=== PATIENT | male | born 1960 | race Two or more races ===

== ENCOUNTER → 2016-11-23 | Outpatient (CLI) | payer OTHER | LOC: RAD 11:54 | PROVIDERS: ATTEND Family Medicine | DX: M25.561 Pain in right knee (principal); M25.562 Pain in left knee; M25.511 Pain in right shoulder; M25.512 Pain in left shoulder; M17.12 Unilateral primary osteoarthritis, left knee; M11.261 Other chondrocalcinosis, right knee ==

== ENCOUNTER → 2016-11-28 | Outpatient (CLI) | payer OTHER | LOC: RAD 13:39 | DX: B18.2 Chronic viral hepatitis C (principal); R10.84 Generalized abdominal pain | CPT/HCPCS: 74150 ==

== ENCOUNTER → 2017-06-17 | Outpatient (CLI) | payer MEDICAID ==
--- NOTE | 2017-06-17 10:36 | RADIOLOGY REPORT (SQ) ---
EXAM DESCRIPTION: C SP 4 OR 5 VIEWS COMPLETED DATE/TIME: 06/17/2017 9:11 am REASON FOR STUDY: CERVICALGIA M54.2 CERVICALGIA COMPARISON: None. NUMBER OF VIEWS: Five views. TECHNIQUE: AP, lateral, obliques and odontoid radiographic images acquired of the cervical spine. LIMITATIONS: None. FINDINGS: MINERALIZATION: Normal. ALIGNMENT: There is straightening cervical spine on the lateral view. VERTEBRAE: Vertebral bodies of normal height. DISCS: There is mild disc space narrowing at C5-6 with anterior and posterior osteophytes. FORAMINA: No osteophytes or foraminal narrowing. LATERAL AND POSTERIOR ELEMENTS: Facets, lateral masses and spinous processes without significant find ings. HARDWARE: None in the spine. SOFT TISSUES: No masses or calcifications. Lung apices clear. OTHER: No other significant finding. IMPRESSION: 1. Mild degenerative disc disease and spondylosis. 2. There is straightening of the cervical spine. TECHNICAL DOCUMENTATION: JOB ID: [id number] [email or web address]- All Rights Reserved
== END ==
LOC: OD 08:35
PROVIDERS: ATTEND Family Medicine
DX: M54.2 Cervicalgia (principal); M50.30 Other cervical disc degeneration, unspecified cervical region; M47.892 Other spondylosis, cervical region
CPT/HCPCS: 72050

== ENCOUNTER 2017-07-03 08:32 | Day surgery (SDC) | payer MEDICAID ==
[~2017-07-03 08:32] MED LIST: DIPHENHYDRAMINE HCL 50 MG/ML VIAL ONE; EPINEPHRINE INJ 1 MG/10 ML DISP.SYRIN ONE; FLUMAZENIL INJ 0.5 MG/5 ML VIAL IV ONE; GLUCAGON,HUMAN RECOMB 1 MG INJ ONE; MIDAZOLAM 2 MG/2 ML INJ ONE; NALOXONE HCL INJ/PF 0.4 MG/1 ML SDV ONE; ONDANSETRON HCL INJ/PF 4 MG/2 ML SDV ONE
[2017-07-03] MEDS: MIDAZOLAM 2 MG/2 ML INJ ONE ×2 (09:39→09:48)
[2017-07-03] MEDS: FENTANYL CITRATE INJ/PF 100 MCG/2 ML AMPUL ONE ×4 (09:41→09:51)
--- NOTE | 2017-07-03 10:13 | Operative Report ---
Operative Report DATE OF SURGERY: 07/03/17 Operative Report: The risks, benefits and alternatives of the procedure including risks of bleeding, perforation requiring surgery are explained to the patient in detail and informed consent was obtained. Patient was taken back to the endoscopy suite and placed in the left, lateral decubital position. A rectal examination was done which did not reveal any masses tenderness or fissures. Timeout was called. Conscious sedation medications are provided. An Olympus videoscope was inserted into the patient's rectum. It is carefully guided all the way to the cecum. Cecum was identified by the usual anatomical landmarks including the ileocecal valve as well as appendiceal office. Prep is good. Scope was then sequentially pulled back via the various segments of the colon including the ascending colon, hepatic flexure, transverse colon, splenic flexure, descending colon and finding to the rectosigmoid portions of the colon. Retroflexion maneuver is performed. The risks benefits and alternatives of the procedure explained to the patient in detail and informed consent is obtained.A GIF Olympus video scope was inserted into the patient's mouth and hypopharynx, the esophagus is identified intubated and insufflated, the scope was then advanced through the esophagus stomach and duodenum, retroflexion maneuver is done, the esophagus stomach and first and second portions of the duodenum examined PREOPERATIVE DIAGNOSIS: Blood in the stool ,epigastric pain rule out peptic ulcer disease POSTOPERATIVE DIAGNOSIS: Colon polyp was removed via snare polypectomy. Internal hemorrhoids. Gastritis status post biopsy. Duodenitis OPERATION: Colonoscopy with biopsy. EGD with biopsy SURGEON: NEYDA CHRISTIANSON ANESTHESIA: Moderate Sedation - 6 mg of Versed, 125 mcg of fentanyl. Conscious sedation monitoring time 30 minutes. TISSUE REMOVED OR ALTERED: Colon polyp removed and retrieved. Gastric mucosal specimens obtained to rule out Helicobacter pylori. Distal esophageal specimens obtained to rule out Poole's esophagus COMPLICATIONS: None. ESTIMATED BLOOD LOSS: None. INTRAOPERATIVE FINDINGS: As noted above. PROCEDURE: Patient tolerated procedure well. No immediate postprocedure complications are noted. Patient discharged in good condition. Discharge date 07/03/2017. Discharge diet: Regular. Discharge activity: Regular. 2-3 week follow-up to discuss findings. Patient is instructed to call the office or proceed to the emergency room should there be any further problems or questions. We will wait on biopsies. Surveillance in 5 years
[2017-07-03 11:10] VITALS: BP 142/82
== END 2017-07-03 11:15 | disposition home or self-care (01) ==
LOC: END 08:32
PROVIDERS: ATTEND Internal Medicine Gastroenterology
PROC: 0DBN8ZX Excision of Sigmoid Colon, Via Natural or Artificial Opening Endoscopic, Diagnostic (ICD-10-PCS; 2017-07-03)
PROC: 0DB68ZX Excision of Stomach, Via Natural or Artificial Opening Endoscopic, Diagnostic (ICD-10-PCS; principal; 2017-07-03 09:00)
PROC: 0DB58ZX Excision of Esophagus, Via Natural or Artificial Opening Endoscopic, Diagnostic (ICD-10-PCS; 2017-07-03 09:00)
DX: K63.5 Polyp of colon (principal); K64.8 Other hemorrhoids; K92.1 Melena; K29.80 Duodenitis without bleeding; K29.50 Unspecified chronic gastritis without bleeding; M19.90 Unspecified osteoarthritis, unspecified site; B18.2 Chronic viral hepatitis C; F41.9 Anxiety disorder, unspecified; F32.9 Major depressive disorder, single episode, unspecified; B19.20 Unspecified viral hepatitis C without hepatic coma; Z87.891 Personal history of nicotine dependence; Z79.899 Other long term (current) drug therapy
CPT/HCPCS: 43239; 45380; 88305 ×2; J2250; J3010; J0171; J1200; J1610; J2310; J2405; J3490

== ENCOUNTER → 2018-02-07 | Outpatient (CLI) | payer MEDICAID ==
[2018-02-10 09:37] LABS: HEPATITIS C QUANTITATION HCV Not Detected IU/mL (.)
== END ==
LOC: OD 11:10
PROVIDERS: ATTEND Internal Medicine Gastroenterology
DX: B18.2 Chronic viral hepatitis C (principal); R79.89 Other specified abnormal findings of blood chemistry
CPT/HCPCS: 36415; 87522

== ENCOUNTER → 2018-04-18 | Outpatient (CLI) | payer MEDICAID ==
--- NOTE | 2018-04-18 16:05 | RADIOLOGY REPORT (SQ) ---
EXAM DESCRIPTION: FOOT LEFT COMPLETE COMPLETED DATE/TIME: 04/18/2018 3:56 pm REASON FOR STUDY: PAIN IN LEFT FOOT M25.561 PAIN IN RIGHT KNEE M25.562 PAIN IN LEFT KNEE M79.672 PAIN IN LEFT FOOT COMPARISON: None. NUMBER OF VIEWS: Three views. TECHNIQUE: AP, lateral and oblique radiographic images acquired of the left foot. LIMITATIONS: None. FINDINGS: MINERALIZATION: Normal. BONES: No acute fracture or dislocation. No worrisome bone lesions. JOINTS: No effusions. SOFT TISSUES: There is some soft tissue swelling adjacent to the head of the 1st metatarsal. There a re some small calcifications. There is no significant erosion of the head of the 1st metatarsal. OTHER: No other significant finding. IMPRESSION: Mild soft tissue swelling with calcifications adjacent to the head of the 1st metatarsal . This could indicate early development of a gouty tophus. Correlate clinically. TECHNICAL DOCUMENTATION: JOB ID: [id number] [employer]- All Rights Reserved Reading location - IP/workstation name: [email or web address]
--- NOTE | 2018-04-18 16:07 | RADIOLOGY REPORT (SQ) ---
EXAM DESCRIPTION: KNEE LEFT 4 VIEWS COMPLETED DATE/TIME: 04/18/2018 3:56 pm REASON FOR STUDY: PAIN IN LEFT KNEE M25.561 PAIN IN RIGHT KNEE M25.562 PAIN IN LEFT KNEE M79.672 PAIN IN LEFT FOOT COMPARISON: 11/23/2016 NUMBER OF VIEWS: Four views. TECHNIQUE: AP, lateral, and both oblique radiographic images acquired of the left knee. LIMITATIONS: None. FINDINGS: MINERALIZATION: Normal. BONES: No acute fracture or dislocation. No worrisome bone lesions. JOINT: There is a small joint effusion. Meniscal calcifications are seen in the lateral joint. Ther e is slight narrowing of the medial joint compartment. SOFT TISSUES: No soft tissue swelling. No radio-opaque foreign body. OTHER: No other significant finding. IMPRESSION: Mild degenerative joint changes. Small joint effusion. No fracture. TECHNICAL DOCUMENTATION: JOB ID: [id number] [employer]- All Rights Reserved Reading location - IP/workstation name: [email or web address]
--- NOTE | 2018-04-18 16:09 | RADIOLOGY REPORT (SQ) ---
EXAM DESCRIPTION: KNEE RIGHT 4 VIEWS COMPLETED DATE/TIME: 04/18/2018 3:56 pm REASON FOR STUDY: PAIN IN RIGHT KNEE M25.561 PAIN IN RIGHT KNEE M25.562 PAIN IN LEFT KNEE M79.672 PAIN IN LEFT FOOT COMPARISON: 11/23/2016 NUMBER OF VIEWS: Four views. TECHNIQUE: AP, lateral, and both oblique radiographic images acquired of the right knee. LIMITATIONS: None. FINDINGS: MINERALIZATION: Normal. BONES: No acute fracture or dislocation. No worrisome bone lesions. JOINT: Meniscal calcifications. No joint effusion. SOFT TISSUES: No soft tissue swelling. No radio-opaque foreign body. OTHER: None IMPRESSION: Meniscal calcifications. No joint effusion or other acute abnormality. TECHNICAL DOCUMENTATION: JOB ID: [id number] [employer]- All Rights Reserved Reading location - IP/workstation name: [email or web address]
== END ==
LOC: RAD 15:23
PROVIDERS: ATTEND Family Medicine
DX: M25.561 Pain in right knee (principal); M25.562 Pain in left knee; M25.462 Effusion, left knee; M79.672 Pain in left foot; M25.861 Other specified joint disorders, right knee

== ENCOUNTER 2018-06-13 07:52 | Day surgery (SDC) | payer MEDICAID ==
[2018-06-13] MEDS ORDERED: ONDANSETRON HCL INJ/PF 4 MG/2 ML SDV ONE (07:55)
[2018-06-13] MEDS ORDERED: DIPHENHYDRAMINE HCL 50 MG/ML VIAL ONE (07:55)
[2018-06-13] MEDS ORDERED: NALOXONE HCL INJ/PF 0.4 MG/1 ML SDV ONE (07:56)
[2018-06-13] MEDS ORDERED: FLUMAZENIL INJ 0.5 MG/5 ML VIAL ONE (07:56)
[2018-06-13] MEDS ORDERED: EPINEPHRINE INJ 1 MG/10 ML DISP.SYRIN ONE (07:57)
[2018-06-13] MEDS ORDERED: GLUCAGON,HUMAN RECOMB 1 MG INJ ONE (07:57)
[2018-06-13] MEDS: MIDAZOLAM 2 MG/2 ML INJ ONE ×2 (08:18→08:24)
[2018-06-13] MEDS: FENTANYL CITRATE INJ/PF 100 MCG/2 ML AMPUL ONE ×3 (08:20→08:26)
--- NOTE | 2018-06-13 08:32 | Operative Report ---
Operative Report DATE OF SURGERY: 06/13/18 Operative Report: The risks benefits and alternatives of the procedure explained to the patient in detail and informed consent is obtained.A GIF Olympus video scope was inserted into the patient's mouth and hypopharynx, the esophagus is identified intubated and insufflated, the scope was then advanced through the esophagus stomach and duodenum , retroflexion maneuver is done, the esophagus stomach and first and second portions of the duodenum examined PREOPERATIVE DIAGNOSIS: Epigastric pain history of nonsteroidal use POSTOPERATIVE DIAGNOSIS: Gastric erosion. Gastritis status post biopsy rule out Helicobacter pylori OPERATION: EGD with biopsy SURGEON: NEYDA CHRISTIANSON ANESTHESIA: Moderate Sedation - 4 mg of Versed, 100 mcg of fentanyl. Conscious sedation monitoring time 30 minutes. TISSUE REMOVED OR ALTERED: As noted above. COMPLICATIONS: None. ESTIMATED BLOOD LOSS: None. INTRAOPERATIVE FINDINGS: As noted above. PROCEDURE: Patient tolerated the procedure well. No immediate postprocedure comp occasions are noted. Patient discharged in good condition. Discharge date 06/13/2018. Discharge diet: Regular. Discharge activity: Regular. 2-3 week follow-up to discuss findings. Patient is instructed call the office or proceed to the emergency room should there be any further problems or questions. We will wait on the pathology.
[2018-06-13 09:54] VITALS: BP 134/70
== END 2018-06-13 09:30 | disposition home or self-care (01) ==
LOC: END 07:52
PROVIDERS: ATTEND Internal Medicine Gastroenterology
DX: K29.50 Unspecified chronic gastritis without bleeding (principal); K92.1 Melena; B18.2 Chronic viral hepatitis C; K21.9 Gastro-esophageal reflux disease without esophagitis; Z87.891 Personal history of nicotine dependence; Z79.899 Other long term (current) drug therapy
CPT/HCPCS: 43239; 88305 ×2; J2250; J3010; J0171; J1200; J1610; J2310; J2405; J3490

== ENCOUNTER → 2018-09-24 | Outpatient (CLI) | payer MEDICAID ==
[2018-09-24 09:19] LABS: ABSOLUTE BASOPHILS # (AUTO) 0.1 10^3/uL (0.0-0.2); ABSOLUTE EOSINOPHILS # (AUTO) 0.3 10^3/uL (0.0-0.6); ABSOLUTE LYMPHOCYTES (AUTO) 3.7 10^3/uL (0.5-4.7); ABSOLUTE MONOCYTES (AUTO) 0.5 10^3/uL (0.1-1.4); ABSOLUTE NEUT (AUTO) 4.1 10^3/uL (1.7-8.2); BASOPHILS % (AUTO) 0.8 % (0-2); EOSINOPHILS % (AUTO) 3.9 % (0-6); HEMATOCRIT 39.4 % (37.9-51.0); LYMPHOCYTES % (AUTO) 42.5 % (13-45); MEAN CORPUSCULAR HEMOGLOBIN 31.6 pg (27.0-33.4); MEAN CORPUSCULAR HGB CONC 35.5 g/dL (32.0-36.0); MEAN CORPUSCULAR VOLUME 89 fl (80-97); PLATELET COUNT 280 10^3/uL (150-450); RED BLOOD COUNT 4.42 10^6/uL (4.35-5.55); RED CELL DISTRIBUTION WIDTH 13.3 % (11.5-14.0); SEGMENTED NEUTROPHILS % (AUTO) 46.8 % (42-78); TOTAL CELLS COUNTED % (AUTO) 100 %; WHITE BLOOD COUNT 8.7 10^3/uL (4.0-10.5)
[2018-09-24 09:37] LABS: ALANINE AMINOTRANSFERASE 11 U/L (21-72); ALBUMIN 4.3 g/dL (3.5-5.0); ALKALINE PHOSPHATASE 83 U/L (38-126); ANION GAP 11 (5-19); ASPARTATE AMINO TRANSFERASE 16 U/L (17-59); BILIRUBIN,DIRECT 0.1 mg/dL (0.0-0.4); BILIRUBIN,TOTAL 0.4 mg/dL (0.2-1.3); BLOOD UREA NITROGEN 9 mg/dL (7-20); CALCIUM 9.9 mg/dL (8.4-10.2); CARBON DIOXIDE 32 mmol/L (22-30); CHLORIDE 102 mmol/L (98-107); CHOLESTEROL 178.07 mg/dL (0-200); GLUCOSE 85 mg/dL (75-110); POTASSIUM 4.6 mmol/L (3.6-5.0); SODIUM 145.2 mmol/L (137-145); TOTAL PROTEIN 7.5 g/dL (6.3-8.2); TRIGLYCERIDES 115 mg/dL (<150)
[2018-09-24 09:48] LABS: DIRECT LDL 105 mg/dL (<100)
== END ==
LOC: OD 08:16
PROVIDERS: ATTEND Family Medicine
DX: E01.0 Iodine-deficiency related diffuse (endemic) goiter (principal); I10 Essential (primary) hypertension; Z68.28 Body mass index [BMI] 28.0-28.9, adult
CPT/HCPCS: 36415; 80053; 80061; 83036; 84443; 85025

== ENCOUNTER 2019-03-23 05:47 | Day surgery (SDC) | payer MEDICAID ==
[2019-03-23] MEDS ORDERED: FENTANYL CITRATE INJ/PF 100 MCG/2 ML AMPUL ONE (06:52)
[2019-03-23] MEDS ORDERED: ONDANSETRON HCL INJ/PF 4 MG/2 ML SDV ONE (06:52)
[2019-03-23] MEDS ORDERED: ACETAMINOPHEN 1,000 MG/100 ML RTUPB IV ONE (06:52)
[2019-03-23] MEDS ORDERED: MIDAZOLAM 2 MG/2 ML INJ ONE (06:52)
[2019-03-23] MEDS ORDERED: PROPOFOL INJ 200 MG/20 ML VIAL IV ONE (06:52)
[2019-03-23] MEDS ORDERED: LIDOCAINE 1% INJ-PF (10 MG/ML) 30 ML SDV ONE (06:54)
--- NOTE | 2019-03-23 06:59 | EKG REPORT ---
SEVERITY:- NORMAL ECG - SINUS RHYTHM : Confirmed by: Chinmay Tavares 23-Mar-2019 06:58:43
[2019-03-23 07:02] LABS: HEMATOCRIT 38.4 % (37.9-51.0); HEMOGLOBIN 12.8 g/dL (13.5-17.0); MEAN CORPUSCULAR HEMOGLOBIN 28.9 pg (27.0-33.4); MEAN CORPUSCULAR HGB CONC 33.4 g/dL (32.0-36.0); MEAN CORPUSCULAR VOLUME 86 fl (80-97); PLATELET COUNT 269 10^3/uL (150-450); RED BLOOD COUNT 4.44 10^6/uL (4.35-5.55); RED CELL DISTRIBUTION WIDTH 13.3 % (11.5-14.0); WHITE BLOOD COUNT 10.8 10^3/uL (4.0-10.5)
[2019-03-23 07:28] LABS: ANION GAP 11 (5-19); BLOOD UREA NITROGEN 7 mg/dL (7-20); CALCIUM 9.7 mg/dL (8.4-10.2); CARBON DIOXIDE 31 mmol/L (22-30); CHLORIDE 102 mmol/L (98-107); GLUCOSE 97 mg/dL (75-110); POTASSIUM 3.9 mmol/L (3.6-5.0); SODIUM 144.1 mmol/L (137-145)
--- NOTE | 2019-03-23 07:32 | Operative Report ---
Operative Report DATE OF SURGERY: 03/23/19 PREOPERATIVE DIAGNOSIS: Arthrofibrosis status post right knee arthroplasty OPERATION: Closed manipulation right knee SURGEON: DAVID MENDIETA ANESTHESIA: Moderate Sedation ESTIMATED BLOOD LOSS: 0 PROCEDURE: With the patient supine Afrin table the range of motion of the knee is assessed preoperatively. Its photographed with a range of motion of 3 to 90 degrees. Its manipulated with an increase in extension to 0 degrees and further flexion to 135 degrees. Both of these positions are documented photographically. The patient Center and return to the PACU in satisfactory condition.
--- NOTE | 2019-03-23 07:35 | Discharge Summary ---
Discharge Summary (SDC) - Discharge Final Diagnosis: Arthrofibrosis right knee Date of Surgery: 03/23/19 Discharge Date: 03/23/19 Condition: Good Treatment or Instructions: Activity as tolerated. Continue with aggressive physical therapy. Prescriptions: Oxycodone HCl/Acetaminophen [Percocet 5-325 mg Tablet] 1 tab PO Q6 PRN #40 tab PRN Reason: Referrals: INGRID HANSEN DO [Primary Care Provider] - Discharge Diet: As Tolerated, Regular Respiratory Treatments at Home: Deep Breathing/Coughing Discharge Activity: Activity As Tolerated, Other - Resume physical therapy tomorrow Activities Provided by Home Health Agency: Physical Therapy Report the Following to Your Physician Immediately: Shortness of Breath, Fever over 101 Degrees
[2019-03-23] MEDS ORDERED: OXYCODONE-ACETAMINOPHEN 5-325 MG TABLET PO PRN (07:50)
[2019-03-23] MEDS ORDERED: MEPERIDINE HCL/PF INJ 25 MG/1 ML DISP.SYRIN IV PRN (08:04)
[2019-03-23] MEDS ORDERED: DIPHENHYDRAMINE HCL 50 MG/ML VIAL IV PRN (08:04)
[2019-03-23] MEDS ORDERED: FENTANYL CITRATE INJ/PF 100 MCG/2 ML AMPUL IV PRN ×3 (08:04)
[2019-03-23] MEDS ORDERED: ONDANSETRON HCL INJ/PF 4 MG/2 ML SDV IV PRN (08:04)
[2019-03-23] MEDS ORDERED: OXYCODONE-ACETAMINOPHEN 5-325 MG TABLET ONE (08:12)
[2019-03-23 09:38] VITALS: BP 179/89
== END 2019-03-23 09:35 | disposition home or self-care (01) ==
LOC: OROUT 05:47
PROVIDERS: ATTEND Orthopaedic Surgery
DX: M24.661 Ankylosis, right knee (principal); Z96.659 Presence of unspecified artificial knee joint; E05.90 Thyrotoxicosis, unspecified without thyrotoxic crisis or storm; K21.9 Gastro-esophageal reflux disease without esophagitis; Z87.891 Personal history of nicotine dependence
CPT/HCPCS: 36415; 85027; 80048; 93005; 93010; 27599; J2250; J3010; J3490; J2405; J2704; J0131; 1380

== ENCOUNTER 2019-03-27 22:34 | Emergency (ER) | payer MEDICAID ==
[2019-03-28] MEDS ORDERED: LISINOPRIL 10 MG TABLET PO ONE (02:40)
--- NOTE | 2019-03-28 02:43 | ER Document Report ---
ED General - General Chief Complaint: Blood Pressure Problem Stated Complaint: BLOOD PRESSURE ISSUES Time Seen by Provider: 03/28/19 01:37 Primary Care Provider: INGRID HANSEN DO [Primary Care Provider] - Follow up in 3-5 days Notes: Patient is a 58-year-old male with a past medical history of essential hypertension who presents due to concerns of his blood pressure being elevated. Patient states that he took his metoprolol 25 mg today but checked his blood pressure at home and that it was still very high. States that the blood pressure was 168 at home. He denies any associated symptoms with this blood pressure. Has been taking metoprolol for the past 1 month and does not feel like it is working. No obvious worsening factor his blood pressure. Specifically denies any chest pain, shortness of breath, headache, weakness or numbness. Has not yet followed up with his primary doctor regarding today's concerns. The history and physical exam was obtained by the provider using Fijian. A formal hospital professor of economics was offered to the patient and any family at the bedside at the beginning of the encounter and was declined. TRAVEL OUTSIDE OF THE [place] IN LAST 30 DAYS: No - Related Data Allergies/Adverse Reactions: No Known Allergies Allergy (Verified 07/03/17 08:58) Past Medical History - General Information source: Patient - Social History Smoking Status: Never Smoker Frequency of alcohol use: None Drug Abuse: None Lives with: Family Family History: Reviewed & Not Pertinent Patient has suicidal ideation: No Patient has homicidal ideation: No - Past Medical History Cardiac Medical History: Reports: Hx Hypertension Denies: Hx Coronary Artery Disease, Hx Heart Attack Pulmonary Medical History: Denies: Hx Asthma, Hx Bronchitis, Hx COPD, Hx Pneumonia Neurological Medical History: Denies: Hx Cerebrovascular Accident, Hx Seizures Renal/ Medical History: Denies: Hx Peritoneal Dialysis Musculoskeletal Medical History: Reports Hx Arthritis - Immunizations Hx Diphtheria, Pertussis, Tetanus Vaccination: No Review of Systems - Review of Systems Notes: Constitutional: Negative for fever. HENT: Negative for sore throat. Eyes: Negative for visual changes. Cardiovascular: Negative for chest pain. Respiratory: Negative for shortness of breath. Gastrointestinal: Negative for abdominal pain, vomiting or diarrhea. Genitourinary: Negative for dysuria. Musculoskeletal: Negative for back pain. Skin: Negative for rash. Neurological: Negative for headaches, weakness or numbness. 10 point ROS negative except as marked above and in HPI. Physical Exam - Vital signs Vitals: Temp Pulse Resp BP Pulse Ox 98.3 F 66 20 172/80 H 96 03/27/19 22:55 03/27/19 22:55 03/27/19 22:55 03/27/19 22:55 03/27/19 22:55 Interpretation: Hypertensive Notes: PHYSICAL EXAMINATION: GENERAL: Well-appearing, well-nourished and in no acute distress. HEAD: Atraumatic, normocephalic. EYES: Pupils equal round and reactive to light, extraocular movements intact, sclera anicteric, conjunctiva are normal. ENT: nares patent, oropharynx clear without exudates. Moist mucous membranes. NECK: Normal range of motion, supple without lymphadenopathy LUNGS: Breath sounds clear to auscultation bilaterally and equal. No wheezes rales or rhonchi. HEART: Regular rate and rhythm without murmurs ABDOMEN: Soft, nontender, normoactive bowel sounds. No guarding, no rebound. No masses appreciated. EXTREMITIES: Normal range of motion, no pitting or edema. No cyanosis. NEUROLOGICAL: No focal neurological deficits. Moves all extremities spontaneously and on command. PSYCH: Normal mood, normal affect. SKIN: Warm, Dry, normal turgor, no rashes or lesions noted. Course - Re-evaluation Re-evalutation: 03/28/19 02:40 Presentation of asymptomatic hypertension. Patient denies any symptoms concerning for SAH, dissection, DC, or encephalopaty. Alert, oriented, and denies any symptoms at time of assessment. Normal neuro exam. Per ACE[facility] policy guidelines, will therefore not obtain any labs or EKG. and start the patient on lisinopril. I have discussed critical importance of follow up with PCP within 1 week and increased risk of devastating stroke, heart attack, respiratory distress, and other life threatening complications if blood pressure is not reduced appropriately. Diet and exercise habits also discussed. Patient will be discharged with return precautions and follow-up recommendations. - Vital Signs Vital signs: Temp Pulse Resp BP Pulse Ox 97.6 F 52 L 15 163/72 H 96 03/28/19 01:48 03/28/19 01:48 03/28/19 01:48 03/28/19 01:48 03/28/19 01:48 Discharge - Discharge Clinical Impression: Essential hypertension Condition: Good Disposition: HOME, SELF-CARE Additional Instructions: You were seen today for blood pressure that was high. This is a long-term risk factor for multiple medical problems including heart attack and stroke. However, the blood pressure in of itself will not cause you to have an acute stroke or heart attack over the course of just several days or weeks. You need to have a gradual reduction of your blood pressure back to normal levels over the next several months in conjunction with your primary care physician. Return if you develop headache, weakness, numbness, chest pain, pass out, or have any other symptoms that are concerning to you. Prescriptions: Lisinopril [Zestril] 20 mg PO DAILY #30 tablet Referrals: INGRID HANSEN DO [Primary Care Provider] - Follow up in 3-5 days
[2019-03-28 02:50] VITALS: BP 163/72
== END 2019-03-28 02:53 | disposition home or self-care (01) ==
LOC: ER 22:34
DX: I10 Essential (primary) hypertension (principal)
CPT/HCPCS: 99283; J3490

== ENCOUNTER → 2019-05-13 | Outpatient (CLI) | payer MEDICAID ==
[2019-05-13 09:36] LABS: ABSOLUTE BASOPHILS # (AUTO) 0.2 10^3/uL (0.0-0.2); ABSOLUTE EOSINOPHILS # (AUTO) 0.4 10^3/uL (0.0-0.6); ABSOLUTE LYMPHOCYTES (AUTO) 4.4 10^3/uL (0.5-4.7); ABSOLUTE MONOCYTES (AUTO) 0.6 10^3/uL (0.1-1.4); ABSOLUTE NEUT (AUTO) 4.8 10^3/uL (1.7-8.2); BASOPHILS % (AUTO) 2.3 % (0-2); EOSINOPHILS % (AUTO) 3.7 % (0-6); HEMATOCRIT 42.5 % (37.9-51.0); LYMPHOCYTES % (AUTO) 42.2 % (13-45); MEAN CORPUSCULAR HEMOGLOBIN 28.4 pg (27.0-33.4); MEAN CORPUSCULAR HGB CONC 32.9 g/dL (32.0-36.0); MEAN CORPUSCULAR VOLUME 86 fl (80-97); MONOCYTES % (AUTO) 5.9 % (3-13); PLATELET COUNT 322 10^3/uL (150-450); RED BLOOD COUNT 4.93 10^6/uL (4.35-5.55); RED CELL DISTRIBUTION WIDTH 15.1 % (11.5-14.0); SEGMENTED NEUTROPHILS % (AUTO) 45.9 % (42-78); TOTAL CELLS COUNTED % (AUTO) 100 %; WHITE BLOOD COUNT 10.5 10^3/uL (4.0-10.5)
[2019-05-13 10:07] LABS: ALANINE AMINOTRANSFERASE 14 U/L (21-72); ALBUMIN 4.5 g/dL (3.5-5.0); ALKALINE PHOSPHATASE 95 U/L (38-126); ANION GAP 8 (5-19); ASPARTATE AMINO TRANSFERASE 17 U/L (17-59); BILIRUBIN,DIRECT 0.2 mg/dL (0.0-0.4); BILIRUBIN,TOTAL 0.3 mg/dL (0.2-1.3); BLOOD UREA NITROGEN 19 mg/dL (7-20); CARBON DIOXIDE 34 mmol/L (22-30); CHLORIDE 97 mmol/L (98-107); CHOLESTEROL 210.46 mg/dL (0-200); GLUCOSE 95 mg/dL (75-110); POTASSIUM 4.5 mmol/L (3.6-5.0); SODIUM 139.3 mmol/L (137-145); TOTAL PROTEIN 7.9 g/dL (6.3-8.2); TRIGLYCERIDES 160 mg/dL (<150)
[2019-05-13 10:18] LABS: DIRECT LDL 128 mg/dL (<100)
[2019-05-13 10:20] LABS: FREE T3 3.13 pg/mL (2.77-5.27); FREE T4 (FREE THYROXINE) 1.26 ng/dL (0.78-2.19)
[2019-05-13 10:34] LABS: THYROID STIMULATING HORMONE 1.25 uIU/mL (0.47-4.68)
== END ==
LOC: OD 09:10
PROVIDERS: ATTEND Family Medicine
DX: E04.9 Nontoxic goiter, unspecified (principal); G47.33 Obstructive sleep apnea (adult) (pediatric); I10 Essential (primary) hypertension; M17.0 Bilateral primary osteoarthritis of knee
CPT/HCPCS: 36415; 80053; 80061; 84439; 84443; 84481; 85025

== ENCOUNTER 2019-09-21 06:57 | Day surgery (SDC) | payer MEDICAID ==
[2019-09-21] MEDS ORDERED: PROPOFOL INJ 200 MG/20 ML VIAL IV ONE (07:37)
[2019-09-21] MEDS ORDERED: SIMETHICONE 80 MG TAB.CHEW ONE (09:17)
[2019-09-21 09:20] VITALS: BP 148/83
--- NOTE | 2019-09-21 12:45 | Operative Report ---
Operative Report DATE OF SURGERY: 09/21/19 Operative Report: The risks, benefits and alternatives of the procedure including the risk of bleeding, perforation requiring surgery have been explained to the patient in detail and informed consent has been obtained. Patient is taken back to the endoscopy suite and placed in the left, lateral decubital position. Timeout was called. Propofol medication is administered. Rectal examination is done which did not reveal any masses, tears or fissures. An Olympus videoscope was inserted into the patient's rectum. Scope was then carefully advanced all the way to the cecum. Cecum was identified by the usual anatomical landmarks including the ileocecal valve as well as the appendiceal office. Photodocumentation is obtained. Scope was then sequentially pulled back via the rest segments of the colon including the ascending colon, hepatic flexure, transverse colon, splenic flexure, descending colon finding to the rectosigmoid portions of the colon. Retroflexion maneuver is performed. PREOPERATIVE DIAGNOSIS: Change in bowel habits, abdominal distention POSTOPERATIVE DIAGNOSIS: Colon polyp descending colon removed via snare polypectomy and retrieved. Random biopsies taken of the hands of the colon rule out collagenous colitis. Diverticulosis without any evidence of diverticulitis. Internal hemorrhoids OPERATION: Colonoscopy with snare polypectomy. Colonoscopy with biopsy SURGEON: NEYDA CHRISTIANSON ANESTHESIA: LMAC TISSUE REMOVED OR ALTERED: As noted above. COMPLICATIONS: None. ESTIMATED BLOOD LOSS: None. INTRAOPERATIVE FINDINGS: As noted above. PROCEDURE: Patient tolerated the procedure well. No immediate postprocedure complications are noted. Patient is discharged in good condition. Discharge date 09/21/2019. Discharge diet: Regular. Discharge activity: Regular. 2 to 3-week follow-up to discuss findings. Patient is instructed to call the office or proceed to the emergency room should there be any further questions. Wait on the pathology. 5-year surveillance colonoscopy.
== END 2019-09-21 09:20 | disposition home or self-care (01) ==
LOC: END 06:57
PROVIDERS: ATTEND Internal Medicine Gastroenterology
DX: K57.30 Diverticulosis of large intestine without perforation or abscess without bleeding (principal); D12.4 Benign neoplasm of descending colon; K64.8 Other hemorrhoids; I10 Essential (primary) hypertension; Z87.891 Personal history of nicotine dependence; G47.33 Obstructive sleep apnea (adult) (pediatric)
CPT/HCPCS: 45380; 45385; 88305 ×2; 00811; J2704; 811

== ENCOUNTER → 2020-02-16 | Outpatient (CLI) | payer MEDICAID ==
[2020-02-16 09:35] LABS: ABSOLUTE BASOPHILS # (AUTO) 0.1 10^3/uL (0.0-0.2); ABSOLUTE EOSINOPHILS # (AUTO) 0.4 10^3/uL (0.0-0.6); ABSOLUTE LYMPHOCYTES (AUTO) 2.6 10^3/uL (0.5-4.7); ABSOLUTE MONOCYTES (AUTO) 0.6 10^3/uL (0.1-1.4); ABSOLUTE NEUT (AUTO) 5.2 10^3/uL (1.7-8.2); BASOPHILS % (AUTO) 1.1 % (0-2); EOSINOPHILS % (AUTO) 4.9 % (0-6); HEMATOCRIT 41.6 % (37.9-51.0); HEMOGLOBIN 14.4 g/dL (13.5-17.0); LYMPHOCYTES % (AUTO) 28.9 % (13-45); MEAN CORPUSCULAR HEMOGLOBIN 30.2 pg (27.0-33.4); MEAN CORPUSCULAR HGB CONC 34.7 g/dL (32.0-36.0); MEAN CORPUSCULAR VOLUME 87 fl (80-97); MONOCYTES % (AUTO) 6.7 % (3-13); PLATELET COUNT 288 10^3/uL (150-450); RED BLOOD COUNT 4.78 10^6/uL (4.35-5.55); RED CELL DISTRIBUTION WIDTH 13.1 % (11.5-14.0); SEGMENTED NEUTROPHILS % (AUTO) 58.4 % (42-78); TOTAL CELLS COUNTED % (AUTO) 100 %
[2020-02-16 10:00] LABS: ALBUMIN 4.6 g/dL (3.5-5.0); ALKALINE PHOSPHATASE 90 U/L (38-126); ANION GAP 9 (5-19); ASPARTATE AMINO TRANSFERASE 23 U/L (17-59); BILIRUBIN,DIRECT 0.3 mg/dL (0.0-0.4); BILIRUBIN,TOTAL 0.4 mg/dL (0.2-1.3); BLOOD UREA NITROGEN 13 mg/dL (7-20); CALCIUM 9.8 mg/dL (8.4-10.2); CARBON DIOXIDE 32 mmol/L (22-30); CHLORIDE 98 mmol/L (98-107); CHOLESTEROL 179.38 mg/dL (0-200); GLUCOSE 95 mg/dL (75-110); POTASSIUM 4.7 mmol/L (3.6-5.0); TOTAL PROTEIN 8.3 g/dL (6.3-8.2); TRIGLYCERIDES 149 mg/dL (<150)
[2020-02-16 10:10] LABS: DIRECT LDL 111 mg/dL (<100)
[2020-02-16 10:16] LABS: FREE T3 3.61 pg/mL (2.77-5.27); FREE T4 (FREE THYROXINE) 1.39 ng/dL (0.78-2.19)
[2020-02-16 10:30] LABS: THYROID STIMULATING HORMONE 1.12 uIU/mL (0.47-4.68)
== END ==
LOC: OD 08:53
PROVIDERS: ATTEND Family Medicine
DX: E03.9 Hypothyroidism, unspecified (principal); E78.2 Mixed hyperlipidemia; I10 Essential (primary) hypertension; Z13.1 Encounter for screening for diabetes mellitus
CPT/HCPCS: 36415; 80053; 80061; 83036; 84439; 84443; 84481; 85025

== ENCOUNTER 2020-06-15 05:32 | Day surgery (SDC) | payer MEDICAID ==
[2020-06-10 10:50] LABS: HEMATOCRIT 39.5 % (37.9-51.0); HEMOGLOBIN 13.6 g/dL (13.5-17.0); MEAN CORPUSCULAR HEMOGLOBIN 30.2 pg (27.0-33.4); MEAN CORPUSCULAR HGB CONC 34.3 g/dL (32.0-36.0); MEAN CORPUSCULAR VOLUME 88 fl (80-97); PLATELET COUNT 301 10^3/uL (150-450); RED BLOOD COUNT 4.48 10^6/uL (4.35-5.55); RED CELL DISTRIBUTION WIDTH 13.3 % (11.5-14.0); WHITE BLOOD COUNT 9.1 10^3/uL (4.0-10.5)
[2020-06-10 11:14] LABS: ANION GAP 8 (5-19); BLOOD UREA NITROGEN 12 mg/dL (7-20); CALCIUM 10.2 mg/dL (8.4-10.2); CARBON DIOXIDE 31 mmol/L (22-30); CHLORIDE 100 mmol/L (98-107); GLUCOSE 64 mg/dL (75-110)
--- NOTE | 2020-06-11 10:25 | EKG REPORT ---
SEVERITY:- NORMAL ECG - SINUS RHYTHM : Confirmed by: Chinmay Tavares 11-Jun-2020 10:24:15
[~2020-06-15 05:32] MED LIST changes: +ACETAMINOPHEN 325 MG TABLET PO PRN; +CEFAZOLIN 1 GM/D5W RTU 1 GM/50 ML RTUPB IV ONE; +CEFAZOLIN 1 GM/D5W RTU 1 GM/50 ML RTUPB IV PRN; -DIPHENHYDRAMINE HCL 50 MG/ML VIAL ONE; -EPINEPHRINE INJ 1 MG/10 ML DISP.SYRIN ONE; -FLUMAZENIL INJ 0.5 MG/5 ML VIAL IV ONE; -GLUCAGON,HUMAN RECOMB 1 MG INJ ONE; +LACTATED RINGERS 1000 ML IV PRN; +LIDOCAINE 0.5% INJ-PF (5 MG/ML) 50 ML SDV SUBCUT PRN; -MIDAZOLAM 2 MG/2 ML INJ ONE; -NALOXONE HCL INJ/PF 0.4 MG/1 ML SDV ONE; -ONDANSETRON HCL INJ/PF 4 MG/2 ML SDV ONE
[2020-06-15] MEDS ORDERED: LIDOCAINE 2% INJ (20 MG/ML) 20 ML MDV ONE (07:01)
[2020-06-15] MEDS ORDERED: FENTANYL CITRATE INJ/PF 100 MCG/2 ML AMPUL ONE ×2 (07:02→08:51)
[2020-06-15] MEDS ORDERED: PROPOFOL INJ 200 MG/20 ML VIAL IV ONE (07:02)
[2020-06-15] MEDS ORDERED: MIDAZOLAM 2 MG/2 ML INJ ONE (07:02)
[2020-06-15] MEDS ORDERED: BUPIVACAINE HCL 0.25 % INJ/PF (2.5 MG/1 ML) 30 ML VIAL ONE (07:08)
[2020-06-15] MEDS ORDERED: BUPIVACAINE INJ/PF LIPOSOME/PF 266 MG/20 ML SDV ONE (07:08)
[2020-06-15] MEDS ORDERED: MEPERIDINE HCL/PF INJ 25 MG/1 ML DISP.SYRIN IV PRN (07:38)
[2020-06-15] MEDS ORDERED: PROMETHAZINE HCL INJ 25 MG/1 ML VIAL IV PRN (07:38)
[2020-06-15] MEDS ORDERED: OXYCODONE-ACETAMINOPHEN 5-325 MG TABLET PO PRN ×2 (07:38)
[2020-06-15] MEDS ORDERED: ONDANSETRON HCL INJ/PF 4 MG/2 ML SDV IV PRN (07:38)
[2020-06-15] MEDS ORDERED: DIPHENHYDRAMINE HCL 50 MG/ML VIAL IV PRN (07:38)
[2020-06-15] MEDS ORDERED: MORPHINE SULFATE 10 MG/ML INJ IV PRN (07:38)
[2020-06-15] MEDS ORDERED: FENTANYL CITRATE INJ/PF 100 MCG/2 ML AMPUL IV PRN ×3 (07:38)
--- NOTE | 2020-06-15 08:32 | Operative Report ---
Operative Report DATE OF SURGERY: 06/15/20 PREOPERATIVE DIAGNOSIS: Umbilical hernia with overlying threatened skin POSTOPERATIVE DIAGNOSIS: Same OPERATION: Open umbilical herniorrhaphy with 6.[address] mesh SURGEON: MELINDA BANUELOS 1ST PROCESS ENGINEERING MANAGER: MICHELLE TITUS ANESTHESIA: GA TISSUE REMOVED OR ALTERED: None COMPLICATIONS: None ESTIMATED BLOOD LOSS: Minimal INTRAOPERATIVE FINDINGS: See below PROCEDURE: Patient was taken the preop holding her to the main operating room where general anesthesia was induced. The arms were abducted, abdominal wall prepped and draped with Betadine. Surgical plan surgical timeout were conducted. Markings were made on the skin for an open umbilical hernia. The skin was anesthetized with quarter percent Marcaine. Approximately 7 to 8 cm incision was made above around and below the umbilicus. Subcutaneous tissue was divided electrocautery, and the skin flaps were elevated off of the underlying hernia sac. The fascial defect was approximately 2-1/2 cm in diameter. The sac was entered and the peritoneal cavity inspected and there was no evidence of incarcerated bowel. The viscera were completely free of the anterior abdominal wall. We now the peritoneum from the is for cellulose fashion a circumferential fashion by placing a Allis clamp on the fascia, and a hemostat on the peritoneum, gently opening up the potential space using a combination of blunt, sharp and gentle electrocautery dissection. Small arterial quarry plug and feather driller was cauterized in the right lower portion of the dissection field. Once we had been adequate pocket developed in a circumferential fashion to accommodate the extraperitoneal mesh, I closed the peritoneum with a running Vicryl suture. We now brought onto the field a non- Bard 6.[address] mesh. We trimmed the fixation tails off, and now placed 4 looped sutures using 0 PDS at the 12, 3, 6, 9:00 positions going through the abdominal wall fascia, then through the mesh then back up to the anterior abdominal wall fascia. The mesh was then folded, placed through the fascial defect then splayed out in the retroperitoneal space nicely. Now we brought the sutures up and secured knots at the respective positions, thereby fixating the mesh securely into position. I now closed the central fascial defect with a running 0 PDS suture. Subcutaneous tissue and skin reapproximated with 2-0 Vicryl and 3-0 Vicryl. Skin closed with skin glue. Bulky dressing, and abdominal wall binder applied. Patient tolerated procedure well, extubated, and taken recovery room in stable condition. The physician assistant corporation counsel, Ms. Dwyer, provided assistance during this case by: retracting tissue, instillation of local anesthesia and closure of skin incisions including the umbilicus, and application of skin glue.
--- NOTE | 2020-06-15 08:36 | Discharge Summary ---
Discharge Summary (SDC) - Discharge Final Diagnosis: Umbilical hernia with overlying threatened skin Date of Surgery: 06/15/20 Discharge Date: 06/15/20 Condition: Good Forms: ASU Anesthesia D/C Instruction, Discharge POC-Surgical Service Treatment or Instructions: No heavy lifting; wear abdominal binder when out of bed; regular diet; take stool softener. [facility]. May shower in 48 hours. May take Tylenol, Motrin, or prescription Toradol as needed for pain Prescriptions: Ketorolac Tromethamine [Toradol 10 mg Tablet] 10 mg PO Q6HP PRN #14 tablet PRN Reason: Referrals: MELINDA ZAPIEN MD [ACTIVE STAFF] - Discharge Diet: As Tolerated Discharge Activity: Activity As Tolerated Home Care Assistance: None Needed Report the Following to Your Physician Immediately: Shortness of Breath, Increase in Pain, Fever over 101 Degrees
[2020-06-15] MEDS ORDERED: ONDANSETRON HCL INJ/PF 4 MG/2 ML SDV ONE (08:46)
[2020-06-15] MEDS ORDERED: KETOROLAC TROMETHAMINE 60 MG/2 ML SDV ONE (08:46)
[2020-06-15] MEDS ORDERED: OXYCODONE-ACETAMINOPHEN 5-325 MG TABLET ONE (09:11)
[2020-06-15 10:34] VITALS: BP 148/74
[2020-06-15] MEDS ORDERED: SUCCINYLCHOLINE CHLORIDE INJ 200 MG/10 ML VIAL ONE (14:36)
[2020-06-15] MEDS ORDERED: ROCURONIUM BROMIDE INJ 50 MG/5 ML VIAL IV ONE (14:36)
== END 2020-06-15 10:30 | disposition home or self-care (01) ==
LOC: OROUT 05:32
PROVIDERS: ATTEND Surgery
DX: K42.9 Umbilical hernia without obstruction or gangrene (principal); Z03.818 Encounter for observation for suspected exposure to other biological agents ruled out; I10 Essential (primary) hypertension; E03.9 Hypothyroidism, unspecified
CPT/HCPCS: 49587; 93005; 36415; 85027; 87635; 80048; 93010; J2250; J3490 ×3; J0690; J1885; J3010; J0330; J2405; J2704; C9803; C1781; C9290

== ENCOUNTER → 2020-07-20 | Outpatient (CLI) | payer MEDICAID ==
[2020-07-20 10:12] LABS: ABSOLUTE BASOPHILS # (AUTO) 0.1 10^3/uL (0.0-0.2); ABSOLUTE EOSINOPHILS # (AUTO) 0.5 10^3/uL (0.0-0.6); ABSOLUTE LYMPHOCYTES (AUTO) 2.3 10^3/uL (0.5-4.7); ABSOLUTE MONOCYTES (AUTO) 0.5 10^3/uL (0.1-1.4); ABSOLUTE NEUT (AUTO) 3.7 10^3/uL (1.7-8.2); BASOPHILS % (AUTO) 1.9 % (0-2); HEMATOCRIT 38.7 % (37.9-51.0); HEMOGLOBIN 13.2 g/dL (13.5-17.0); LYMPHOCYTES % (AUTO) 32.6 % (13-45); MEAN CORPUSCULAR HEMOGLOBIN 30.1 pg (27.0-33.4); MEAN CORPUSCULAR HGB CONC 34.1 g/dL (32.0-36.0); MEAN CORPUSCULAR VOLUME 88 fl (80-97); MONOCYTES % (AUTO) 6.9 % (3-13); PLATELET COUNT 274 10^3/uL (150-450); RED BLOOD COUNT 4.38 10^6/uL (4.35-5.55); RED CELL DISTRIBUTION WIDTH 13.2 % (11.5-14.0); SEGMENTED NEUTROPHILS % (AUTO) 51.6 % (42-78); TOTAL CELLS COUNTED % (AUTO) 100 %; WHITE BLOOD COUNT 7.1 10^3/uL (4.0-10.5)
[2020-07-20 10:40] LABS: ALBUMIN 4.5 g/dL (3.5-5.0); ALKALINE PHOSPHATASE 87 U/L (38-126); ANION GAP 8 (5-19); ASPARTATE AMINO TRANSFERASE 21 U/L (17-59); BILIRUBIN,DIRECT 0.2 mg/dL (0.0-0.4); BILIRUBIN,TOTAL 0.4 mg/dL (0.2-1.3); BLOOD UREA NITROGEN 13 mg/dL (7-20); CARBON DIOXIDE 30 mmol/L (22-30); CHLORIDE 103 mmol/L (98-107); CHOLESTEROL 189.67 mg/dL (0-200); GLUCOSE 97 mg/dL (75-110); POTASSIUM 4.8 mmol/L (3.6-5.0); TOTAL PROTEIN 7.6 g/dL (6.3-8.2); TRIGLYCERIDES 85 mg/dL (<150)
[2020-07-20 10:52] LABS: DIRECT LDL 110 mg/dL (<100)
[2020-07-20 10:54] LABS: FREE T3 3.36 pg/mL (2.77-5.27); FREE T4 (FREE THYROXINE) 1.33 ng/dL (0.78-2.19)
[2020-07-20 11:08] LABS: THYROID STIMULATING HORMONE 1.18 uIU/mL (0.47-4.68)
== END ==
LOC: OD 09:24
PROVIDERS: ATTEND Family Medicine
DX: J30.9 Allergic rhinitis, unspecified (principal); E03.9 Hypothyroidism, unspecified; I10 Essential (primary) hypertension; Z68.28 Body mass index [BMI] 28.0-28.9, adult; Z79.899 Other long term (current) drug therapy
CPT/HCPCS: 36415; 80053; 80061; 82785; 84439; 84443; 84481; 85025; 86003

== ENCOUNTER 2020-07-27 16:21 | Emergency (ER) | payer OTHER, MEDICAID ==
[2020-07-27 16:46] VITALS: BP 143/68
[2020-07-27] MEDS ORDERED: METHOCARBAMOL 750 MG TABLET PO ONE (16:55)
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
== END 2020-07-27 18:50 | disposition home or self-care (01) ==
LOC: ER 16:21
DX: M54.2 Cervicalgia (principal); R51 Headache; V49.40XA Driver injured in collision with unspecified motor vehicles in traffic accident, initial encounter; R53.1 Weakness; H53.8 Other visual disturbances; R42 Dizziness and giddiness; I10 Essential (primary) hypertension
CPT/HCPCS: 99284; 70450; 72125; J3490

== ENCOUNTER 2020-08-22 15:46 | Emergency (ER) | payer MEDICAID, OTHER ==
[2020-08-22] MEDS ORDERED: KETOROLAC TROMETHAMINE INJ/PF 30 MG/1 ML SDV IM ONE (16:21)
--- NOTE | 2020-08-22 16:25 | ER Document Report ---
ED Medical Screen (RME) - General Chief Complaint: Lower Abdominal Pain Stated Complaint: LOWER ABDOMINAL PAIN Time Seen by Provider: 08/22/20 16:10 Primary Care Provider: INGRID HANSEN DO [Primary Care Provider] - Follow up as needed Mode of Arrival: Ambulatory Information source: Patient Notes: 59-year-old male presented to ED for complaint of abdominal and back pain. He states he also has right flank pain. He states a week ago Saturday he had trouble going to the bathroom he took about a laxative that the doctor given him and he did have a bowel movement following on Saturday he had a small bowel movement and then he had a small bowel movement every day since then. He states he called the doctor on Saturday and they did not have an appointment but they saw him today when he went in there they told him he had to come to the emergency room right away because he had right flank pain. He states he did vomit on Saturday but has not vomited since then. He does have a history of stomach problems. He states he has had a hernia repair before he does have an abdominal incision open down the center of his abdomen. He does have a history of high blood pressure and hypothyroid. He does not smoke drinks on weekends does not use any drugs does not work and lives alone. Patient is alert oriented respirations regular nonlabored speaking in full sentences. We have ordered blood urine and a CT abdomen pelvis with no contrast at this time. I have greeted and performed a rapid initial assessment of this patient. A comprehensive ED assessment and evaluation of the patient, analysis of test results and completion of medical decision making process will be conducted by an additional ED providers. TRAVEL OUTSIDE OF THE [place] IN LAST 30 DAYS: No - Related Data Allergies/Adverse Reactions: No Known Allergies Allergy (Verified 07/27/20 16:29) Past Medical History - Past Medical History Cardiac Medical History: Reports: Hx Hypertension Denies: Hx Coronary Artery Disease, Hx Heart Attack Pulmonary Medical History: Denies: Hx Asthma, Hx Bronchitis, Hx COPD, Hx Pneumonia Neurological Medical History: Denies: Hx Cerebrovascular Accident, Hx Seizures Renal/ Medical History: Denies: Hx Peritoneal Dialysis Musculoskeltal Medical History: Reports Hx Arthritis - Immunizations Hx Diphtheria, Pertussis, Tetanus Vaccination: No Physical Exam - Vital signs Vitals: Temp Pulse Resp BP Pulse Ox 99.6 F 90 18 151/59 H 97 10/05/20 15:51 08/22/20 15:51 08/22/20 15:51 08/22/20 15:51 08/22/20 15:51 Course - Vital Signs Vital signs: Temp Pulse Resp BP Pulse Ox 99.6 F 90 18 151/59 H 97 08/22/20 15:51 08/22/20 15:51 08/22/20 15:51 08/22/20 15:51 08/22/20 15:51 Doctor's Discharge - Discharge Referrals: INGRID HANSEN DO [Primary Care Provider] - Follow up as needed
[2020-08-22 16:52] LABS: ABSOLUTE BASOPHILS # (AUTO) 0.2 10^3/uL (0.0-0.2); ABSOLUTE EOSINOPHILS # (AUTO) 0.2 10^3/uL (0.0-0.6); ABSOLUTE LYMPHOCYTES (AUTO) 2.1 10^3/uL (0.5-4.7); ABSOLUTE NEUT (AUTO) 11.8 10^3/uL (1.7-8.2); BASOPHILS % (AUTO) 1.1 % (0-2); EOSINOPHILS % (AUTO) 1.2 % (0-6); HEMATOCRIT 39.7 % (37.9-51.0); LYMPHOCYTES % (AUTO) 13.8 % (13-45); MEAN CORPUSCULAR HEMOGLOBIN 30.8 pg (27.0-33.4); MEAN CORPUSCULAR HGB CONC 35.2 g/dL (32.0-36.0); MEAN CORPUSCULAR VOLUME 88 fl (80-97); MONOCYTES % (AUTO) 6.8 % (3-13); PLATELET COUNT 374 10^3/uL (150-450); RED BLOOD COUNT 4.53 10^6/uL (4.35-5.55); RED CELL DISTRIBUTION WIDTH 12.9 % (11.5-14.0); SEGMENTED NEUTROPHILS % (AUTO) 77.1 % (42-78); TOTAL CELLS COUNTED % (AUTO) 100 %; WHITE BLOOD COUNT 15.3 10^3/uL (4.0-10.5)
[2020-08-22 16:59] LABS: APPEARANCE,URINE CLEAR; BILIRUBIN,URINE NEGATIVE (NEGATIVE); COLOR,URINE YELLOW; GLUCOSE, URINE NEGATIVE (NEGATIVE); KETONES,URINE NEGATIVE (NEGATIVE); LEUKOCYTE ESTERASE,URINE NEGATIVE (NEGATIVE); NITRITE,URINE NEGATIVE (NEGATIVE); PROTEIN,URINE NEGATIVE (NEGATIVE); URINE SPECIFIC GRAVITY 1.015; UROBILINOGEN,URINE NEGATIVE mg/dL (<2.0)
[2020-08-22 17:09] LABS: ALBUMIN 4.4 g/dL (3.5-5.0); ALKALINE PHOSPHATASE 94 U/L (38-126); ANION GAP 13 (5-19); ASPARTATE AMINO TRANSFERASE 21 U/L (17-59); BILIRUBIN,DIRECT 0.3 mg/dL (0.0-0.4); BILIRUBIN,TOTAL 0.5 mg/dL (0.2-1.3); BLOOD UREA NITROGEN 13 mg/dL (7-20); CALCIUM 10.1 mg/dL (8.4-10.2); CARBON DIOXIDE 30 mmol/L (22-30); CHLORIDE 93 mmol/L (98-107); GLUCOSE 111 mg/dL (75-110); POTASSIUM 4.6 mmol/L (3.6-5.0); TOTAL PROTEIN 7.9 g/dL (6.3-8.2)
--- NOTE | 2020-08-22 17:56 | RADIOLOGY REPORT (SQ) ---
EXAM DESCRIPTION: CT ABD/PELVIS NO ORAL OR IV IMAGES COMPLETED DATE/TIME: 08/22/2020 5:38 pm REASON FOR STUDY: Abdominal pain, back pain, right flank pain COMPARISON: 11/28/2016 TECHNIQUE: CT scan of the abdomen and pelvis performed without intravenous or oral contrast. Images reviewed with lung, soft tissue, and bone windows. Reconstructed coronal and sagittal MPR images revi ewed. All images stored on PACS. All CT scanners at this facility use dose modulation, iterative reconstruction, and/or weight based d osing when appropriate to reduce radiation dose to as low as reasonably achievable (ALARA). [facility]: Dose Right [facility]: CareDose [facility]: Dose Right [facility]: Teradose 4D [facility]: [employer] RADIATION DOSE: CT Rad equipment meets quality standard of care and radiation dose reduction techniq ues were employed. CTDIvol: 7.8 mGy. DLP: 429 mGy-cm.mGy. LIMITATIONS: None. FINDINGS: LOWER CHEST: No significant findings. No nodules or infiltrates. NON-CONTRASTED LIVER, SPLEEN, ADRENALS: Evaluation limited by lack of IV contrast. No identified sign ificant masses. PANCREAS: No masses. No peripancreatic inflammatory changes. GALLBLADDER: No calcified stones. No inflammatory changes to suggest cholecystitis. RIGHT KIDNEY AND URETER: No cysts identified. No solid masses. No calcified stones. No hydronephrosis or hydroureter. LEFT KIDNEY AND URETER: No cysts identified. No solid masses. No calcified stones. No hydronephrosis or hydroureter. AORTA AND RETROPERITONEUM: No aneurysm. No retroperitoneal masses or adenopathy. BOWEL AND PERITONEAL CAVITY: Focal inflammatory changes in the upper sigmoid colon consistent with di verticulitis. There may be chronic fistulas existing near this region given the gas pattern branchin g through the adjacent mesentery to adjacent bowel loops. No fluid collection. APPENDIX: Normal. PELVIS, BLADDER, AND ABDOMINAL WALL:No abnormal masses. No free fluid. Unremarkable bladder. BONES: No acute findings. OTHER: No other significant finding. IMPRESSION: Focal inflammatory changes in the upper sigmoid colon consistent with diverticulitis. T here may be chronic fistulas existing near this region given the gas pattern branching through the ad jacent mesentery to adjacent bowel loops. TECHNICAL DOCUMENTATION: JOB ID: [id number] [place]-72 Quality ID # 436: Final reports with documentation of one or more dose reduction techniques (e.g., Au tomated exposure control, adjustment of the mA and/or kV according to patient size, use of iterative reconstruction technique) 2010 [employer]- All Rights Reserved Reading location - IP/workstation name: [email or web address]
--- NOTE | 2020-08-22 20:36 | ER Document Report ---
ED General - General Chief Complaint: Abdominal Pain Stated Complaint: LOWER ABDOMINAL PAIN Time Seen by Provider: 08/22/20 16:10 Primary Care Provider: INGRID HANSEN DO [Primary Care Provider] - Follow up as needed Mode of Arrival: Ambulatory TRAVEL OUTSIDE OF THE [place] IN LAST 30 DAYS: No - HPI Notes: 59-year-old male presents with abdominal pain. Patient states that for 1 week he has been having lower abdominal pain that radiates around both sides to his lower back. He saw his doctor last week due to not having any bowel movement, he took a pill which made him have a bowel movement, however after that he has had small bowel movements. However the pain has continued to persist. He states that he saw his professor of literature today and was told that given that he has pain for a week need to come to the emergency department. He states that he had a hernia surgery 2 months ago. States that he had some vomiting last Saturday, it has not occurred since. Patient also states that he has been having right-sided back pain, this pain also wraps around to the front. He denies dysuria. Denies fever. - Related Data Allergies/Adverse Reactions: No Known Allergies Allergy (Verified 07/27/20 16:29) Past Medical History - General Information source: Patient - Social History Smoking Status: Never Smoker Family History: Reviewed & Not Pertinent - Past Medical History Cardiac Medical History: Reports: Hx Hypertension Denies: Hx Coronary Artery Disease, Hx Heart Attack Pulmonary Medical History: Denies: Hx Asthma, Hx Bronchitis, Hx COPD, Hx Pneumonia Neurological Medical History: Denies: Hx Cerebrovascular Accident, Hx Seizures Renal/ Medical History: Denies: Hx Peritoneal Dialysis Musculoskeletal Medical History: Reports Hx Arthritis Past Surgical History: Reports: Hx Abdominal Surgery - hernia - Immunizations Hx Diphtheria, Pertussis, Tetanus Vaccination: No Review of Systems - Review of Systems Constitutional: denies: Fever EENT: No symptoms reported Cardiovascular: No symptoms reported Respiratory: No symptoms reported Gastrointestinal: Abdominal pain, Constipation Genitourinary: denies: Dysuria Musculoskeletal: No symptoms reported Skin: No symptoms reported Hematologic/Lymphatic: No symptoms reported Neurological/Psychological: No symptoms reported Physical Exam - Vital signs Vitals: Temp Pulse Resp BP Pulse Ox 99.6 F 90 18 151/59 H 97 08/22/20 15:51 08/22/20 15:51 08/22/20 15:51 08/22/20 15:51 08/22/20 15:51 - General General appearance: Appears well, Alert In distress: None - HEENT Head: Normocephalic, Atraumatic Conjunctiva: Normal Pupils: PERRL - Respiratory Breath sounds: Normal - Cardiovascular Rhythm: Regular Heart sounds: Normal auscultation - Abdominal Inspection: Other - Periumbilical incision, well-healed, no palpable hernia Distension: No distension Bowel sounds: Normal Tenderness: Nontender. No: Guarding, Rebound - Back Back: Tender - Right lower back near insertion of muscles to iliac crest. No: CVA tenderness, Vertebra tenderness - Extremities General upper extremity: Normal ROM General lower extremity: Normal ROM - Neurological Neuro grossly intact: Yes Cognition: Normal Orientation: AAOx4 - Psychological Associated symptoms: Normal affect - Skin Skin Temperature: Warm Course - Re-evaluation Re-evalutation: 59-year-old male here with lower abdominal pain x1 week, constipation as well. No blood in stools. On exam he is well-appearing, nontoxic, vital signs stable. He tolerates abdominal exam very well, he has no focal areas of tenderness, no signs of peritonitis. Additionally has some right lower back tenderness. He is neurologically intact. In terms of the back pain, suspecting musculoskeletal e tiology. Abdominal pain would be concerning for diverticulitis versus constipation versus much less likely obstruction given that he has been eating and drinking. As part of the triage process he had a CT abdomen performed which showed evidence of diverticulitis, no focal fluid collection seen. Leukocytosis present, likely reflecting acute diverticulitis status. No acute anemia. Electrolytes okay. Creatinine within normal limits. No elevation of T bili, LFTs or lipase. Urine does not suggest UTI. Patient was updated on these results via use of [employer] interpreting system. He was given a dose of Augmentin and prescribed a 7-day course. Also discussed continuing ibuprofen for back minor n. He is instructed to follow-up with gastroenterology, Dr. Lomax. Return precautions were given, patient stable at time of discharge. - Vital Signs Vital signs: Temp Pulse Resp BP Pulse Ox 98.1 F 73 15 146/66 H 98 08/22/20 20:41 08/22/20 20:41 08/22/20 20:41 08/22/20 20:41 08/22/20 20:41 - Laboratory Result Diagrams: 08/22/20 16:41 08/22/20 16:41 Laboratory results interpreted by me: 08/22/20 08/22/20 16:41 16:41 WBC 15.3 H Absolute Neuts (auto) 11.8 H Sodium 136.1 L Chloride 93 L Glucose 111 H - Diagnostic Test Radiology reviewed: Image reviewed, Reports reviewed Discharge - Discharge Clinical Impression: Sigmoid diverticulitis Condition: Stable Disposition: HOME, SELF-CARE Instructions: Diverticulitis ([facility]) Additional Instructions: Please begin a course of Augmentin for diverticulitis. Please have close f ollow-up with your professor of literature, Dr. Lomax. You may continue ibuprofen for abdominal and back pain. Please return to the emergency department for increasing pain, fever, inability to eat or drink, or any other concerning symptoms. Prescriptions: Amoxicillin/Potassium Clav [Augmentin 875-125 Tablet] 1 tab PO BID 7 Days #14 tab Ibuprofen [Motrin 800 mg Tablet] 800 mg PO Q8H PRN #60 tab PRN Reason: Referrals: INGRID HANSEN DO [Primary Care Provider] - Follow up as needed Print Language: Bermudian
[2020-08-22 20:41] VITALS: BP 146/66
[2020-08-22] MEDS ORDERED: AMOXICILLIN TR/POT CLAVULANATE 875-125 MG TAB PO ONE (20:50)
== END 2020-08-22 21:39 | disposition home or self-care (01) ==
LOC: ER 15:46
DX: K57.32 Diverticulitis of large intestine without perforation or abscess without bleeding (principal); R10.30 Lower abdominal pain, unspecified; M54.5 Low back pain; I10 Essential (primary) hypertension
CPT/HCPCS: 99285; 96372; 36415; 87086; 83690; 85025; 80053; 81001; 74176; J1885; J3490

== ENCOUNTER 2020-08-30 09:55 | Inpatient (IN) | payer MEDICAID ==
[2020-08-30] MEDS ORDERED: ONDANSETRON HCL INJ/PF 4 MG/2 ML SDV IV ONE (11:16)
[2020-08-30] MEDS ORDERED: NORMAL SALINE 1000 ML 1,000 ML IV ONE (11:16)
[2020-08-30] MEDS ORDERED: MORPHINE SULFATE 10 MG/ML INJ IV ONE ×2 (11:16→18:38)
[2020-08-30 12:14] LABS: APPEARANCE,URINE CLEAR; BILIRUBIN,URINE NEGATIVE (NEGATIVE); COLOR,URINE YELLOW; GLUCOSE, URINE NEGATIVE (NEGATIVE); KETONES,URINE NEGATIVE (NEGATIVE); LEUKOCYTE ESTERASE,URINE NEGATIVE (NEGATIVE); NITRITE,URINE NEGATIVE (NEGATIVE); PROTEIN,URINE NEGATIVE (NEGATIVE); URINE SPECIFIC GRAVITY 1.013; UROBILINOGEN,URINE NEGATIVE mg/dL (<2.0)
[2020-08-30 12:21] LABS: ABSOLUTE BASOPHILS # (AUTO) 0.1 10^3/uL (0.0-0.2); ABSOLUTE EOSINOPHILS # (AUTO) 0.1 10^3/uL (0.0-0.6); ABSOLUTE LYMPHOCYTES (AUTO) 1.8 10^3/uL (0.5-4.7); ABSOLUTE NEUT (AUTO) 10.5 10^3/uL (1.7-8.2); BASOPHILS % (AUTO) 0.9 % (0-2); EOSINOPHILS % (AUTO) 0.8 % (0-6); HEMATOCRIT 37.1 % (37.9-51.0); HEMOGLOBIN 12.4 g/dL (13.5-17.0); LYMPHOCYTES % (AUTO) 13.2 % (13-45); MEAN CORPUSCULAR HEMOGLOBIN 29.4 pg (27.0-33.4); MEAN CORPUSCULAR HGB CONC 33.6 g/dL (32.0-36.0); MEAN CORPUSCULAR VOLUME 88 fl (80-97); MONOCYTES % (AUTO) 7.2 % (3-13); PLATELET COUNT 417 10^3/uL (150-450); RED BLOOD COUNT 4.24 10^6/uL (4.35-5.55); RED CELL DISTRIBUTION WIDTH 12.8 % (11.5-14.0); SEGMENTED NEUTROPHILS % (AUTO) 77.9 % (42-78); TOTAL CELLS COUNTED % (AUTO) 100 %; WHITE BLOOD COUNT 13.5 10^3/uL (4.0-10.5)
[2020-08-30 12:40] LABS: ALBUMIN 3.9 g/dL (3.5-5.0); ALKALINE PHOSPHATASE 81 U/L (38-126); ANION GAP 11 (5-19); ASPARTATE AMINO TRANSFERASE 22 U/L (17-59); BILIRUBIN,DIRECT 0.3 mg/dL (0.0-0.4); BILIRUBIN,TOTAL 0.4 mg/dL (0.2-1.3); BLOOD UREA NITROGEN 7 mg/dL (7-20); CALCIUM 9.8 mg/dL (8.4-10.2); CARBON DIOXIDE 28 mmol/L (22-30); CHLORIDE 101 mmol/L (98-107); GLUCOSE 93 mg/dL (75-110); POTASSIUM 4.4 mmol/L (3.6-5.0); TOTAL PROTEIN 7.4 g/dL (6.3-8.2)
--- NOTE | 2020-08-30 14:29 | RADIOLOGY REPORT (SQ) ---
EXAM DESCRIPTION: CT ABD/PELVIS WITH IV ONLY IMAGES COMPLETED DATE/TIME: 08/30/2020 2:00 pm REASON FOR STUDY: LLQ/RLQ abd pain,dx with diverticulitis 08/22,worse COMPARISON: 08/22/2020 TECHNIQUE: CT scan of the abdomen and pelvis performed using helical scanning technique with dynamic intravenous contrast injection. No oral contrast. Images reviewed with lung, soft tissue, and bone windows. Reconstructed coronal and sagittal MPR images reviewed. Delayed images for evaluation of the urinary system also acquired. All images stored on PACS. All CT scanners at this facility use dose modulation, iterative reconstruction, and/or weight based d osing when appropriate to reduce radiation dose to as low as reasonably achievable (ALARA). [facility]: Dose Right [facility]: CareDose [facility]: Dose Right [facility]: Teradose 4D [facility]: [email or web address] CONTRAST TYPE AND DOSE: contrast/concentration: Isovue 350.00 mmol/ml; Total Contrast Delivered: 93. 0 ml; Total Saline Delivered: 71.0 ml RENAL FUNCTION: BUN 13 creatinine 0.78 RADIATION DOSE: CT Rad equipment meets quality standard of care and radiation dose reduction techniq ues were employed. CTDIvol: 6.6 - 9.4 mGy. DLP: 894 mGy-cm.. LIMITATIONS: None. FINDINGS: LOWER CHEST: No significant findings. No nodules or infiltrates. LIVER: Normal size. No masses. No dilated ducts. SPLEEN: Normal size. No focal lesions. PANCREAS: No masses. No significant calcifications. No adjacent inflammation or peripancreatic fluid collections. Pancreatic duct not dilated. GALLBLADDER: No identified stones by CT criteria. No inflammatory changes to suggest cholecystitis. ADRENAL GLANDS: No significant masses or asymmetry. RIGHT KIDNEY AND URETER: No solid masses. No significant calcifications. No hydronephrosis or hyd roureter. LEFT KIDNEY AND URETER: No solid masses. No significant calcifications. No hydronephrosis or hydr oureter. AORTA AND VESSELS: No aneurysm. No dissection. Renal arteries, SMA, celiac without stenosis. RETROPERITONEUM: No retroperitoneal adenopathy, hemorrhage or masses. BOWEL AND PERITONEAL CAVITY: Sigmoid diverticulitis. There is now an associated fluid collection gerardo suring 3 x 5 cm. There is no free fluid in the abdomen or pelvis. There is no free air. APPENDIX: Normal. PELVIS: No mass. No free fluid. Normal bladder. ABDOMINAL WALL: No masses. No hernias. BONES: No significant or acute findings. OTHER: No other significant finding. IMPRESSION: Sigmoid diverticulitis. There is now a 3 x 5 cm abscess. No free air or fluid in the p eritoneal cavity. TECHNICAL DOCUMENTATION: JOB ID: [id number] Quality ID # [id number]: Final reports with documentation of one or more dose reduction techniques (e.g., Au tomated exposure control, adjustment of the mA and/or kV according to patient size, use of iterative reconstruction technique) 2010 [employer]- All Rights Reserved Reading location - IP/workstation name: [email or web address]
--- NOTE | 2020-08-30 17:06 | ER Document Report ---
ED Medical Screen (RME) - General Chief Complaint: Abdominal Pain Stated Complaint: REVISIT/ABDOMINAL PAIN Time Seen by Provider: 08/30/20 11:07 Primary Care Provider: INGRID HANSEN DO [Primary Care Provider] - Follow up as needed TRAVEL OUTSIDE OF THE [place] IN LAST 30 DAYS: No - HPI Notes: 08/30/20 11:18 59 year old male who only speaks Turkmen presents today with complaints of LLQ and RLQ abdominal pain that has become progressively worse and seen on August 22, he was diagnosed with diverticulitis and placed on Augmentin. Patient states that he finished his Augmentin dose yesterday. He did follow-up with Dr. Truong, powder mill operator who advised him to continue taking medication. Denies any nausea or vomiting just reports severe pain, 5 out of 5. Reports pain is become progressively worse in the last 3 to 4 hours. Patient denies any melena. I have greeted and performed a rapid initial assessment of this patient. A comprehensive ED assessment and evaluation of the patient, analysis of test results and completion of the medical decision making process will be conducted by additional ED providers. PHYSICAL EXAMINATION: GENERAL: Well-appearing, well-nourished and in mild distress CV: s1, s2 regular LUNGS: No respiratory distress abd: LLQ, RLQ abd pain on palpation, no cva tenderness appreciated Musculoskeletal: Normal range of motion NEUROLOGICAL: Normal speech, normal gait. SKIN: Warm, Dry, normal turgor, no rashes or lesions noted. 08/30/20 11:19 - Related Data Allergies/Adverse Reactions: No Known Allergies Allergy (Verified 07/27/20 16:29) Past Medical History - Past Medical History Cardiac Medical History: Reports: Hx Hypertension Denies: Hx Coronary Artery Disease, Hx Heart Attack Pulmonary Medical History: Denies: Hx Asthma, Hx Bronchitis, Hx COPD, Hx Pneumonia Neurological Medical History: Denies: Hx Cerebrovascular Accident, Hx Seizures Renal/ Medical History: Denies: Hx Peritoneal Dialysis Musculoskeltal Medical History: Reports Hx Arthritis Past Surgical History: Reports: Hx Abdominal Surgery - hernia - Immunizations Hx Diphtheria, Pertussis, Tetanus Vaccination: No Physical Exam - Vital signs Vitals: Temp Pulse Resp BP Pulse Ox 98.8 F 79 16 133/61 H 98 08/30/20 10:19 08/30/20 10:19 08/30/20 10:19 08/30/20 10:19 08/30/20 10:19 Course - Vital Signs Vital signs: Temp Pulse Resp BP Pulse Ox 98.8 F 79 16 133/61 H 98 08/30/20 10:19 08/30/20 10:19 08/30/20 10:19 08/30/20 10:19 08/30/20 10:19 Doctor's Discharge - Discharge Referrals: INGRID HANSEN DO [Primary Care Provider] - Follow up as needed
[2020-08-30] MEDS ORDERED: METRONIDAZOLE 500 MG/NS RTU 500 MG/100 ML RTUPB IV ONE (17:26)
[2020-08-30] MEDS ORDERED: CIPROFLOXACIN 400 MG/D5W RTU 400 MG/200 ML RTUPB IV ONE (17:26)
--- NOTE | 2020-08-30 17:30 | ER Document Report ---
ED GI/ - General Chief Complaint: Abdominal Pain Stated Complaint: REVISIT/ABDOMINAL PAIN Time Seen by Provider: 08/30/20 11:07 Primary Care Provider: INGRID HANSEN DO [Primary Care Provider] - Follow up as needed Mode of Arrival: Ambulatory Information source: Patient Notes: 59-year-old male patient presents emergency department generalized right lower and left lower quadrant abdominal pain. Patient reports recently diagnosed with diverticulitis, completed a course of outpatient oral Augmentin. He followed up with GI. He states his pain is worsening. He denies any nausea, vomiting, fever or chills. He reports that the pain is severe. There are no alleviating or exacerbating factors. TRAVEL OUTSIDE OF THE [place] IN LAST 30 DAYS: No - Related Data Allergies/Adverse Reactions: No Known Allergies Allergy (Verified 08/30/20 17:47) Past Medical History - General Information source: Patient - Social History Smoking Status: Never Smoker Frequency of alcohol use: None Drug Abuse: None Family History: Reviewed & Not Pertinent - Past Medical History Cardiac Medical History: Reports: Hx Hypertension Musculoskeletal Medical History: Reports Hx Arthritis Past Surgical History: Reports: Hx Abdominal Surgery - hernia - Immunizations Hx Diphtheria, Pertussis, Tetanus Vaccination: No Physical Exam - Vital signs Vitals: Temp Pulse Resp BP Pulse Ox 98.8 F 79 16 133/61 H 98 08/30/20 10:19 08/30/20 10:19 08/30/20 10:19 08/30/20 10:19 08/30/20 10:19 Course - Re-evaluation Re-evalutation: Patient's CAT scan shows diverticulitis with abscess. Patient resting comfortably at this time. IV acetaminophen ordered for low-grade fever. Patient denies any needs. Patient reminded of n.p.o. status. 08/30/20 17:58 Spoke with lead hospitalist Dr. Meza. He discussed case briefly with Dr. Gallo. I was directed to call Dr Brown for admission. 08/30/20 18:[address] Brown who advises that this patient should be admitted to the general surgeon. 08/30/20 18:[address] Cortez. He states the best option for the patient would be drainage of the abscess by IR. I will attempt to call the workforce development assistant furnace combustion analyst. 08/30/20 18:28 Called and spoke to workforce development assistant furnace combustion analyst (Prosper), he is going to review the images and call me back. 08/30/20 18:45 Spoke with workforce development assistant Prosper Stokes he advises that after reviewing the images he feels they will be able to attempt to drain the abscess tomorrow. 08/30/20 18:50 Called and spoke with Dr. Cortez to update him on plan of care and my conversation with workforce development assistant. He advises that since the patient will likely not be a surgical patient that the best option for the patient would be hospitalist admit, surgical consult. 08/30/20 18:53 Called and spoke with lead hospitalist Dr. Meza, patient to be admitted to Dr. Gallo. 08/30/20 18:[address] Gallo - Vital Signs Vital signs: Temp Pulse Resp BP Pulse Ox 100.5 F H 75 12 149/59 H 97 08/30/20 17:42 08/30/20 17:42 08/30/20 17:42 08/30/20 17:42 08/30/20 17:42 - Laboratory Result Diagrams: 08/30/20 11:56 08/30/20 11:56 Laboratory results interpreted by me: 08/30/20 11:56 WBC 13.5 H RBC 4.24 L Hgb 12.4 L Hct 37.1 L Absolute Neuts (auto) 10.5 H Discharge - Discharge Clinical Impression: Diverticulitis of intestine with abscess Qualifiers: Diverticulitis site: unspecified part of intestinal tract Diverticulitis bleeding: unspecified bleeding status Qualified Code(s): K57.80 - Diverticulitis of intestine, part unspecified, with perforation and abscess without bleeding Condition: Stable Disposition: ADMITTED INPATIENT Admitting Provider: Sabino (Hospitalist) Unit Admitted: Medical Floor Referrals: INGRID HANSEN DO [Primary Care Provider] - Follow up as needed
[2020-08-30] MEDS ORDERED: ACETAMINOPHEN 1,000 MG/100 ML RTUPB IV ONE (17:42)
[2020-08-30] MEDS ORDERED: PROMETHAZINE HCL INJ 25 MG/1 ML VIAL IV PRN (19:46)
--- NOTE | 2020-08-30 20:03 | PDOC H&P ---
History of Present Illness Admission Date/PCP: INGRID HANSEN DO Patient complains of: Abdominal pain History of Present Illness: CONNIE ARAMBULA is a 59 year old male who failed outpatient treatment for diverticular disease. He received an outpatient course of Augmentin. Abdominal pain did not resolve. CT scan showed a 3 x 5 cm diverticular abscess. There is no perforation. The plan is for interventional radiology to drain the lesion tomorrow. The patient has a past medical history of hypertension, hypothyroidism and arthritis. He also has sleep apnea and his will be bringing his CPAP machine. He recently had a ventral hernia repair appro ximately 2 to 3 months ago and tolerated anesthesia without difficulty. The abdominal pain is unrelated to his previous surgery. Past Medical History Cardiac Medical History: Reports: Hypertension Denies: Coronary Artery Disease, Myocardial Infarction Pulmonary Medical History: Reports: Sleep Apnea Denies: Asthma, Bronchitis, Chronic Obstructive Pulmonary Disease (COPD), Pneumonia EENT Medical History: Denies: Ears, Nose, Throat Neurological Medical History: Denies: Ischemic CVA, Seizures Endocrine Medical History: Reports: Hypothyroidism Denies: Diabetes Mellitus Type 2 Renal/ Medical History: Denies: Chronic Kidney Disease Malignancy Medical History: Reports: None GI Medical History: Denies: Gastroesophageal Reflux Disease, Ulcerative Colitis Musculoskeltal Medical History: Reports: Arthritis Psychiatric Medical History: Denies: Alcohol Dependency, Substance Abuse, Tobacco Dependency Hematology: Denies: Anemia Infectious Medical History: Reports: None Past Surgical History Past Surgical History: Reports: Herniorrhaphy, Orthopedic Surgery - Right knee arthroplasty Social History Information Source: Patient - Via [facility], [facility] Records Lives with: Spouse/Significant other Smoking Status: Former Smoker Electronic Cigarette use?: No Frequency of Alcohol Use: Occasional Hx Recreational Drug Use: No Hx Prescription Drug Abuse: No - Advance Directive Resuscitation Status: Full Code Family History Family History: Malignancy, Other - Alzheimer's Parental Family History Reviewed: Yes Children Family History Reviewed: Yes Sibling(s) Family History Reviewed.: Yes Medication/Allergy Home Medications: Levothyroxine Sodium 50 mcg PO DAILY 07/02/17 Trazodone HCl 100 mg PO QHS 07/02/17 Gabapentin 300 mg PO TID 06/12/18 Ibuprofen 800 mg PO TID PRN 06/12/18 Lisinopril [Zestril] 20 mg PO DAILY #30 tablet 03/28/19 Ketorolac Tromethamine [Toradol 10 mg Tablet] 10 mg PO Q6HP PRN #14 tablet 06/15/20 Methocarbamol [Robaxin 750 mg Tablet] 750 mg PO Q6HP PRN #20 tablet 07/27/20 Amoxicillin/Potassium Clav [Augmentin 875-125 Tablet] 1 tab PO BID 7 Days #14 tab 08/22/20 Ibuprofen [Motrin 800 mg Tablet] 800 mg PO Q8H PRN #60 tab 08/22/20 Allergies/Adverse Reactions: No Known Allergies Allergy (Verified 08/30/20 17:47) Review of Systems All systems: reviewed and no additional remarkable complaints except as stated Constitutional: PRESENT: fever(s) Gastrointestinal: PRESENT: abdominal pain, constipation Physical Exam Vital Signs: Temp Pulse Resp BP Pulse Ox 100.5 F H 75 12 149/59 H 97 08/30/20 17:42 08/30/20 17:42 08/30/20 17:42 08/30/20 17:42 08/30/20 17:42 Intake & Output 08/29/20 08/30/20 08/31/20 06:59 06:59 06:59 Intake Total 1400 Balance 1400 Weight 80.739 kg General appearance: PRESENT: cooperative, mild distress, well-developed, well-nourished Head exam: PRESENT: atraumatic, normocephalic Eye exam: PRESENT: conjunctiva pink, EOMI. ABSENT: PERRLA, scleral icterus Ear exam: PRESENT: normal external ear exam. ABSENT: bleeding, drainage Mouth exam: PRESENT: dry mucosa, tongue midline Throat exam: ABSENT: post pharyngeal erythema, tonsillar erythema Neck exam: PRESENT: full ROM. ABSENT: carotid bruit, JVD, lymphadenopathy Respiratory exam: PRESENT: clear to auscultation krys, symmetrical, unlabored. ABSENT: prolonged expiratory phas, rales, rhonchi, tachypnea, wheezes Cardiovascular exam: PRESENT: RRR, +S1, +S2. ABSENT: bradycardia, diastolic murmur, irregular rhythm, systolic murmur, tachycardia GI/Abdominal exam: PRESENT: normal bowel sounds, soft, tenderness - Suprapubic area. ABSENT: distended, guarding Rectal exam: PRESENT: deferred Gentrourinary exam: ABSENT: indwelling catheter Extremities exam: ABSENT: calf tenderness, pedal edema Musculoskeletal exam: PRESENT: ambulatory, normal inspection. ABSENT: deformity, dislocation Neurological exam: PRESENT: alert, awake, oriented to person, oriented to place, oriented to time, oriented to situation, CN II-XII grossly intact. ABSENT: altered Psychiatric exam: PRESENT: appropriate affect. ABSENT: agitated, anxious Focused psych exam: ABSENT: delusional, paranoid, restlessness Skin exam: PRESENT: dry, normal color, warm. ABSENT: rash Results Laboratory Results: 08/30/20 11:56 08/30/20 11:56 08/30/20 08/30/20 08/30/20 11:39 11:56 11:56 WBC 13.5 H RBC 4.24 L Hgb 12.4 L Hct 37.1 L MCV 88 MCH 29.4 MCHC 33.6 RDW 12.8 Plt Count 417 Seg Neutrophils % 77.9 Sodium 139.9 Potassium 4.4 Chloride 101 Carbon Dioxide 28 Anion Gap 11 BUN 7 Creatinine 0.65 Est GFR ( Amer) > 60 Glucose 93 Calcium 9.8 Total Bilirubin 0.4 AST 22 Alkaline Phosphatase 81 Total Protein 7.4 Albumin 3.9 Lipase 48.0 Urine Color YELLOW Urine Appearance CLEAR Urine pH 5.0 Ur Specific [place] 1.013 Urine Protein NEGATIVE Urine Glucose (UA) NEGATIVE Urine Ketones NEGATIVE Urine Blood NEGATIVE Urine Nitrite NEGATIVE Ur Leukocyte Esterase NEGATIVE Urine WBC (Auto) 1 Impressions: Abdomen/Pelvis CT 08/30/20 11:13 IMPRESSION: Sigmoid diverticulitis. There is now a 3 x 5 cm abscess. No free air or fluid in the peritoneal cavity. Assessment and Plan - Diagnosis (1) Abdominal pain Qualifiers: Abdominal location: lower abdomen, unspecified Qualified Code(s): R10.30 - Lower abdominal pain, unspecified Is this a current diagnosis for this admission?: Yes Plan: Secondary to diverticular abscess. As needed analgesia. (2) Diverticulitis of intestine with abscess Qualifiers: Diverticulitis site: unspecified part of intestinal tract Diverticulitis bleeding: unspecified bleeding status Qualified Code(s): K57.80 - Diverticulitis of intestine, part unspecified, with perforation and abscess without bleeding Is this a current diagnosis for this admission?: Yes Plan: There is no perforation. Interventional radiology will be draining the abscess tomorrow. Culture has been ordered. Ciprofloxacin and metronidazole IV antibiotics have been ordered. (3) Hypothyroidism Qualifiers: Hypothyroidism type: unspecified Qualified Code(s): E03.9 - Hypothyroidism, unspecified Is this a current diagnosis for this admission?: Yes Plan: Continue 50 mcg levothyroxine daily (4) Hypertension Qualifiers: Hypertension type: essential hypertension Qualified Code(s): I10 - Essential (primary) hypertension Is this a current diagnosis for this admission?: Yes Plan: Monitor vital signs. Continue lisinopril. He is also on a water pill. His is bringing the exact medications to the hospital for medication reconciliation. (5) Obstructive sleep apnea Is this a current diagnosis for this admission?: Yes Plan: The patient's will be bringing his CPAP machine to the hospital. CPAP nightly. - Time Time Spent with patient: 35 or more minutes Medications reviewed and adjusted accordingly: Yes Anticipated Discharge Disposition: Home, Self Care Anticipated Discharge Timeframe: within 72 hours - Inpatient Certification Based on my medical assessment, after consideration of the patient's comorbidities, presenting symptoms, or acuity I expect that the services needed warrant INPATIENT care.: Yes I certify that my determination is in accordance with my understanding of Medicare's requirements for reasonable and necessary INPATIENT services [42 CFR 412.3e].: Yes Medical Necessity: Need For IV Fluids, Need for Pain Control, Need for IV Antibiotics Post Hospital Care: D/C or Transfer Summary
[2020-08-30] MEDS: RINGERS SOLUTION,LACTATED 1,000 ML IV PRN (20:29)
[2020-08-30 21:17] LABS: INTERNATIONAL RATION (INR) 1.02; PROTHROMBIN TIME 13.6 SEC (11.4-15.4)
--- NOTE | 2020-08-30 22:01 | PDOC CONSULTATION ---
Consultation Consult Date: 08/30/20 Attending physician:: FRANSISCO FERNÁNDEZ Provider Consulted: ADONIS MOYER Consult reason:: diverticulitis History of Present Illness Admission Date/PCP: 08/30/20 20:10 INGRID HANSEN DO History of Present Illness: CONNIE ARAMBULA is a 59 year old male6 patient presents emergency department generalized right lower and left lower quadrant abdominal pain. Patient reports recently diagnosed with diverticulitis, completed a course of outpatient oral Augmentin. He followed up with GI. He states his pain is worsening. He denies any nausea, vomiting, fever or chills. He reports that the pain is severe. There are no alleviating or exacerbating factors Past Medical History Cardiac Medical History: Reports: Hypertension Denies: Coronary Artery Disease, Myocardial Infarction Pulmonary Medical History: Reports: Sleep Apnea Denies: Asthma, Bronchitis, Chronic Obstructive Pulmonary Disease (COPD), Pneumonia EENT Medical History: Denies: Ears, Nose, Throat Neurological Medical History: Denies: Ischemic CVA, Seizures Endocrine Medical History: Reports: Hypothyroidism Denies: Diabetes Mellitus Type 2 Renal/ Medical History: Denies: Chronic Kidney Disease Malignancy Medical History: Reports: None GI Medical History: Denies: Gastroesophageal Reflux Disease, Ulcerative Colitis Musculoskeltal Medical History: Reports: Arthritis Psychiatric Medical History: Denies: Alcohol Dependency, Substance Abuse, Tobacco Dependency Hematology: Denies: Anemia Infectious Medical History: Reports: None Past Surgical History Past Surgical History: Reports: Herniorrhaphy, Orthopedic Surgery - Right knee arthroplasty Social History Lives with: Spouse/Significant other Smoking Status: Never Smoker Electronic Cigarette use?: No Frequency of Alcohol Use: Occasional Hx Recreational Drug Use: No Hx Prescription Drug Abuse: No - Advance Directive Resuscitation Status: Full Code Family History Family History: Reviewed & Not Pertinent Parental Family History Reviewed: No Children Family History Reviewed: NA Sibling(s) Family History Reviewed.: NA Medication/Allergy Home Medications: Levothyroxine Sodium 50 mcg PO Q6AM 07/02/17 Trazodone HCl 150 mg PO HSP PRN 07/02/17 Dexlansoprazole [Dexilant 60 mg Capsule] 60 mg PO DAILY 08/30/20 Fluticasone Propionate [Flonase Nasal [place] 50 Mcg/[place] 16 gm] 2 spray NASL QHS 08/30/20 Gabapentin [Neurontin] 800 mg PO Q8 08/30/20 Hydrochlorothiazide [Hydrodiuril 12.5 mg Tablet] 12.5 mg PO DAILY 08/30/20 Ibuprofen [Motrin 800 mg Tablet] 800 mg PO Q8HP PRN 08/30/20 Lisinopril [Zestril] 10 mg PO DAILY 08/30/20 Lubiprostone [Amitiza 24 Mcg Capsule] 24 mcg PO BID 08/30/20 Tizanidine HCl [Zanaflex 4 mg Tablet] 4 mg PO Q8HP PRN 08/30/20 Allergies/Adverse Reactions: No Known Allergies Allergy (Verified 08/30/20 17:47) Physical Exam Vital Signs: Temp Pulse Resp BP Pulse Ox 100.5 F H 75 12 149/59 H 97 08/30/20 17:42 08/30/20 17:42 08/30/20 17:42 08/30/20 17:42 08/30/20 17:42 Intake & Output 08/29/20 08/30/20 08/31/20 06:59 06:59 06:59 Intake Total 1400 Balance 1400 Weight 80.739 kg General appearance: PRESENT: no acute distress Head exam: PRESENT: normocephalic Eye exam: PRESENT: EOMI Ear exam: PRESENT: normal external ear exam Mouth exam: PRESENT: moist Teeth exam: PRESENT: poor dentation Neck exam: PRESENT: full ROM Respiratory exam: PRESENT: clear to auscultation krys Cardiovascular exam: PRESENT: RRR Pulses: PRESENT: normal radial pulses, normal femoral pulses Vascular exam: PRESENT: normal capillary refill Breast: PRESENT: Normal GI/Abdominal exam: PRESENT: tenderness - lower abd to deep palpation, no rebound Rectal exam: PRESENT: deferred Extremities exam: PRESENT: full ROM Musculoskeletal exam: PRESENT: full ROM Neurological exam: PRESENT: alert, awake, oriented to person, oriented to place Psychiatric exam: PRESENT: appropriate affect Skin exam: PRESENT: dry Results Laboratory Results: 08/30/20 11:56 08/30/20 11:56 08/30/20 08/30/20 08/30/20 11:39 11:56 11:56 WBC 13.5 H RBC 4.24 L Hgb 12.4 L Hct 37.1 L MCV 88 MCH 29.4 MCHC 33.6 RDW 12.8 Plt Count 417 Seg Neutrophils % 77.9 Sodium 139.9 Potassium 4.4 Chloride 101 Carbon Dioxide 28 Anion Gap 11 BUN 7 Creatinine 0.65 Est GFR ( Amer) > 60 Glucose 93 Calcium 9.8 Total Bilirubin 0.4 AST 22 Alkaline Phosphatase 81 Total Protein 7.4 Albumin 3.9 Lipase 48.0 Urine Color YELLOW Urine Appearance CLEAR Urine pH 5.0 Ur Specific [place] 1.013 Urine Protein NEGATIVE Urine Glucose (UA) NEGATIVE Urine Ketones NEGATIVE Urine Blood NEGATIVE Urine Nitrite NEGATIVE Ur Leukocyte Esterase NEGATIVE Urine WBC (Auto) 1 Impressions: Abdomen/Pelvis CT 08/30/20 11:13 IMPRESSION: Sigmoid diverticulitis. There is now a 3 x 5 cm abscess. No free air or fluid in the peritoneal cavity. Assessment & Plan - Plan Summary Plan Summary: impression perforated diverticulitis with abcess approx 4-6 cm diameter spoke with radilogy who will attempt perc drain in am no obvious obstructin or sepsis at this pt Necessitating emergency surgery. surgery will follow agree with antibiotic coverage.
[2020-08-30] MEDS: TRAZODONE HCL 50 MG TABLET PO SCH (22:33)
[2020-08-30] MEDS: HEPARIN SOD (PORCINE) 5,000 UNIT/ML 1 ML VIAL SUBCUT SCH (22:34)
[2020-08-31] MEDS: METRONIDAZOLE 500 MG/NS RTU 500 MG/100 ML RTUPB IV SCH ×4 (01:05→18:02)
[2020-08-31] MEDS: HEPARIN SOD (PORCINE) 5,000 UNIT/ML 1 ML VIAL SUBCUT SCH ×3 (06:03→21:53)
[2020-08-31] MEDS: LEVOTHYROXINE SODIUM 0.05 MG TABLET PO SCH (06:04)
[2020-08-31] MEDS: MORPHINE SULFATE 10 MG/ML INJ IV PRN ×3 (06:20→18:51)
[2020-08-31] MEDS: ACETAMINOPHEN 325 MG TABLET PO PRN ×2 (06:21→10:53)
--- NOTE | 2020-08-31 08:55 | PDOC PROGRESS REPORT ---
Subjective Progress Note for:: 08/31/20 Subjective:: The patient is resting comfortably. Awaiting percutaneous drainage of diverticular abscess. He is still having some pain but it appears reasonably controlled with the ordered medications. He currently is n.p.o. for the procedure. Reason For Visit: DIVERTICULITIS OF INTESTINE WITH ABSCESS Physical Exam Vital Signs: Temp Pulse Resp BP Pulse Ox 100.8 F H 79 16 139/112 H 100 08/31/20 06:25 08/31/20 06:25 08/31/20 06:25 08/31/20 06:25 08/31/20 06:25 Intake & Output 08/30/20 08/31/20 09/01/20 06:59 06:59 06:59 Intake Total 2500 100 Balance 2500 100 Weight 80.739 kg General appearance: PRESENT: no acute distress, cooperative, well-developed, well-nourished Head exam: PRESENT: atraumatic, normocephalic Eye exam: PRESENT: conjunctiva pink. ABSENT: scleral icterus Ear exam: PRESENT: normal external ear exam. ABSENT: bleeding, drainage Mouth exam: PRESENT: moist, tongue midline Neck exam: ABSENT: carotid bruit, JVD, lymphadenopathy, tracheostomy Respiratory exam: PRESENT: clear to auscultation krys, symmetrical, unlabored. ABSENT: prolonged expiratory phas, rales, rhonchi, tachypnea, wheezes Cardiovascular exam: PRESENT: RRR, +S1, +S2, systolic murmur - 2/6. ABSENT: bradycardia, diastolic murmur, irregular rhythm, tachycardia GI/Abdominal exam: PRESENT: normal bowel sounds, soft, tenderness - Still tenderness in the lower abdomen. ABSENT: distended, guarding Rectal exam: PRESENT: deferred Gentrourinary exam: ABSENT: indwelling catheter Extremities exam: ABSENT: pedal edema, tenderness Musculoskeletal exam: PRESENT: ambulatory, full ROM, normal inspection. ABSENT: deformity, dislocation Neurological exam: PRESENT: alert, awake, oriented to person, oriented to place, oriented to time, oriented to situation, CN II-XII grossly intact. ABSENT: altered, motor sensory deficit Psychiatric exam: PRESENT: appropriate affect. ABSENT: agitated, anxious Focused psych exam: ABSENT: delusional, paranoid, restlessness Skin exam: PRESENT: dry, normal color, warm. ABSENT: rash Results Laboratory Results: 08/30/20 11:56 08/30/20 11:56 08/30/20 08/30/20 08/30/20 11:39 11:56 11:56 WBC 13.5 H RBC 4.24 L Hgb 12.4 L Hct 37.1 L MCV 88 MCH 29.4 MCHC 33.6 RDW 12.8 Plt Count 417 Seg Neutrophils % 77.9 Sodium 139.9 Potassium 4.4 Chloride 101 Carbon Dioxide 28 Anion Gap 11 BUN 7 Creatinine 0.65 Est GFR ( Amer) > 60 Glucose 93 Calcium 9.8 Total Bilirubin 0.4 AST 22 Alkaline Phosphatase 81 Total Protein 7.4 Albumin 3.9 Lipase 48.0 Urine Color YELLOW Urine Appearance CLEAR Urine pH 5.0 Ur Specific Emmet 1.013 Urine Protein NEGATIVE Urine Glucose (UA) NEGATIVE Urine Ketones NEGATIVE Urine Blood NEGATIVE Urine Nitrite NEGATIVE Ur Leukocyte Esterase NEGATIVE Urine WBC (Auto) 1 Impressions: Abdomen/Pelvis CT 08/30/20 11:13 IMPRESSION: Sigmoid diverticulitis. There is now a 3 x 5 cm abscess. No free air or fluid in the peritoneal cavity. Assessment and Plan - Diagnosis (1) Abdominal pain Qualifiers: Abdominal location: lower abdomen, unspecified Qualified Code(s): R10.30 - Lower abdominal pain, unspecified Is this a current diagnosis for this admission?: Yes Plan: Secondary to diverticular abscess. As needed analgesia. 08/31/2020-continue analgesia. (2) Diverticulitis of intestine with abscess Qualifiers: Diverticulitis site: unspecified part of intestinal tract Diverticulitis bleeding: unspecified bleeding status Qualified Code(s): K57.80 - Diverticulitis of intestine, part unspecified, with perforation and abscess without bleeding Is this a current diagnosis for this admission?: Yes Plan: There is no perforation. Interventional radiology will be draining the abscess tomorrow. Culture has been ordered. Ciprofloxacin and metronidazole IV antibiotics have been ordered. 08/31/2020-scheduled for interventional radiology percutaneous drain this helen cintronMitzy (3) Hypothyroidism Qualifiers: Hypothyroidism type: unspecified Qualified Code(s): E03.9 - Hypothyroidism, unspecified Is this a current diagnosis for this admission?: Yes Plan: Continue 50 mcg levothyroxine daily (4) Hypertension Qualifiers: Hypertension type: essential hypertension Qualified Code(s): I10 - Essential (primary) hypertension Is this a current diagnosis for this admission?: Yes Plan: Monitor vital signs. Continue lisinopril. He is also on a water pill. His is bringing the exact medications to the hospital for medication reconciliation. 09/10/2020-the patient's brought his medications. His usual dose at home is lisinopril 10 mg daily as well as hydrochlorothiazide 12.5 mg daily. We will adjust his regimen and monitor vital signs. (5) Obstructive sleep apnea Is this a current diagnosis for this admission?: Yes Plan: The patient's will be bringing his CPAP machine to the hospital. CPAP nightly. 08/31/2020-the patient has his own CPAP machine. CPAP nightly. (6) Chronic constipation Is this a current diagnosis for this admission?: Yes Plan: 08/31/2020-continue lubiprostone (7) Gastroesophageal reflux Qualifiers: Esophagitis presence: without esophagitis Qualified Code(s): K21.9 - Gastro-esophageal reflux disease without esophagitis Is this a current diagnosis for this admission?: Yes Plan: 08/31/2020-continue Dexilant - Time Time Spent with patient: 15-24 minutes Medications reviewed and adjusted accordingly: Yes Anticipated Discharge Disposition: Home, Self Care Anticipated Discharge Timeframe: within 72 hours
[2020-08-31] MEDS ORDERED: HYDRALAZINE HCL INJ/PF 20 MG/1 ML SDV IV PRN (09:14)
[2020-08-31] MEDS: LISINOPRIL 10 MG TABLET PO SCH (09:32)
[2020-08-31] MEDS: CIPROFLOXACIN 400 MG/D5W RTU 400 MG/200 ML RTUPB IV SCH ×2 (09:32→21:53)
[2020-08-31] MEDS ORDERED: FENTANYL CITRATE INJ/PF 100 MCG/2 ML AMPUL ONE (11:09)
[2020-08-31] MEDS ORDERED: MIDAZOLAM 2 MG/2 ML INJ ONE (11:09)
--- NOTE | 2020-08-31 12:44 | RADIOLOGY REPORT (SQ) ---
EXAM DESCRIPTION: CT GUIDED PERCUT DRAIN W/CATH IMAGES COMPLETED DATE/TIME: 08/31/2020 12:07 pm REASON FOR STUDY: Diverticular abscess COMPARISON: CT dated 08/30/2020 FLUORO TIME: 18.0 seconds 126 images saved to PACS. LIMITATIONS: None. PROCEDURE: After obtaining informed consent, the patient was brought to the CT suite and was placed supine on the CT gurney. The patient was prepped and draped in the usual sterile fashion . Axial osmin ges were obtained for targeting of theupper pelvic abscess. An appropriate access site was selected. IV conscious sedation was administered and physician direction by the registered nurse using 1.0 mil ligrams of Versed and 100 micrograms of fentanyl. Physiologic monitoring was provided before, during, and after sedation. The total sedation time was 30 minutes. Documentation face to face time, the performing proceduralist, spent monitoring the patient: 30minute s. Pre planning CT images were obtained. Site was chosen for access. Skin was sterilely prepped and dr aped. 1% lidocaine was used for local anesthesia. Fluoroscopic images revealed a decrease in size o f the fluid collection. The abscess has presumably partially drained into the adjacent colon. Using 18 gauge access needle the collection was cannulated. Purulent fluid was aspirated. Attempts at pl acing a glidewire were unsuccessful despite multiple attempts. Ultimately approximately 50 mL of pur ulent fluid was aspirated. This was sent to the lab for evaluation. Follow-up images revealed persi stent collection measuring approximately 1.9 x 4.1 cm. IMPRESSION: The focal pelvic abscess was aspirated as discussed. A guidewire could not be placed to allow percutaneous drainage placement. Continued IV antibiotics are recommended and follow-up CT a s clinically indicated. COMMENT: Patient medication list reviewed:Yes- Quality ID# [id number]:Eligible professional attests to docu menting in the medical record they obtained, updated, or reviewed the patient's current medications. Quality ID #76: The patient was prepped and draped using maximum sterile barrier technique including cap, mask, sterile gown, sterile gloves, a large sterile sheet, hand hygiene, and 2% Chlorhexidine fo r cutaneous antisepsis. When ultrasound is used, sterile ultrasound techniques are followed requiring sterile gel and sterile probes. Quality ID 145: Final reports for procedures using fluoroscopy that document radiation exposure kate maryann, or exposure time and number of fluorographic images (if radiation exposure indices are not avail able) Quality ID# [id number]: Final reports with documentation of one or more dose reduction techniques (e.g., Aut omated exposure control, adjustment of the mA and/or kV according to patient size, use of iterative r econstruction technique) TECHNICAL DOCUMENTATION: JOB ID: [id number] 2010 [employer]- All Rights Reserved rev Reading location - IP/workstation name: [email or web address]
[2020-08-31] MEDS: TRAZODONE HCL 50 MG TABLET PO SCH (21:53)
--- NOTE | 2020-08-31 22:16 | PDOC PROGRESS REPORT ---
Subjective Progress Note for:: 08/31/20 Subjective:: 59-year-old male with complicated diverticulitis. The patient underwent CT- guided aspiration today, however no percutaneous drain could be placed. The patient spoke to me through an medical interpreter. The patient reports continued abdominal pain, but he reports that it is tolerable with medications. He denies any fevers or chills. He reports that he has not had a bowel movement in 3 days. He denies chest pain or shortness of breath. He also denies nausea or vomiting. Reason For Visit: DIVERTICULITIS OF INTESTINE WITH ABSCESS Physical Exam Vital Signs: Temp Pulse Resp BP Pulse Ox 98.5 F 78 18 143/62 H 95 08/31/20 20:10 08/31/20 20:10 08/31/20 20:10 08/31/20 20:10 08/31/20 20:10 Intake & Output 08/30/20 08/31/20 09/01/20 06:59 06:59 06:59 Intake Total 2500 775 Balance 2500 775 Weight 80.739 kg 83.7 kg General appearance: PRESENT: no acute distress, cooperative Head exam: PRESENT: atraumatic, normocephalic Eye exam: PRESENT: EOMI, PERRLA. ABSENT: scleral icterus Mouth exam: PRESENT: moist, neck supple Neck exam: ABSENT: meningismus, tenderness, thyromegaly, tracheal deviation Respiratory exam: PRESENT: unlabored. ABSENT: tachypnea, wheezes Cardiovascular exam: ABSENT: tachycardia GI/Abdominal exam: PRESENT: soft, tenderness - Lower midline. ABSENT: distended, rebound, rigid Rectal exam: PRESENT: deferred Extremities exam: ABSENT: clubbing Musculoskeletal exam: ABSENT: deformity Neurological exam: PRESENT: alert, awake, oriented to person, oriented to place, CN II-XII grossly intact Psychiatric exam: ABSENT: agitated, anxious, depressed Focused psych exam: ABSENT: delusional Skin exam: ABSENT: cyanosis, erythema, jaundice Results Laboratory Results: 08/30/20 11:56 08/30/20 11:56 Impressions: Abdomen/Pelvis CT 08/30/20 11:13 IMPRESSION: Sigmoid diverticulitis. There is now a 3 x 5 cm abscess. No free air or fluid in the peritoneal cavity. Percutaneous Drainage 08/31/20 11:00 IMPRESSION: The focal pelvic abscess was aspirated as discussed. A guidewire could not be placed to allow percutaneous drainage placement. Continued IV antibiotics are recommended and follow-up CT as clinically indicated. Assessment & Plan - Diagnosis (1) Diverticulitis of intestine with abscess Qualifiers: Diverticulitis site: unspecified part of intestinal tract Diverticulitis bleeding: unspecified bleeding status Qualified Code(s): K57.80 - Diverticulitis of intestine, part unspecified, with perforation and abscess without bleeding Is this a current diagnosis for this admission?: Yes - Time Anticipated Discharge Disposition: unknown Anticipated Discharge Timeframe: unknown - Plan Summary Plan Summary: 59-year-old male with complicated diverticulitis. He underwent CT-guided aspiration of the abscess. Approximately 50 mL's of purulent material was removed. A drain could not be left due to an inability to pass a guidewire. I would recommend continuation of antibiotics at this time, with repeat CT scan in 48 to [address] scan is worse (or he develops clinical instability), he may require surgical intervention. Surgery will continue to follow closely with you.
[2020-09-01] MEDS: METRONIDAZOLE 500 MG/NS RTU 500 MG/100 ML RTUPB IV SCH ×4 (00:39→17:46)
[2020-09-01] MEDS: RINGERS SOLUTION,LACTATED 1,000 ML IV PRN (00:39)
[2020-09-01] MEDS: MORPHINE SULFATE 10 MG/ML INJ IV PRN ×4 (00:39→17:49)
[2020-09-01] MEDS: PANTOPRAZOLE SODIUM 40 MG TABLET.DR PO SCH (05:50)
[2020-09-01] MEDS: HEPARIN SOD (PORCINE) 5,000 UNIT/ML 1 ML VIAL SUBCUT SCH ×3 (05:50→21:41)
[2020-09-01] MEDS: LEVOTHYROXINE SODIUM 0.05 MG TABLET PO SCH (05:50)
[2020-09-01 07:49] LABS: ABSOLUTE BASOPHILS # (AUTO) 0.1 10^3/uL (0.0-0.2); ABSOLUTE EOSINOPHILS # (AUTO) 0.1 10^3/uL (0.0-0.6); ABSOLUTE LYMPHOCYTES (AUTO) 2.1 10^3/uL (0.5-4.7); ABSOLUTE MONOCYTES (AUTO) 0.9 10^3/uL (0.1-1.4); ABSOLUTE NEUT (AUTO) 7.8 10^3/uL (1.7-8.2); BASOPHILS % (AUTO) 0.9 % (0-2); HEMOGLOBIN 10.9 g/dL (13.5-17.0); LYMPHOCYTES % (AUTO) 19.2 % (13-45); MEAN CORPUSCULAR HEMOGLOBIN 29.2 pg (27.0-33.4); MEAN CORPUSCULAR HGB CONC 34.1 g/dL (32.0-36.0); MEAN CORPUSCULAR VOLUME 86 fl (80-97); MONOCYTES % (AUTO) 8.1 % (3-13); PLATELET COUNT 348 10^3/uL (150-450); RED BLOOD COUNT 3.73 10^6/uL (4.35-5.55); SEGMENTED NEUTROPHILS % (AUTO) 70.8 % (42-78); TOTAL CELLS COUNTED % (AUTO) 100 %; WHITE BLOOD COUNT 11.1 10^3/uL (4.0-10.5)
[2020-09-01] MEDS: CIPROFLOXACIN 400 MG/D5W RTU 400 MG/200 ML RTUPB IV SCH ×2 (09:30→21:41)
[2020-09-01] MEDS: LISINOPRIL 10 MG TABLET PO SCH (09:30)
[2020-09-01] MEDS: HYDROCHLOROTHIAZIDE 12.5 MG TABLET PO SCH (09:30)
--- NOTE | 2020-09-01 15:00 | PDOC PROGRESS REPORT ---
Subjective Progress Note for:: 09/01/20 Subjective:: The patient is complaining of abdominal pain but it appears to be related to constipation. He said he has not been able to move his bowels. Thus far the abscess aspiration is growing gram-negative bacilli. It is most likely going to be a coliform bacteria. Reason For Visit: DIVERTICULITIS OF INTESTINE WITH ABSCESS Physical Exam Vital Signs: Temp Pulse Resp BP Pulse Ox 97.9 F 65 16 136/66 H 96 09/01/20 10:56 09/01/20 10:56 09/01/20 10:56 09/01/20 10:56 09/01/20 10:56 Intake & Output 08/31/20 09/01/20 09/02/20 06:59 06:59 06:59 Intake Total 2500 1275 1560 Balance 2500 1275 1560 Weight 80.739 kg 83.9 kg General appearance: PRESENT: no acute distress, cooperative, well-developed, well-nourished Head exam: PRESENT: atraumatic, normocephalic Eye exam: PRESENT: conjunctiva pink. ABSENT: scleral icterus Ear exam: PRESENT: normal external ear exam. ABSENT: bleeding, drainage Mouth exam: PRESENT: moist, tongue midline Respiratory exam: PRESENT: rales - Very faint rales left base, symmetrical, unlabored. ABSENT: rhonchi, tachypnea, wheezes Cardiovascular exam: PRESENT: RRR, +S1, +S2 GI/Abdominal exam: PRESENT: hypoactive bowel sounds, soft, tenderness - Mild tenderness left lower quadrant. ABSENT: distended, guarding Rectal exam: PRESENT: deferred Gentrourinary exam: ABSENT: indwelling catheter Extremities exam: ABSENT: pedal edema Musculoskeletal exam: PRESENT: ambulatory, normal inspection. ABSENT: deformity, dislocation Neurological exam: PRESENT: alert, awake, oriented to person, oriented to place, oriented to time, oriented to situation, CN II-XII grossly intact. ABSENT: altered Psychiatric exam: PRESENT: appropriate affect. ABSENT: agitated, anxious Focused psych exam: ABSENT: delusional, paranoid, restlessness Skin exam: PRESENT: dry, normal color, warm. ABSENT: rash Results Laboratory Results: 09/01/20 07:06 08/30/20 11:56 09/01/20 07:06 WBC 11.1 H RBC 3.73 L Hgb 10.9 L Hct 32.0 L MCV 86 MCH 29.2 MCHC 34.1 RDW 13.0 Plt Count 348 Seg Neutrophils % 70.8 Impressions: Abdomen/Pelvis CT 08/30/20 11:13 IMPRESSION: Sigmoid diverticulitis. There is now a 3 x 5 cm abscess. No free air or fluid in the peritoneal cavity. Percutaneous Drainage 08/31/20 11:00 IMPRESSION: The focal pelvic abscess was aspirated as discussed. A guidewire could not be placed to allow percutaneous drainage placement. Continued IV antibiotics are recommended and follow-up CT as clinically indicated. Assessment and Plan - Diagnosis (1) Abdominal pain Qualifiers: Abdominal location: lower abdomen, unspecified Qualified Code(s): R10.30 - Lower abdominal pain, unspecified Is this a current diagnosis for this admission?: Yes Plan: Secondary to diverticular abscess. As needed analgesia. 08/31/2020-continue analgesia. 09/01/2020-underwent IR drainage. Still with some pain but reasonably controlled. (2) Diverticulitis of intestine with abscess Qualifiers: Diverticulitis site: unspecified part of intestinal tract Diverticulitis bleeding: unspecified bleeding status Qualified Code(s): K57.80 - Diverticulitis of intestine, part unspecified, with perforation and abscess without bleeding Is this a current diagnosis for this admission?: Yes Plan: There is no perforation. Interventional radiology will be draining the abscess tomorrow. Culture has been ordered. Ciprofloxacin and metronidazole IV antibiotics have been ordered. 08/31/2020-scheduled for interventional radiology percutaneous drain this morning. 09/01/[id number]-ybgd-lofedoaw bacilli growing. Continue current antibiotic therapy until final ID and sensitivities available. (3) Hypothyroidism Qualifiers: Hypothyroidism type: unspecified Qualified Code(s): E03.9 - Hypothyroidism, unspecified Is this a current diagnosis for this admission?: Yes Plan: Continue 50 mcg levothyroxine daily 09/01/2020-continue levothyroxine (4) Hypertension Qualifiers: Hypertension type: essential hypertension Qualified Code(s): I10 - Essential (primary) hypertension Is this a current diagnosis for this admission?: Yes Plan: Monitor vital signs. Continue lisinopril. He is also on a water pill. His is bringing the exact medications to the hospital for medication reconciliation. 09/10/2020-the patient's brought his medications. His usual dose at home is lisinopril 10 mg daily as well as hydrochlorothiazide 12.5 mg daily. We will adjust his regimen and monitor vital signs. 09/01/2020-reasonable blood pressure control. No changes in medication regimen at this time. (5) Obstructive sleep apnea Is this a current diagnosis for this admission?: Yes Plan: The patient's will be bringing his CPAP machine to the hospital. CPAP nightly. 08/31/2020-the patient has his own CPAP machine. CPAP nightly. 09/01/2020-continue use of patient's CPAP. (6) Chronic constipation Is this a current diagnosis for this admission?: Yes Plan: 08/31/2020-continue lubiprostone 09/01/2020-in addition to lubiprostone I have added MiraLAX. A mineral oil enema was ordered as well. Adjust regimen based on bowel function. (7) Gastroesophageal reflux Qualifiers: Esophagitis presence: without esophagitis Qualified Code(s): K21.9 - Gastro-esophageal reflux disease without esophagitis Is this a current diagnosis for this admission?: Yes Plan: 08/31/2020-continue Dexilant 09/01/2020-Dexilant is not on formulary. Substitute pantoprazole for this hospitalization. - Time Time Spent with patient: 15-24 minutes Medications reviewed and adjusted accordingly: Yes Anticipated Discharge Disposition: Home, Self Care Anticipated Discharge Timeframe: within 72 hours
[2020-09-01] MEDS ORDERED: MINERAL OIL ENEMA 133 ML PR ONE (16:00)
[2020-09-01] MEDS: LUBIPROSTONE 24 MCG CAPSULE PO SCH (17:48)
--- NOTE | 2020-09-01 17:54 | PDOC PROGRESS REPORT ---
Subjective Progress Note for:: 09/01/20 Subjective:: Less abdominal pains today compared to prior to drainage or aspiration of diverticular abscess yesterday. Denies nausea or vomiting. No flatus yet. Reason For Visit: DIVERTICULITIS OF INTESTINE WITH ABSCESS Physical Exam Vital Signs: Temp Pulse Resp BP Pulse Ox 97.9 F 65 16 136/66 H 96 09/01/20 10:56 09/01/20 10:56 09/01/20 10:56 09/01/20 10:56 09/01/20 10:56 Intake & Output 08/31/20 09/01/20 09/02/20 06:59 06:59 06:59 Intake Total 2500 1275 1560 Balance 2500 1275 1560 Weight 80.739 kg 83.9 kg Exam: Abdomen is soft with mild tenderness in the left and right lower quadrant areas. Results Laboratory Results: 09/01/20 07:06 08/30/20 11:56 09/01/20 07:06 WBC 11.1 H RBC 3.73 L Hgb 10.9 L Hct 32.0 L MCV 86 MCH 29.2 MCHC 34.1 RDW 13.0 Plt Count 348 Seg Neutrophils % 70.8 Impressions: Abdomen/Pelvis CT 08/30/20 11:13 IMPRESSION: Sigmoid diverticulitis. There is now a 3 x 5 cm abscess. No free air or fluid in the peritoneal cavity. Percutaneous Drainage 08/31/20 11:00 IMPRESSION: The focal pelvic abscess was aspirated as discussed. A guidewire could not be placed to allow percutaneous drainage placement. Continued IV antibiotics are recommended and follow-up CT as clinically indicated. Assessment & Plan - Diagnosis (1) Diverticulitis of intestine with abscess Qualifiers: Diverticulitis site: unspecified part of intestinal tract Diverticulitis bleeding: unspecified bleeding status Qualified Code(s): K57.80 - Diverticulitis of intestine, part unspecified, with perforation and abscess without bleeding Is this a current diagnosis for this admission?: Yes - Time Critical Time spent with patient: 15-24 minutes Anticipated Discharge Disposition: Home, Self Care Anticipated Discharge Timeframe: within 72 hours - Inpatient Certification Medical Necessity: Need For IV Fluids, Need for Pain Control, Need for IV Antibiotics - Plan Summary Plan Summary: 59-year-old male with diverticular abscess which was aspirated yesterday by IR. Initial Gram stain showed gram-positive and gram-negative rods. Has not had any flatus yet today. But his abdomen is less tender today compared to yesterday. Plans: Continue with IV antibiotics Start liquid diet as soon as passed flatus hopefully by tomorrow.
[2020-09-01] MEDS: LACTULOSE SYRUP 20 GM/30 ML UDCUP PO SCH (21:41)
[2020-09-01] MEDS: TRAZODONE HCL 50 MG TABLET PO SCH (21:41)
[2020-09-02] MEDS: METRONIDAZOLE 500 MG/NS RTU 500 MG/100 ML RTUPB IV SCH ×2 (00:14→05:40)
[2020-09-02] MEDS: MORPHINE SULFATE 10 MG/ML INJ IV PRN ×5 (00:17→22:25)
[2020-09-02 05:15] LABS: ABSOLUTE BASOPHILS # (AUTO) 0.1 10^3/uL (0.0-0.2); ABSOLUTE EOSINOPHILS # (AUTO) 0.2 10^3/uL (0.0-0.6); ABSOLUTE LYMPHOCYTES (AUTO) 2.1 10^3/uL (0.5-4.7); ABSOLUTE MONOCYTES (AUTO) 0.8 10^3/uL (0.1-1.4); BASOPHILS % (AUTO) 1.5 % (0-2); EOSINOPHILS % (AUTO) 1.7 % (0-6); HEMATOCRIT 30.5 % (37.9-51.0); HEMOGLOBIN 10.6 g/dL (13.5-17.0); LYMPHOCYTES % (AUTO) 22.7 % (13-45); MEAN CORPUSCULAR HEMOGLOBIN 29.7 pg (27.0-33.4); MEAN CORPUSCULAR HGB CONC 34.7 g/dL (32.0-36.0); MEAN CORPUSCULAR VOLUME 86 fl (80-97); MONOCYTES % (AUTO) 8.3 % (3-13); PLATELET COUNT 351 10^3/uL (150-450); RED BLOOD COUNT 3.56 10^6/uL (4.35-5.55); RED CELL DISTRIBUTION WIDTH 13.1 % (11.5-14.0); SEGMENTED NEUTROPHILS % (AUTO) 65.8 % (42-78); TOTAL CELLS COUNTED % (AUTO) 100 %; WHITE BLOOD COUNT 9.1 10^3/uL (4.0-10.5)
[2020-09-02 05:21] LABS: ANION GAP 8 (5-19); BLOOD UREA NITROGEN 5 mg/dL (7-20); CALCIUM 8.9 mg/dL (8.4-10.2); CARBON DIOXIDE 29 mmol/L (22-30); CHLORIDE 100 mmol/L (98-107); GLUCOSE 95 mg/dL (75-110)
[2020-09-02] MEDS: LEVOTHYROXINE SODIUM 0.05 MG TABLET PO SCH (05:40)
[2020-09-02] MEDS: HEPARIN SOD (PORCINE) 5,000 UNIT/ML 1 ML VIAL SUBCUT SCH ×3 (05:40→22:33)
[2020-09-02] MEDS: PANTOPRAZOLE SODIUM 40 MG TABLET.DR PO SCH (05:40)
[2020-09-02] MEDS: LACTULOSE SYRUP 20 GM/30 ML UDCUP PO SCH (05:40)
[2020-09-02] MEDS: LISINOPRIL 10 MG TABLET PO SCH (09:17)
[2020-09-02] MEDS: LUBIPROSTONE 24 MCG CAPSULE PO SCH ×2 (09:18→18:26)
[2020-09-02] MEDS: HYDROCHLOROTHIAZIDE 12.5 MG TABLET PO SCH (09:18)
--- NOTE | 2020-09-02 10:56 | PDOC PROGRESS REPORT ---
Subjective Progress Note for:: 09/02/20 Subjective:: The patient is awaiting CT scan. We are going to reassess the abscess. He has been up walking. His pain is reasonably controlled. He has been having some bowel movements. Reason For Visit: DIVERTICULITIS OF INTESTINE WITH ABSCESS Physical Exam Vital Signs: Temp Pulse Resp BP Pulse Ox 98.1 F 91 18 144/63 H 95 09/02/20 08:11 09/02/20 08:00 09/02/20 08:00 09/02/20 08:00 09/02/20 08:00 Intake & Output 09/01/20 09/02/20 09/03/20 06:59 06:59 06:59 Intake Total 1275 2640 Balance 1275 2640 Weight 83.9 kg 83.2 kg General appearance: PRESENT: no acute distress, cooperative, well-developed, well-nourished Head exam: PRESENT: atraumatic, normocephalic Eye exam: PRESENT: conjunctiva pink. ABSENT: scleral icterus Ear exam: PRESENT: normal external ear exam. ABSENT: bleeding, drainage Mouth exam: PRESENT: moist, tongue midline Neck exam: ABSENT: carotid bruit, JVD, lymphadenopathy, tracheostomy Respiratory exam: PRESENT: clear to auscultation krys, symmetrical, unlabored. ABSENT: prolonged expiratory phas, rales, rhonchi, tachypnea, wheezes Cardiovascular exam: PRESENT: RRR, +S1, +S2. ABSENT: bradycardia, diastolic murmur, irregular rhythm, systolic murmur, tachycardia GI/Abdominal exam: PRESENT: normal bowel sounds, soft, tenderness. ABSENT: distended, guarding Rectal exam: PRESENT: deferred Gentrourinary exam: ABSENT: indwelling catheter Extremities exam: ABSENT: pedal edema Musculoskeletal exam: PRESENT: ambulatory, normal inspection. ABSENT: deformity, dislocation Neurological exam: PRESENT: alert, awake, oriented to person, oriented to place, oriented to time, oriented to situation, CN II-XII grossly intact. ABSENT: altered, motor sensory deficit Psychiatric exam: PRESENT: appropriate affect. ABSENT: agitated, anxious Focused psych exam: ABSENT: delusional, paranoid, restlessness Skin exam: PRESENT: dry, normal color, warm. ABSENT: rash Results Laboratory Results: 09/02/20 04:08 09/02/20 04:08 09/02/20 09/02/20 04:08 04:08 WBC 9.1 RBC 3.56 L Hgb 10.6 L Hct 30.5 L MCV 86 MCH 29.7 MCHC 34.7 RDW 13.1 Plt Count 351 Seg Neutrophils % 65.8 Sodium 137.4 Potassium 4.0 Chloride 100 Carbon Dioxide 29 Anion Gap 8 BUN 5 L Creatinine 0.61 Est GFR ( Amer) > 60 Glucose 95 Calcium 8.9 Impressions: Abdomen/Pelvis CT 08/30/20 11:13 IMPRESSION: Sigmoid diverticulitis. There is now a 3 x 5 cm abscess. No free air or fluid in the peritoneal cavity. Percutaneous Drainage 08/31/20 11:00 IMPRESSION: The focal pelvic abscess was aspirated as discussed. A guidewire could not be placed to allow percutaneous drainage placement. Continued IV antibiotics are recommended and follow-up CT as clinically indicated. Assessment and Plan - Diagnosis (1) Abdominal pain Qualifiers: Abdominal location: lower abdomen, unspecified Qualified Code(s): R10.30 - Lower abdominal pain, unspecified Is this a current diagnosis for this admission?: Yes Plan: Secondary to diverticular abscess. As needed analgesia. 08/31/2020-continue analgesia. 09/01/2020-underwent IR drainage. Still with some pain but reasonably controlled. 09/02/2020-reasonably controlled. Continue current regimen. (2) Diverticulitis of intestine with abscess Qualifiers: Diverticulitis site: unspecified part of intestinal tract Diverticulitis bleeding: unspecified bleeding status Qualified Code(s): K57.80 - Diverticulitis of intestine, part unspecified, with perforation and abscess without bleeding Is this a current diagnosis for this admission?: Yes Plan: There is no perforation. Interventional radiology will be draining the abscess tomorrow. Culture has been ordered. Ciprofloxacin and metronidazole IV antibiotics have been ordered. 08/31/2020-scheduled for interventional radiology percutaneous drain this morning. 09/01/[id number] bacilli growing. Continue current antibiotic therapy until final ID and sensitivities available. 09/02/2020-2 different strains of E. coli as well as possible enterococcus identified. This is consistent with normal bowel kim. 1 of the E. coli strains was resistant to ciprofloxacin. I have consolidated his antibiotics to Unasyn. This will cover both strains of E. coli and should cover the majority of the enterococcus isolates. (3) Hypothyroidism Qualifiers: Hypothyroidism type: unspecified Qualified Code(s): E03.9 - Hypothyroidism, unspecified Is this a current diagnosis for this admission?: Yes Plan: Continue 50 mcg levothyroxine daily 09/01/2020-continue levothyroxine (4) Hypertension Qualifiers: Hypertension type: essential hypertension Qualified Code(s): I10 - Essential (primary) hypertension Is this a current diagnosis for this admission?: Yes Plan: Monitor vital signs. Continue lisinopril. He is also on a water pill. His is bringing the exact medications to the hospital for medication reconciliation. 09/10/2020-the patient's brought his medications. His usual dose at home is lisinopril 10 mg daily as well as hydrochlorothiazide 12.5 mg daily. We will adjust his regimen and monitor vital signs. 09/01/2020-reasonable blood pressure control. No changes in medication regimen at this time. 09/02/2020-continue to monitor vital signs. Currently no need to adjust medications. (5) Obstructive sleep apnea Is this a current diagnosis for this admission?: Yes Plan: The patient's will be bringing his CPAP machine to the hospital. CPAP nightly. 08/31/2020-the patient has his own CPAP machine. CPAP nightly. 09/01/2020-continue use of patient's CPAP. (6) Chronic constipation Is this a current diagnosis for this admission?: Yes Plan: 08/31/2020-continue lubiprostone 09/01/2020-in addition to lubiprostone I have added MiraLAX. A mineral oil enema was ordered as well. Adjust regimen based on bowel function. 09/02/2020-through an wildlife enforcement major yasemin my impression was that the patient was not having bowel movements. Nursing states that he is passing loose stool. He is currently n.p.o. for his CT scan. Surgery recommended back to clear liquids at this time. Lactulose in addition to the lubiprostone currently in place. Will decrease doses based on bowel movements. (7) Gastroesophageal reflux Qualifiers: Esophagitis presence: without esophagitis Qualified Code(s): K21.9 - Gastro-esophageal reflux disease without esophagitis Is this a current diagnosis for this admission?: Yes Plan: 08/31/2020-continue Dexilant 09/01/2020-Dexilant is not on formulary. Substitute pantoprazole for this hospitalization. 09/02/2020-pantoprazole seems to be effective at this time. - Time Time Spent with patient: Less than 15 minutes Medications reviewed and adjusted accordingly: Yes Anticipated Discharge Disposition: Home, Self Care Anticipated Discharge Timeframe: within 72 hours
--- NOTE | 2020-09-02 11:37 | RADIOLOGY REPORT (SQ) ---
EXAM DESCRIPTION: CT ABD/PELVIS WITH IV ONLY IMAGES COMPLETED DATE/TIME: 09/02/2020 11:19 am REASON FOR STUDY: Follow-up diverticular abscess COMPARISON: 08/30/2020 TECHNIQUE: CT scan of the abdomen and pelvis performed using helical scanning technique with dynamic intravenous contrast injection. No oral contrast. Images reviewed with lung, soft tissue, and bone windows. Reconstructed coronal and sagittal MPR images reviewed. Delayed images for evaluation of the urinary system also acquired. All images stored on PACS. All CT scanners at this facility use dose modulation, iterative reconstruction, and/or weight based d osing when appropriate to reduce radiation dose to as low as reasonably achievable (ALARA). [facility]: Dose Right [facility]: CareDose [facility]: Dose Right [facility]: Teradose 4D [facility]: Lab42 CONTRAST TYPE AND DOSE: contrast/concentration: Isovue 350.00 mmol/ml; Total Contrast Delivered: 95. 0 ml; Total Saline Delivered: 66.0 ml RENAL FUNCTION: BUN 5 creatinine 0.61 RADIATION DOSE: CT Rad equipment meets quality standard of care and radiation dose reduction techniq ues were employed. CTDIvol: 14.9 - 16.8 mGy. DLP: 1657 mGy-cm.. LIMITATIONS: None. FINDINGS: LOWER CHEST: Small right pleural effusion with dependent atelectasis in the right lower lo be. LIVER: Normal size. No masses. No dilated ducts. SPLEEN: Normal size. No focal lesions. PANCREAS: No masses. No significant calcifications. No adjacent inflammation or peripancreatic fluid collections. Pancreatic duct not dilated. GALLBLADDER: No identified stones by CT criteria. No inflammatory changes to suggest cholecystitis. ADRENAL GLANDS: No significant masses or asymmetry. RIGHT KIDNEY AND URETER: No solid masses. No significant calcifications. No hydronephrosis or hyd roureter. LEFT KIDNEY AND URETER: No solid masses. No significant calcifications. No hydronephrosis or hydr oureter. AORTA AND VESSELS: No aneurysm. No dissection. Renal arteries, SMA, celiac without stenosis. RETROPERITONEUM: No retroperitoneal adenopathy, hemorrhage or masses. BOWEL AND PERITONEAL CAVITY: Once again sigmoid diverticulitis is noted. There is residual 20.7 x 45 .2 mm abscess seen best on image 64 series 2. APPENDIX: Normal. PELVIS: No mass. No free fluid. Normal bladder. ABDOMINAL WALL: No masses. No hernias. BONES: No significant or acute findings. OTHER: No other significant finding. IMPRESSION: There is a the residual 20.7 x 45.2 mm abscess associated with sigmoid diverticulitis. Small right pleural effusion. TECHNICAL DOCUMENTATION: JOB ID: [id number] Quality ID # [id number]: Final reports with documentation of one or more dose reduction techniques (e.g., Au tomated exposure control, adjustment of the mA and/or kV according to patient size, use of iterative reconstruction technique) 2010 [employer]- All Rights Reserved Reading location - IP/workstation name: [email or web address]
--- NOTE | 2020-09-02 11:40 | PDOC PROGRESS REPORT ---
Subjective Progress Note for:: 09/02/20 Subjective:: Feels okay still has a small amount of lower abdominal suprapubic pain Ate regular food for breakfast passing some stool flatus Reason For Visit: DIVERTICULITIS OF INTESTINE WITH ABSCESS Physical Exam Vital Signs: Temp Pulse Resp BP Pulse Ox 98.1 F 91 18 144/63 H 95 09/02/20 08:11 09/02/20 08:00 09/02/20 08:00 09/02/20 08:00 09/02/20 08:00 Intake & Output 09/01/20 09/02/20 09/03/20 06:59 06:59 06:59 Intake Total 1275 2640 Balance 1275 2640 Weight 83.9 kg 83.2 kg General appearance: PRESENT: no acute distress, severe distress Head exam: PRESENT: normocephalic Eye exam: PRESENT: EOMI Ear exam: PRESENT: normal external ear exam Mouth exam: PRESENT: moist Neck exam: PRESENT: full ROM Respiratory exam: PRESENT: clear to auscultation krys Cardiovascular exam: PRESENT: RRR Pulses: PRESENT: normal radial pulses, normal femoral pulses Vascular exam: PRESENT: normal capillary refill Breast: PRESENT: Normal GI/Abdominal exam: PRESENT: soft, tenderness - Suprapubic tenderness however no evidence of peritonitis. Rectal exam: PRESENT: deferred Extremities exam: PRESENT: full ROM Musculoskeletal exam: PRESENT: full ROM Neurological exam: PRESENT: alert, awake, oriented to person, oriented to place Psychiatric exam: PRESENT: appropriate affect Skin exam: PRESENT: dry Results Laboratory Results: 09/02/20 04:08 09/02/20 04:08 09/02/20 09/02/20 04:08 04:08 WBC 9.1 RBC 3.56 L Hgb 10.6 L Hct 30.5 L MCV 86 MCH 29.7 MCHC 34.7 RDW 13.1 Plt Count 351 Seg Neutrophils % 65.8 Sodium 137.4 Potassium 4.0 Chloride 100 Carbon Dioxide 29 Anion Gap 8 BUN 5 L Creatinine 0.61 Est GFR ( Amer) > 60 Glucose 95 Calcium 8.9 Impressions: Percutaneous Drainage 08/31/20 11:00 IMPRESSION: The focal pelvic abscess was aspirated as discussed. A guidewire could not be placed to allow percutaneous drainage placement. Continued IV antibiotics are recommended and follow-up CT as clinically indicated. Abdomen/Pelvis CT 09/02/20 09:00 IMPRESSION: There is a the residual 20.7 x 45.2 mm abscess associated with sigmoid diverticulitis. Small right pleural effusion. Assessment & Plan - Time Anticipated Discharge Disposition: Home, Self Care Anticipated Discharge Timeframe: unk - Plan Summary Plan Summary: Impression complicated sigmoid diverticulitis perforated with abscess status post IR drainage without indwelling drain. Patient is doing somewhat better still with suprapubic tenderness is now passing bowel movements ate a regular diet this morning. White blood count normalized. Plan on repeat CT scan today to assess abscess. Would continue IV antibiotics for now. Awaiting results of CT scan
[2020-09-02] MEDS: AMPICILLIN SODIUM/SULBACTAM NA 3 GM in NORMAL SALINE 100 ML IV SCH ×3 (13:00→23:24)
[2020-09-02] MEDS ORDERED: PROMETHAZINE HCL INJ 25 MG/1 ML VIAL IV PRN (15:00)
[2020-09-02] MEDS ORDERED: LACTULOSE SYRUP 20 GM/30 ML UDCUP PO SCH (22:00)
[2020-09-02] MEDS: TRAZODONE HCL 50 MG TABLET PO SCH (22:26)
[2020-09-03] MEDS: HEPARIN SOD (PORCINE) 5,000 UNIT/ML 1 ML VIAL SUBCUT SCH ×3 (05:12→21:49)
[2020-09-03] MEDS: AMPICILLIN SODIUM/SULBACTAM NA 3 GM in NORMAL SALINE 100 ML IV SCH ×4 (05:12→23:43)
[2020-09-03] MEDS: LEVOTHYROXINE SODIUM 0.05 MG TABLET PO SCH (05:13)
[2020-09-03] MEDS: RINGERS SOLUTION,LACTATED 1,000 ML IV PRN ×2 (05:13→18:13)
[2020-09-03] MEDS: PANTOPRAZOLE SODIUM 40 MG TABLET.DR PO SCH (05:13)
[2020-09-03] MEDS: HYDROCHLOROTHIAZIDE 12.5 MG TABLET PO SCH (08:15)
--- NOTE | 2020-09-03 10:04 | PDOC PROGRESS REPORT ---
Subjective Progress Note for:: 09/03/20 Subjective:: Still with pains along the left lower quadrant about 2/5 in intensity. He had a bowel movement and passed flatus yesterday but none today. However he is tolerating clear liquids for now. Reason For Visit: DIVERTICULITIS OF INTESTINE WITH ABSCESS Physical Exam Vital Signs: Temp Pulse Resp BP Pulse Ox 98.3 F 64 16 140/61 H 94 09/03/20 07:32 09/03/20 07:32 09/03/20 07:32 09/03/20 07:32 09/03/20 07:32 Intake & Output 09/02/20 09/03/20 09/04/20 06:59 06:59 06:59 Intake Total 2640 1305 Output Total 250 Balance 2640 1055 Weight 83.2 kg 81.3 kg Exam: Abdomen is soft with mild tenderness in the left lower quadrant more towards pubic area Results Laboratory Results: 09/02/20 04:08 09/02/20 04:08 Impressions: Percutaneous Drainage 08/31/20 11:00 IMPRESSION: The focal pelvic abscess was aspirated as discussed. A guidewire could not be placed to allow percutaneous drainage placement. Continued IV antibiotics are recommended and follow-up CT as clinically indicated. Abdomen/Pelvis CT 09/02/20 09:00 IMPRESSION: There is a the residual 20.7 x 45.2 mm abscess associated with sigmoid diverticulitis. Small right pleural effusion. Assessment & Plan - Diagnosis (1) Diverticulitis of intestine with abscess Qualifiers: Diverticulitis site: unspecified part of intestinal tract Diverticulitis bleeding: unspecified bleeding status Qualified Code(s): K57.80 - Div erticulitis of intestine, part unspecified, with perforation and abscess without bleeding Is this a current diagnosis for this admission?: Yes - Time Anticipated Discharge Disposition: Home, Self Care Anticipated Discharge Timeframe: 1 week - Inpatient Certification Medical Necessity: Need Close Monitoring Due to Risk of Patient Decompensation, Need For IV Fluids, Need for IV Antibiotics - Plan Summary Plan Summary: 59-year-old male but initial CAT scan with aspiration of diverticular abscess 08/31/2019. Yesterday underwent repeat CT scan which showed residual abscess which is just about 1 cm smaller than the original site of about 5 cm. Patient. Patient is afebrile with a normal white count and tolerating clear liquids. Recommendations: 1 continue with clear liquids today. 2. Continue with IV antibiotics and hydration. 3. Will need re-CT scan in 2 days for possible placement of drainage catheter by IR if the abscess remains the same or bigger. 4. If patient deteriorates over the weekend and will need a emergency exploratory laparotomy with possible placement of colostomy.
[2020-09-03] MEDS: LISINOPRIL 10 MG TABLET PO SCH (10:25)
[2020-09-03] MEDS: LUBIPROSTONE 24 MCG CAPSULE PO SCH ×2 (10:25→18:12)
[2020-09-03] MEDS: MORPHINE SULFATE 10 MG/ML INJ IV PRN ×3 (10:31→21:52)
--- NOTE | 2020-09-03 11:56 | PDOC PROGRESS REPORT ---
Subjective Progress Note for:: 09/03/20 Subjective:: Resting comfortably. Current pain medication regimen is effective. Once again communication at this visit was done through a phone yasemin newsagent which is worked extremely well. Reason For Visit: DIVERTICULITIS OF INTESTINE WITH ABSCESS Physical Exam Vital Signs: Temp Pulse Resp BP Pulse Ox 98.3 F 64 16 140/61 H 94 09/03/20 10:00 09/03/20 07:32 09/03/20 07:32 09/03/20 07:32 09/03/20 07:32 Intake & Output 09/02/20 09/03/20 09/04/20 06:59 06:59 06:59 Intake Total 2640 1305 Output Total 250 Balance 2640 1055 Weight 83.2 kg 81.3 kg General appearance: PRESENT: cooperative, mild distress, well-developed Head exam: PRESENT: atraumatic, normocephalic Respiratory exam: PRESENT: clear to auscultation krys, symmetrical, unlabored. ABSENT: rales, rhonchi, tachypnea, wheezes Cardiovascular exam: PRESENT: RRR, +S1, +S2. ABSENT: diastolic murmur, irregular rhythm, systolic murmur, tachycardia GI/Abdominal exam: PRESENT: normal bowel sounds, soft, tenderness - Lower abdomen. ABSENT: distended, guarding Rectal exam: PRESENT: deferred Gentrourinary exam: ABSENT: indwelling catheter Extremities exam: PRESENT: full ROM. ABSENT: joint swelling, pedal edema Musculoskeletal exam: PRESENT: ambulatory, normal inspection. ABSENT: deformity, dislocation Neurological exam: PRESENT: alert, awake, oriented to person, oriented to place, oriented to time, oriented to situation, CN II-XII grossly intact. ABSENT: altered Psychiatric exam: PRESENT: appropriate affect, normal mood. ABSENT: agitated, anxious Focused psych exam: ABSENT: delusional, paranoid, restlessness Skin exam: PRESENT: dry, normal color, warm. ABSENT: rash Results Laboratory Results: 09/02/20 04:08 09/02/20 04:08 Impressions: Percutaneous Drainage 08/31/20 11:00 IMPRESSION: The focal pelvic abscess was aspirated as discussed. A guidewire could not be placed to allow percutaneous drainage placement. Continued IV antibiotics are recommended and follow-up CT as clinically indicated. Abdomen/Pelvis CT 09/02/20 09:00 IMPRESSION: There is a the residual 20.7 x 45.2 mm abscess associated with sigmoid diverticulitis. Small right pleural effusion. Assessment and Plan - Diagnosis (1) Abdominal pain Qualifiers: Abdominal location: lower abdomen, unspecified Qualified Code(s): R10.30 - Lower abdominal pain, unspecified Is this a current diagnosis for this admission?: Yes Plan: Secondary to diverticular abscess. As needed analgesia. 08/31/2020-continue analgesia. 09/01/2020-underwent IR drainage. Still with some pain but reasonably controlled. 09/02/2020-reasonably controlled. Continue current regimen. 09/03/2020-continue current pain management regimen. (2) Diverticulitis of intestine with abscess Qualifiers: Diverticulitis site: unspecified part of intestinal tract Diverticulitis bleeding: unspecified bleeding status Qualified Code(s): K57.80 - Di verticulitis of intestine, part unspecified, with perforation and abscess without bleeding Is this a current diagnosis for this admission?: Yes Plan: There is no perforation. Interventional radiology will be draining the abscess tomorrow. Culture has been ordered. Ciprofloxacin and metronidazole IV antibiotics have been ordered. 08/31/2020-scheduled for interventional radiology percutaneous drain this morning. 09/01/[id number] bacilli growing. Continue current antibiotic therapy until final ID and sensitivities available. 09/02/2020-2 different strains of E. coli as well as possible enterococcus identified. This is consistent with normal bowel kim. 1 of the E. coli strains was resistant to ciprofloxacin. I have consolidated his antibiotics to Unasyn. This will cover both strains of E. coli and should cover the majority of the enterococcus isolates. 09/03/2020-CT scan from yesterday shows that the abscess is slightly bigger than when it was first drained. Surgery recommends repeating the CT scan in 48 hours. If the abscess is once again larger than previously the options would be to have interventional radiology place a drain in the lesion. They are unable to do this during the initial procedure. Or the patient would need surgery. Continue current antibiotic regimen. (3) Hypothyroidism Qualifiers: Hypothyroidism type: unspecified Qualified Code(s): E03.9 - Hypothyroidism, unspecified Is this a current diagnosis for this admission?: Yes Plan: Continue 50 mcg levothyroxine daily 09/01/2020-continue levothyroxine (4) Hypertension Qualifiers: Hypertension type: essential hypertension Qualified Code(s): I10 - Essential (primary) hypertension Is this a current diagnosis for this admission?: Yes Plan: Monitor vital signs. Continue lisinopril. He is also on a water pill. His is bringing the exact medications to the hospital for medication reconciliation. 09/10/2020-the patient's brought his medications. His usual dose at home is lisinopril 10 mg daily as well as hydrochlorothiazide 12.5 mg daily. We will adjust his regimen and monitor vital signs. 09/01/2020-reasonable blood pressure control. No changes in medication regimen at this time. 09/02/2020-continue to monitor vital signs. Currently no need to adjust medica tions. 09/03/2020-continue to monitor vital signs. No need to adjust medications at this time. Fluctuations in blood pressure could be related to episodes of discomfort. (5) Obstructive sleep apnea Is this a current diagnosis for this admission?: Yes Plan: The patient's will be bringing his CPAP machine to the hospital. CPAP nightly. 08/31/2020-the patient has his own CPAP machine. CPAP nightly. 09/01/2020-continue use of patient's CPAP. 09/03/2020-CPAP machine is at the bedside. The patient uses his CPAP machine ni ghtly. (6) Chronic constipation Is this a current diagnosis for this admission?: Yes Plan: 08/31/2020-continue lubiprostone 09/01/2020-in addition to lubiprostone I have added MiraLAX. A mineral oil enema was ordered as well. Adjust regimen based on bowel function. 09/02/2020-through an lead php developer yasemin my impression was that the patient was not having bowel movements. Nursing states that he is passing loose stool. He is currently n.p.o. for his CT scan. Surgery recommended back to clear liquids at this time. Lactulose in addition to the lubiprostone currently in place. Will decrease doses based on bowel movements. 09/03/2020-patient remains on clear liquids. He did have a bowel movement yesterday. Continue lactulose and lubiprostone. (7) Gastroesophageal reflux Qualifiers: Esophagitis presence: without esophagitis Qualified Code(s): K21.9 - Gastro-esophageal reflux disease without esophagitis Is this a current diagnosis for this admission?: Yes Plan: 08/31/2020-continue Dexilant 09/01/2020-Dexilant is not on formulary. Substitute pantoprazole for this hospitalization. 09/02/2020-pantoprazole seems to be effective at this time. 09/03/2020-continue pantoprazole. - Time Time Spent with patient: Less than 15 minutes Medications reviewed and adjusted accordingly: Yes Anticipated Discharge Disposition: Home, Self Care Anticipated Discharge Timeframe: Unknown
[2020-09-03] MEDS: TRAZODONE HCL 50 MG TABLET PO SCH (21:49)
[2020-09-04] MEDS: HEPARIN SOD (PORCINE) 5,000 UNIT/ML 1 ML VIAL SUBCUT SCH ×3 (05:13→21:19)
[2020-09-04] MEDS: LEVOTHYROXINE SODIUM 0.05 MG TABLET PO SCH (05:21)
[2020-09-04] MEDS: AMPICILLIN SODIUM/SULBACTAM NA 3 GM in NORMAL SALINE 100 ML IV SCH ×4 (05:21→23:19)
[2020-09-04] MEDS: PANTOPRAZOLE SODIUM 40 MG TABLET.DR PO SCH (05:21)
[2020-09-04 05:24] LABS: ABSOLUTE BASOPHILS # (AUTO) 0.1 10^3/uL (0.0-0.2); ABSOLUTE EOSINOPHILS # (AUTO) 0.1 10^3/uL (0.0-0.6); ABSOLUTE LYMPHOCYTES (AUTO) 2.4 10^3/uL (0.5-4.7); ABSOLUTE MONOCYTES (AUTO) 0.8 10^3/uL (0.1-1.4); BASOPHILS % (AUTO) 0.9 % (0-2); EOSINOPHILS % (AUTO) 1.4 % (0-6); HEMATOCRIT 33.9 % (37.9-51.0); HEMOGLOBIN 11.7 g/dL (13.5-17.0); LYMPHOCYTES % (AUTO) 22.7 % (13-45); MEAN CORPUSCULAR HEMOGLOBIN 29.7 pg (27.0-33.4); MEAN CORPUSCULAR HGB CONC 34.5 g/dL (32.0-36.0); MEAN CORPUSCULAR VOLUME 86 fl (80-97); MONOCYTES % (AUTO) 7.5 % (3-13); PLATELET COUNT 409 10^3/uL (150-450); RED BLOOD COUNT 3.93 10^6/uL (4.35-5.55); RED CELL DISTRIBUTION WIDTH 13.1 % (11.5-14.0); SEGMENTED NEUTROPHILS % (AUTO) 67.5 % (42-78); TOTAL CELLS COUNTED % (AUTO) 100 %; WHITE BLOOD COUNT 10.4 10^3/uL (4.0-10.5)
[2020-09-04] MEDS: MORPHINE SULFATE 10 MG/ML INJ IV PRN ×4 (05:26→23:24)
[2020-09-04 05:55] LABS: ANION GAP 9 (5-19); BLOOD UREA NITROGEN 5 mg/dL (7-20); CALCIUM 9.2 mg/dL (8.4-10.2); CARBON DIOXIDE 29 mmol/L (22-30); CHLORIDE 101 mmol/L (98-107); GLUCOSE 87 mg/dL (75-110); POTASSIUM 4.5 mmol/L (3.6-5.0)
[2020-09-04] MEDS: HYDROCHLOROTHIAZIDE 12.5 MG TABLET PO SCH (07:31)
[2020-09-04] MEDS: LUBIPROSTONE 24 MCG CAPSULE PO SCH ×2 (09:15→17:42)
[2020-09-04] MEDS: LISINOPRIL 10 MG TABLET PO SCH (09:15)
--- NOTE | 2020-09-04 10:08 | PDOC PROGRESS REPORT ---
Subjective Progress Note for:: 09/04/20 Subjective:: The patient is anxious to go home. I explained that we need to get a CAT scan tomorrow and if the abscess is getting bigger then we need to put a drain in it. I will wait till surgery sees the patient. Trying to coordinate the imaging with the procedure might be difficult as an outpatient. He is also complaining of increased gas pain. Reason For Visit: DIVERTICULITIS OF INTESTINE WITH ABSCESS Physical Exam Vital Signs: Temp Pulse Resp BP Pulse Ox 98.1 F 57 L 12 155/66 H 97 09/04/20 08:56 09/04/20 07:29 09/04/20 07:29 09/04/20 07:29 09/04/20 07:29 Intake & Output 09/03/20 09/04/20 09/05/20 06:59 06:59 06:59 Intake Total 1305 2210 Output Total 250 950 Balance 1055 1260 Weight 81.3 kg 80.9 kg General appearance: PRESENT: cooperative, mild distress, well-developed Head exam: PRESENT: atraumatic, normocephalic Respiratory exam: PRESENT: clear to auscultation krys, symmetrical, unlabored. ABSENT: prolonged expiratory phas, rales, rhonchi, tachypnea, wheezes Cardiovascular exam: PRESENT: RRR, +S1, +S2. ABSENT: bradycardia, diastolic murmur, irregular rhythm, systolic murmur, tachycardia GI/Abdominal exam: PRESENT: hyperactive bowel sounds, soft, tenderness - Minimal tenderness this morning. ABSENT: distended, guarding Rectal exam: PRESENT: deferred Gentrourinary exam: ABSENT: indwelling catheter Extremities exam: ABSENT: calf tenderness, pedal edema Musculoskeletal exam: PRESENT: ambulatory, normal inspection. ABSENT: deformity, dislocation Neurological exam: PRESENT: alert, awake, oriented to person, oriented to place, oriented to time, oriented to situation, CN II-XII grossly intact. ABSENT: altered Psychiatric exam: PRESENT: anxious - Somewhat anxious as he wishes to go home. ABSENT: agitated Focused psych exam: ABSENT: delusional, paranoid, restlessness Skin exam: PRESENT: dry, normal color, warm. ABSENT: rash Results Laboratory Results: 09/04/20 04:40 09/04/20 04:40 09/04/20 09/04/20 04:40 04:40 WBC 10.4 RBC 3.93 L Hgb 11.7 L Hct 33.9 L MCV 86 MCH 29.7 MCHC 34.5 RDW 13.1 Plt Count 409 Seg Neutrophils % 67.5 Sodium 138.6 Potassium 4.5 Chloride 101 Carbon Dioxide 29 Anion Gap 9 BUN 5 L Creatinine 0.63 Est GFR ( Amer) > 60 Glucose 87 Calcium 9.2 08/31/20 12:21 Abdomen - Abscess Gram Stain - Final 08/31/20 12:21 Abdomen - Abscess Wound Culture - Final Escherichia Coli Escherichia Coli#2 Enterococcus Faecalis(Group D) Anaerococcus (Peptostrep) Sp. Impressions: Percutaneous Drainage 08/31/20 11:00 IMPRESSION: The focal pelvic abscess was aspirated as discussed. A guidewire could not be placed to allow percutaneous drainage placement. Continued IV antibiotics are recommended and follow-up CT as clinically indicated. Abdomen/Pelvis CT 09/02/20 09:00 IMPRESSION: There is a the residual 20.7 x 45.2 mm abscess associated with sigmoid diverticulitis. Small right pleural effusion. Assessment and Plan - Diagnosis (1) Abdominal pain Qualifiers: Abdominal location: lower abdomen, unspecified Qualified Code(s): R10.30 - Lower abdominal pain, unspecified Is this a current diagnosis for this admission?: Yes Plan: Secondary to diverticular abscess. As needed analgesia. 08/31/2020-continue analgesia. 09/01/2020-underwent IR drainage. Still with some pain but reasonably controlled. 09/02/2020-reasonably controlled. Continue current regimen. 09/03/2020-continue current pain management regimen. 09/04/2020-slowly improving however crampy gas pain is now most predominant. Will try simethicone. (2) Diverticulitis of intestine with abscess Qualifiers: Diverticulitis site: unspecified part of intestinal tract Diverticulitis bleeding: unspecified bleeding status Qualified Code(s): K57.80 - Diverticulitis of intestine, part unspecified, with perforation and abscess without bleeding Is this a current diagnosis for this admission?: Yes Plan: There is no perforation. Interventional radiology will be draining the abscess tomorrow. Culture has been ordered. Ciprofloxacin and metronidazole IV antibiotics have been ordered. 08/31/2020-scheduled for interventional radiology percutaneous drain this morning. [id number] bacilli growing. Continue current antibiotic therapy until final ID and sensitivities available. 09/02/2020-2 different strains of E. coli as well as possible enterococcus identified. This is consistent with normal bowel ikm. 1 of the E. coli strains was resistant to ciprofloxacin. I have consolidated his antibiotics to Unasyn. This will cover both strains of E. coli and should cover the majority of the enterococcus isolates. 09/03/2020-CT scan from yesterday shows that the abscess is slightly bigger than when it was first drained. Surgery recommends repeating the CT scan in 48 hours. If the abscess is once again larger than previously the options would be to have interventional radiology place a drain in the lesion. They are unable to do this during the initial procedure. Or the patient would need surgery. Continue current antibiotic regimen. 09/04/2020-the plan is repeat CT scan tomorrow. If the abscess is bigger than p ossible drain placement by IR versus surgery. If it continues to decrease in size then possible discharge on oral antibiotic therapy but I will need to discuss with surgery. (3) Hypothyroidism Qualifiers: Hypothyroidism type: unspecified Qualified Code(s): E03.9 - Hypothyroidism, unspecified Is this a current diagnosis for this admission?: Yes Plan: Continue 50 mcg levothyroxine daily 09/01/2020-continue levothyroxine 09/04/2020-continue levothyroxine (4) Hypertension Qualifiers: Hypertension type: essential hypertension Qualified Code(s): I10 - Essential (primary) hypertension Is this a current diagnosis for this admission?: Yes Plan: Monitor vital signs. Continue lisinopril. He is also on a water pill. His is bringing the exact medications to the hospital for medication reconciliation. 09/10/2020-the patient's brought his medications. His usual dose at home is lisinopril 10 mg daily as well as hydrochlorothiazide 12.5 mg daily. We will adjust his regimen and monitor vital signs. 09/01/2020-reasonable blood pressure control. No changes in medication regimen at this time. 09/02/2020-continue to monitor vital signs. Currently no need to adjust medications. 09/03/2020-continue to monitor vital signs. No need to adjust medications at this time. Fluctuations in blood pressure could be related to episodes of discomfort. 09/04/2020-blood pressure is slightly elevated this morning. It certainly could be due to the crampy gas pain and his stress about wanting to discharge home. (5) Obstructive sleep apnea Is this a current diagnosis for this admission?: Yes Plan: The patient's will be bringing his CPAP machine to the hospital. CPAP nightly. 08/31/2020-the patient has his own CPAP machine. CPAP nightly. 09/01/2020-continue use of patient's CPAP. 09/03/2020-CPAP machine is at the bedside. The patient uses his CPAP machine n ightly. 09/04/2020-patient continues to use his CPAP machine at night (6) Chronic constipation Is this a current diagnosis for this admission?: Yes Plan: 08/31/2020-continue lubiprostone 09/01/2020-in addition to lubiprostone I have added MiraLAX. A mineral oil enema was ordered as well. Adjust regimen based on bowel function. 09/02/2020-through an javascript front end developer yasemin my impression was that the patient was not having bowel movements. Nursing states that he is passing loose stool. He is currently n.p.o. for his CT scan. Surgery recommended back to clear liquids at this time. Lactulose in addition to the lubiprostone currently in place. Will decrease doses based on bowel movements. 09/03/2020-patient remains on clear liquids. He did have a bowel movement yesterday. Continue lactulose and lubiprostone. 09/04/2020-continue clear liquids (7) Gastroesophageal reflux Qualifiers: Esophagitis presence: without esophagitis Qualified Code(s): K21.9 - G camila-esophageal reflux disease without esophagitis Is this a current diagnosis for this admission?: Yes Plan: 08/31/2020-continue Dexilant 09/01/2020-Dexilant is not on formulary. Substitute pantoprazole for this hospitalization. 09/02/2020-pantoprazole seems to be effective at this time. 09/03/2020-continue pantoprazole. 09/04/2020-continue pantoprazole. Add simethicone for crampy gas pain. - Time Time Spent with patient: Less than 15 minutes Medications reviewed and adjusted accordingly: Yes Anticipated Discharge Disposition: Home, Self Care Anticipated Discharge Timeframe: within 72 hours
[2020-09-04] MEDS: SIMETHICONE 80 MG TAB.CHEW PO PRN ×3 (11:20→23:27)
[2020-09-04] MEDS: RINGERS SOLUTION,LACTATED 1,000 ML IV PRN (11:20)
--- NOTE | 2020-09-04 12:35 | PDOC PROGRESS REPORT ---
Subjective Progress Note for:: 09/04/20 Subjective:: Feels better with less pelvic pains. Also he claims he had passed flatus and tolerating liquid diet. His white count is normal and afebrile. Reason For Visit: DIVERTICULITIS OF INTESTINE WITH ABSCESS Physical Exam Vital Signs: Temp Pulse Resp BP Pulse Ox 98.1 F 57 L 12 155/66 H 97 09/04/20 08:56 09/04/20 07:29 09/04/20 07:29 09/04/20 07:29 09/04/20 07:29 Intake & Output 09/03/20 09/04/20 09/05/20 06:59 06:59 06:59 Intake Total 1305 3210 Output Total 250 950 Balance 1055 2260 Weight 81.3 kg 80.9 kg Exam: Abdomen is soft with less tender in the mid and to the left suprapubic areas.. Results Laboratory Results: 09/04/20 04:40 09/04/20 04:40 09/04/20 09/04/20 04:40 04:40 WBC 10.4 RBC 3.93 L Hgb 11.7 L Hct 33.9 L MCV 86 MCH 29.7 MCHC 34.5 RDW 13.1 Plt Count 409 Seg Neutrophils % 67.5 Sodium 138.6 Potassium 4.5 Chloride 101 Carbon Dioxide 29 Anion Gap 9 BUN 5 L Creatinine 0.63 Est GFR ( Amer) > 60 Glucose 87 Calcium 9.2 08/31/20 12:21 Abdomen - Abscess Gram Stain - Final 08/31/20 12:21 Abdomen - Abscess Wound Culture - Final Escherichia Coli Escherichia Coli#2 Enterococcus Faecalis(Group D) Anaerococcus (Peptostrep) Sp. Impressions: Percutaneous Drainage 08/31/20 11:00 IMPRESSION: The focal pelvic abscess was aspirated as discussed. A guidewire could not be placed to allow percutaneous drainage placement. Continued IV antibiotics are recommended and follow-up CT as clinically indicated. Abdomen/Pelvis CT 09/02/20 09:00 IMPRESSION: There is a the residual 20.7 x 45.2 mm abscess associated with sigmoid diverticulitis. Small right pleural effusion. Assessment & Plan - Diagnosis (1) Diverticulitis of intestine with abscess Qualifiers: Diverticulitis site: unspecified part of intestinal tract Diverticulitis bleeding: unspecified bleeding status Qualified Code(s): K57.80 - Diverticulitis of intestine, part unspecified, with perforation and abscess without bleeding Is this a current diagnosis for this admission?: Yes - Time Critical Time spent with patient: 15-24 minutes Anticipated Discharge Disposition: Home, Self Care Anticipated Discharge Timeframe: within 72 hours - Inpatient Certification Medical Necessity: Need for IV Antibiotics - Plan Summary Plan Summary: 59-year-old male admitted for diverticular abscess which was initially aspirated on 08/31/2020. Repeat CT scan done 09/02 showed a residual abscess but slightly smaller. Patient has been afebrile passing flatus tolerating liquid diet with a normal white count. Agree with possible repeat CT scan to see if there is persistent abscess that may need to be drained percutaneously by IR.
[2020-09-04] MEDS: TRAZODONE HCL 50 MG TABLET PO SCH (21:19)
[2020-09-05] MEDS: AMPICILLIN SODIUM/SULBACTAM NA 3 GM in NORMAL SALINE 100 ML IV SCH ×4 (06:31→23:53)
[2020-09-05] MEDS: PANTOPRAZOLE SODIUM 40 MG TABLET.DR PO SCH (06:32)
[2020-09-05] MEDS: LEVOTHYROXINE SODIUM 0.05 MG TABLET PO SCH (06:32)
[2020-09-05] MEDS: HEPARIN SOD (PORCINE) 5,000 UNIT/ML 1 ML VIAL SUBCUT SCH ×3 (06:32→22:35)
[2020-09-05] MEDS: HYDROCHLOROTHIAZIDE 12.5 MG TABLET PO SCH (08:07)
[2020-09-05] MEDS: SIMETHICONE 80 MG TAB.CHEW PO PRN ×2 (08:13→22:34)
[2020-09-05] MEDS ORDERED: KETOROLAC TROMETHAMINE INJ/PF 30 MG/1 ML SDV IV PRN (08:32)
--- NOTE | 2020-09-05 10:19 | PDOC PROGRESS REPORT ---
Subjective Progress Note for:: 09/05/20 Reason For Visit: DIVERTICULITIS OF INTESTINE WITH ABSCESS Patient reportedly had uneventful night, no fever, tolerating clear liquids, voiding, ambulating in [place]; still on narcotics. For follow-up CT scan today. Patient remains on Unasyn IV. Physical Exam Vital Signs: Temp Pulse Resp BP Pulse Ox 98.1 F 61 16 147/67 H 96 09/05/20 08:06 09/05/20 08:06 09/05/20 08:06 09/05/20 08:06 09/05/20 08:06 Intake & Output 09/04/20 09/05/20 09/06/20 06:59 06:59 06:59 Intake Total 3210 450 Output Total 950 Balance 2260 450 Weight 80.9 kg 79.9 kg General appearance: PRESENT: no acute distress GI/Abdominal exam: PRESENT: other - Abdomen is soft; percutaneous stick site dressing removed. There are no peritoneal signs no rigidity. I withheld the morning narcotic dose. Results Laboratory Results: 09/04/20 04:40 09/04/20 04:40 08/31/20 09:11 Blood Blood Culture - Final NO GROWTH IN 5 DAYS Impressions: Percutaneous Drainage 08/31/20 11:00 IMPRESSION: The focal pelvic abscess was aspirated as discussed. A guidewire could not be placed to allow percutaneous drainage placement. Continued IV antibiotics are recommended and follow-up CT as clinically indicated. Abdomen/Pelvis CT 09/02/20 09:00 IMPRESSION: There is a the residual 20.7 x 45.2 mm abscess associated with sigmoid diverticulitis. Small right pleural effusion. Assessment & Plan - Diagnosis (1) Diverticulitis of intestine with abscess Qualifiers: Diverticulitis site: unspecified part of intestinal tract Diverticulitis bleeding: unspecified bleeding status Qualified Code(s): K57.80 - Diverticulitis of intestine, part unspecified, with perforation and abscess without bleeding Is this a current diagnosis for this admission?: Yes Plan: Impression: Hospitalization 1 week for complicated diverticulitis, inpatient with pandiverticulosis cyst, consistent with Hinchey classification 1 responding to intravenous antibiotics, and limited percutaneous aspiration of lower intra- abdominal abscess, afebrile, normal white blood cell count, no peritoneal signs, tolerating clear liquids; No indication for surgical intervention today Plan: 1. Discontinue narcotics; use Toradol; discussed with Dr. Gallo 2. Will review follow-up a CT scan of abdomen and pelvis. 3. Continue current therapy - Time Time Spent: 30 to 50 Minutes Critical Time spent with patient: Less than 15 minutes Medications reviewed and adjusted accordingly: Yes Anticipated Discharge Disposition: Home, Self Care Anticipated Discharge Timeframe: within 36 hours
[2020-09-05] MEDS ORDERED: DICYCLOMINE HCL 10 MG CAPSULE PO PRN (10:58)
[2020-09-05] MEDS: LUBIPROSTONE 24 MCG CAPSULE PO SCH ×2 (11:06→18:57)
[2020-09-05] MEDS: LISINOPRIL 10 MG TABLET PO SCH (11:06)
--- NOTE | 2020-09-05 20:54 | PDOC PROGRESS REPORT ---
Subjective Progress Note for:: 09/05/20 Subjective:: Patient is ambulating in the hallway. Still having crampy gas pain. Awaiting CT scan. One scanner unfortunately is nonfunctioning. Reason For Visit: DIVERTICULITIS OF INTESTINE WITH ABSCESS Physical Exam Vital Signs: Temp Pulse Resp BP Pulse Ox 97.7 F 62 16 131/69 H 96 09/05/20 17:12 09/05/20 17:12 09/05/20 17:12 09/05/20 17:12 09/05/20 17:12 Intake & Output 09/04/20 09/05/20 09/06/20 06:59 06:59 06:59 Intake Total 3210 450 356 Output Total 950 Balance 2260 450 356 Weight 80.9 kg 79.9 kg General appearance: PRESENT: cooperative, mild distress, well-developed Head exam: PRESENT: atraumatic, normocephalic Respiratory exam: PRESENT: clear to auscultation krys, symmetrical, unlabored. ABSENT: rales, rhonchi, tachypnea, wheezes Cardiovascular exam: PRESENT: RRR, +S1, +S2. ABSENT: bradycardia, diastolic murmur, irregular rhythm, systolic murmur, tachycardia GI/Abdominal exam: PRESENT: normal bowel sounds, soft. ABSENT: distended, guarding, tenderness Rectal exam: PRESENT: deferred Gentrourinary exam: ABSENT: indwelling catheter Extremities exam: ABSENT: pedal edema Musculoskeletal exam: PRESENT: ambulatory, normal inspection. ABSENT: deformity, dislocation Neurological exam: PRESENT: alert, awake, oriented to person, oriented to place, oriented to time, oriented to situation, CN II-XII grossly intact. ABSENT: altered Psychiatric exam: PRESENT: appropriate affect. ABSENT: agitated, anxious Focused psych exam: ABSENT: delusional, paranoid, restlessness Skin exam: PRESENT: dry, normal color, warm. ABSENT: rash Results Laboratory Results: 09/04/20 04:40 09/04/20 04:40 08/30/20 18:10 Blood Blood Culture - Final NO GROWTH IN 5 DAYS 08/31/20 09:11 Blood Blood Culture - Final NO GROWTH IN 5 DAYS Impressions: Percutaneous Drainage 08/31/20 11:00 IMPRESSION: The focal pelvic abscess was aspirated as discussed. A guidewire could not be placed to allow percutaneous drainage placement. Continued IV antibiotics are recommended and follow-up CT as clinically indicated. Abdomen/Pelvis CT 09/02/20 09:00 IMPRESSION: There is a the residual 20.7 x 45.2 mm abscess associated with sigmoid diverticulitis. Small right pleural effusion. Assessment and Plan - Diagnosis (1) Abdominal pain Qualifiers: Abdominal location: lower abdomen, unspecified Qualified Code(s): R10.30 - Lower abdominal pain, unspecified Is this a current diagnosis for this admission?: Yes Plan: Secondary to diverticular abscess. As needed analgesia. 08/31/2020-continue analgesia. 09/01/2020-underwent IR drainage. Still with some pain but reasonably controlled. 09/02/2020-reasonably controlled. Continue current regimen. 09/03/2020-continue current pain management regimen. 09/04/2020-slowly improving however crampy gas pain is now most predominant. Will try simethicone. 09/05/2020-increase simethicone. As discussed with Dr. Zapien will discontinue narcotic analgesia and institute trial of Toradol (2) Diverticulitis of intestine with abscess Qualifiers: Diverticulitis site: unspecified part of intestinal tract Diverticulitis bleeding: unspecified bleeding status Qualified Code(s): K57.80 - Diverticulitis of intestine, part unspecified, with perforation and abscess without bleeding Is this a current diagnosis for this admission?: Yes Plan: Impression: Hospitalization 1 week for complicated diverticulitis, inpatient with pandiverticulosis cyst, consistent with Hinchey classification 1 responding to intravenous antibiotics, and limited percutaneous aspiration of lower intra- abdominal abscess, afebrile, normal white blood cell count, no peritoneal signs, tolerating clear liquids; No indication for surgical intervention today Plan: 1. Discontinue narcotics; use Toradol; discussed with Dr. Gallo 2. Will review follow-up a CT scan of abdomen and pelvis. 3. Continue current therapy 09/05/2020 Initial aspiration by interventional radiology drained 50 mL of purulent material. Currently stable on IV Unasyn. Limited discomfort. Awaiting CT scan today. If lesion is smaller currently stable will review disposition with surgery. Possible outpatient ongoing antibiotic therapy and repeat CT scan as an outpatient. Disposition will be determined based on the results of today's scan. Unfortunately 1 scanner is down. Hopefully the patient scan will be obtained later today. (3) Hypothyroidism Qualifiers: Hypothyroidism type: unspecified Qualified Code(s): E03.9 - Hypothyroidism, unspecified Is this a current diagnosis for this admission?: Yes Plan: Continue 50 mcg levothyroxine daily 09/01/2020-continue levothyroxine 09/04/2020-continue levothyroxine (4) Hypertension Qualifiers: Hypertension type: essential hypertension Qualified Code(s): I10 - Essential (primary) hypertension Is this a current diagnosis for this admission?: Yes Plan: Monitor vital signs. Continue lisinopril. He is also on a water pill. His is bringing the exact medications to the hospital for medication reconciliation. 09/10/2020-the patient's brought his medications. His usual dose at home is lisinopril 10 mg daily as well as hydrochlorothiazide 12.5 mg daily. We will adjust his regimen and monitor vital signs. 09/01/2020-reasonable blood pressure control. No changes in medication regimen at this time. 09/02/2020-continue to monitor vital signs. Currently no need to adjust medications. 09/03/2020-continue to monitor vital signs. No need to adjust medications at this time. Fluctuations in blood pressure could be related to episodes of discomfort. 09/04/2020-blood pressure is slightly elevated this morning. It certainly could be due to the crampy gas pain and his stress about wanting to discharge home. 09/05/2020-acceptable blood pressures on current regimen (5) Obstructive sleep apnea Is this a current diagnosis for this admission?: Yes Plan: The patient's will be bringing his CPAP machine to the hospital. CPAP nightly. 08/31/2020-the patient has his own CPAP machine. CPAP nightly. 09/01/2020-continue use of patient's CPAP. 09/03/2020-CPAP machine is at the bedside. The patient uses his CPAP machine nightly. 09/04/2020-patient continues to use his CPAP machine at night (6) Chronic constipation Is this a current diagnosis for this admission?: Yes Plan: 08/31/2020-continue lubiprostone 09/01/2020-in addition to lubiprostone I have added MiraLAX. A mineral oil enema was ordered as well. Adjust regimen based on bowel function. 09/02/2020-through an electronic engraver yasemin my impression was that the patient was not having bowel movements. Nursing states that he is passing loose stool. He is currently n.p.o. for his CT scan. Surgery recommended back to clear liquids at this time. Lactulose in addition to the lubiprostone currently in place. Will decrease doses based on bowel movements. 09/03/2020-patient remains on clear liquids. He did have a bowel movement yesterday. Continue lactulose and lubiprostone. 09/04/2020-continue clear liquids 09/05/2020-patient still complaining of crampy gas pain. I will increase the simethicone to 180 mg. Otherwise continue current bowel regimen. (7) Gastroesophageal reflux Qualifiers: Esophagitis presence: without esophagitis Qualified Code(s): K21.9 - Gastro-esophageal reflux disease without esophagitis Is this a current diagnosis for this admission?: Yes Plan: 08/31/2020-continue Dexilant 09/01/2020-Dexilant is not on formulary. Substitute pantoprazole for this hospitalization. 09/02/2020-pantoprazole seems to be effective at this time. 09/03/2020-continue pantoprazole. 09/04/2020-continue pantoprazole. Add simethicone for crampy gas pain. - Time Time Spent with patient: Less than 15 minutes Medications reviewed and adjusted accordingly: Yes Anticipated Discharge Disposition: Home, Self Care Anticipated Discharge Timeframe: within 72 hours
[2020-09-05] MEDS: TRAZODONE HCL 50 MG TABLET PO SCH (22:35)
[2020-09-06] MEDS: PANTOPRAZOLE SODIUM 40 MG TABLET.DR PO SCH (05:53)
[2020-09-06] MEDS: LEVOTHYROXINE SODIUM 0.05 MG TABLET PO SCH (05:53)
[2020-09-06] MEDS: HEPARIN SOD (PORCINE) 5,000 UNIT/ML 1 ML VIAL SUBCUT SCH ×2 (05:53→13:35)
[2020-09-06] MEDS: AMPICILLIN SODIUM/SULBACTAM NA 3 GM in NORMAL SALINE 100 ML IV SCH ×2 (05:54→12:31)
[2020-09-06] MEDS: SIMETHICONE 80 MG TAB.CHEW PO PRN (08:00)
[2020-09-06] MEDS: HYDROCHLOROTHIAZIDE 12.5 MG TABLET PO SCH (08:00)
--- NOTE | 2020-09-06 10:08 | PDOC PROGRESS REPORT ---
Subjective Progress Note for:: 09/06/20 Subjective:: Feels well. Hungry. Minimal abdominal pain. Reason For Visit: DIVERTICULITIS OF INTESTINE WITH ABSCESS Physical Exam Vital Signs: Temp Pulse Resp BP Pulse Ox 98.4 F 64 17 140/61 H 94 09/06/20 07:23 09/06/20 07:23 09/06/20 07:23 09/06/20 07:23 09/06/20 07:23 Intake & Output 09/05/20 09/06/20 09/07/20 06:59 06:59 06:59 Intake Total 653 528 3274 Balance 206 899 4628 Weight 79.9 kg 78 kg General appearance: PRESENT: no acute distress, cooperative Respiratory exam: PRESENT: clear to auscultation krys Cardiovascular exam: PRESENT: RRR GI/Abdominal exam: PRESENT: other - Soft, nondistended, nontender to palpation. Results Laboratory Results: 09/04/20 04:40 09/04/20 04:40 08/30/20 18:10 Blood Blood Culture - Final NO GROWTH IN 5 DAYS 08/31/20 09:11 Blood Blood Culture - Final NO GROWTH IN 5 DAYS Impressions: Percutaneous Drainage 08/31/20 11:00 IMPRESSION: The focal pelvic abscess was aspirated as discussed. A guidewire could not be placed to allow percutaneous drainage placement. Continued IV antibiotics are recommended and follow-up CT as clinically indicated. Abdomen/Pelvis CT 09/02/20 09:00 IMPRESSION: There is a the residual 20.7 x 45.2 mm abscess associated with sigmoid diverticulitis. Small right pleural effusion. Assessment & Plan - Diagnosis (1) Diverticulitis of intestine with abscess Qualifiers: Diverticulitis site: unspecified part of intestinal tract Diverticulitis bleeding: unspecified bleeding status Qualified Code(s): K57.80 - Diverticulitis of intestine, part unspecified, with perforation and abscess without bleeding Plan: Patient much improved. We will start a solid diet. If tolerated may discharge patient home tomorrow with follow-up with Dr. Wheeler next week. Please place him on 2 weeks of Augmentin and Flagyl at home. Surgery service signing off. - Time Anticipated Discharge Disposition: Home, Self Care Anticipated Discharge Timeframe: within 24 hours
[2020-09-06] MEDS: LUBIPROSTONE 24 MCG CAPSULE PO SCH ×2 (10:22→11:56)
[2020-09-06] MEDS: LISINOPRIL 10 MG TABLET PO SCH (10:22)
--- NOTE | 2020-09-06 11:51 | RADIOLOGY REPORT (SQ) ---
EXAM DESCRIPTION: CT ABD/PELVIS WITH IV ONLY IMAGES COMPLETED DATE/TIME: 09/06/2020 11:13 am REASON FOR STUDY: f/u diverticulitis, r/o abscess COMPARISON: 09/02/2020 and 08/30/2020. TECHNIQUE: CT scan of the abdomen and pelvis performed using helical scanning technique with dynamic intravenous contrast injection. No oral contrast. Images reviewed with lung, soft tissue, and bone windows. Reconstructed coronal and sagittal MPR images reviewed. Delayed images for evaluation of the urinary system also acquired. All images stored on PACS. All CT scanners at this facility use dose modulation, iterative reconstruction, and/or weight based d osing when appropriate to reduce radiation dose to as low as reasonably achievable (ALARA). [facility]: Dose Right [facility]: CareDose [facility]: Dose Right [facility]: Teradose 4D [facility]: Sophia Search CONTRAST TYPE AND DOSE: contrast/concentration: Isovue 350.00 mmol/ml; Total Contrast Delivered: 27. 6 ml; Total Saline Delivered: 14.0 ml RENAL FUNCTION: BUN 5 creatinine 0.63. RADIATION DOSE: CT Rad equipment meets quality standard of care and radiation dose reduction techniq ues were employed. CTDIvol: 11.8 mGy. DLP: 1304 mGy-cm.. LIMITATIONS: None. FINDINGS: LOWER CHEST: No significant findings. No nodules or infiltrates. LIVER: Normal size. No masses. No dilated ducts. SPLEEN: Normal size. No focal lesions. PANCREAS: No masses. No significant calcifications. No adjacent inflammation or peripancreatic fluid collections. Pancreatic duct not dilated. GALLBLADDER: No identified stones by CT criteria. No inflammatory changes to suggest cholecystitis. ADRENAL GLANDS: No significant masses or asymmetry. RIGHT KIDNEY AND URETER: No solid masses. No significant calcifications. No hydronephrosis or hyd roureter. LEFT KIDNEY AND URETER: No solid masses. No significant calcifications. No hydronephrosis or hydr oureter. AORTA AND VESSELS: No aneurysm. No dissection. Renal arteries, SMA, celiac without stenosis. RETROPERITONEUM: No retroperitoneal adenopathy, hemorrhage or masses. BOWEL AND PERITONEAL CAVITY: Again seen are inflammatory changes associated with the sigmoid colon wi th adjacent abscess collection. The diverticular abscess is less distinct on the current study. Cur rent measurements are 1.7 x 4.3 cm with prior measurements 2.1 x 4.5 cm. No free fluid or peritoneal masses. APPENDIX: Normal. PELVIS: No mass. No free fluid. Normal bladder. ABDOMINAL WALL: No masses. No hernias. BONES: No significant or acute findings. OTHER: No other significant finding. IMPRESSION: 1. SIGMOID DIVERTICULAR ABSCESS APPEARS LESS DISTINCT ON THE CURRENT STUDY AND IS SLIGHTLY SMALLER. 2. NO OTHER SIGNIFICANT OR ACUTE FINDING IN THE ABDOMEN OR PELVIS ON CT SCAN WITH IV CONTRAST. TECHNICAL DOCUMENTATION: JOB ID: [id number] Quality ID # [id number]: Final reports with documentation of one or more dose reduction techniques (e.g., Au tomated exposure control, adjustment of the mA and/or kV according to patient size, use of iterative reconstruction technique) 2010 [employer]- All Rights Reserved Reading location - IP/workstation name: [email or web address]
[2020-09-06] MEDS: ACETAMINOPHEN 325 MG TABLET PO PRN (14:11)
[2020-09-06 14:20] VITALS: BP 130/60
[2020-09-06] MEDS ORDERED: COLCHICINE 0.6 MG TABLET PO SCH (15:00)
[2020-09-06] MEDS ORDERED: NAPROXEN 250 MG TABLET PO SCH (18:00)
--- NOTE | 2020-09-06 20:14 | PDOC DISCHARGE SUMMARY ---
Impression - Admit/DC Date/PCP Admission Date/Primary Care Provider: 08/30/20 20:10 INGRID HANSEN DO Discharge Date: 09/06/20 - Discharge Diagnosis (1) Diverticulitis of intestine with abscess Is this a current diagnosis for this admission?: Yes (2) Acute gout Is this a current diagnosis for this admission?: Yes (3) Abdominal pain Is this a current diagnosis for this admission?: Yes (4) Chronic constipation Is this a current diagnosis for this admission?: Yes (5) Gastroesophageal reflux Is this a current diagnosis for this admission?: Yes (6) Hypertension Is this a current diagnosis for this admission?: Yes (7) Hypothyroidism Is this a current diagnosis for this admission?: Yes (8) Obstructive sleep apnea Is this a current diagnosis for this admission?: Yes - Assessment Summary: Mr. Olivier Arambula is a 59 M who presented on 08/30/2020 with RLQ and LLQ abdominal pain. He was found to have a small diverticular abscess on CT A/P without evidence of sepsis or obstruction. General Surgery was consulted and recommended treating with antibiotics. On 08/31/2020, he underwent IR-guided abscess drainage. He was maintained on IV antibiotics and diet was advanced. Pain was controlled with Tylenol and NSAIDs. Repeat CT A/P on 09/06 showed improvement in abscess size, and patient noted improvement in pain and good oral intake. He was thus discharged home on oral antibiotics (Augmentin + Flagyl) for an additional 10 days. He will have close outpatient surgery and PCP follow up within 1-2 weeks. Hospital course was complicated by development of acute gout flare of the R elbow. He was started on colchicine and Naproxen for treatment. No steroids were given due to concern for above infection and ongoing antibiotics. - Additional Information Resuscitation Status: Full Code Discharge Diet: Cardiac Discharge Activity: Activity As Tolerated Referrals: ERICH JEROME MD [ACTIVE STAFF] - 09/16/20 8:45 am INGRID HANSEN DO [Primary Care Provider] - 09/15/20 10:45 am Prescriptions: Amoxicillin/Potassium Clav [Augmentin 875-125 Tablet] 1 tab PO Q12 #20 tablet Colchicine [Colcrys 0.6 mg Tablet] 1 tab PO DAILY #30 tab Metronidazole [Flagyl 500 mg Tablet] 500 mg PO TID #30 tablet Naproxen 500 mg PO BID #28 tablet. Home Medications: Levothyroxine Sodium 50 mcg PO Q6AM 07/02/17 Trazodone HCl 150 mg PO HSP PRN 07/02/17 Dexlansoprazole [Dexilant 60 mg Capsule] 60 mg PO DAILY 08/30/20 Fluticasone Propionate [Flonase Nasal [place] 50 Mcg/[place] 16 gm] 2 spray NASL QHS 08/30/20 Gabapentin [Neurontin] 800 mg PO Q8 08/30/20 Hydrochlorothiazide [Hydrodiuril 12.5 mg Tablet] 12.5 mg PO DAILY 08/30/20 Lisinopril [Zestril] 10 mg PO DAILY 08/30/20 Lubiprostone [Amitiza 24 Mcg Capsule] 24 mcg PO BID 08/30/20 Tizanidine HCl [Zanaflex 4 mg Tablet] 4 mg PO Q8HP PRN 08/30/20 Amoxicillin/Potassium Clav [Augmentin 875-125 Tablet] 1 tab PO Q12 #20 tablet 09/06/20 Colchicine [Colcrys 0.6 mg Tablet] 1 tab PO DAILY #30 tab 09/06/20 Metronidazole [Flagyl 500 mg Tablet] 500 mg PO TID #30 tablet 09/06/20 Naproxen 500 mg PO BID #28 tablet. 09/06/20 History of Present Illiness History of Present Illness: OLIVIER ARAMBULA is a 59 year old male Physical Exam Vital Signs: Temp Pulse Resp BP Pulse Ox 98.1 F 64 17 130/60 H 98 09/06/20 14:15 09/06/20 14:15 09/06/20 14:15 09/06/20 14:15 09/06/20 14:15 Intake & Output 09/05/20 09/06/20 09/07/20 06:59 06:59 06:59 Intake Total 517 742 3679 Balance 562 304 5105 Weight 79.9 kg 78 kg 78 kg Results Laboratory Results: WBC 10.4 10^3/uL (4.0-10.5) 09/04/20 04:40 RBC 3.93 10^6/uL (4.35-5.55) L 09/04/20 04:40 Hgb 11.7 g/dL (13.5-17.0) L 09/04/20 04:40 Hct 33.9 % (37.9-51.0) L 09/04/20 04:40 MCV 86 fl (80-97) 09/04/20 04:40 MCH 29.7 pg (27.0-33.4) 09/04/20 04:40 MCHC 34.5 g/dL (32.0-36.0) 09/04/20 04:40 RDW 13.1 % (11.5-14.0) 09/04/20 04:40 Plt Count 409 10^3/uL (150-450) 09/04/20 04:40 Lymph % (Auto) 22.7 % (13-45) 09/04/20 04:40 [place] % (Auto) 7.5 % (3-13) 09/04/20 04:40 Eos % (Auto) 1.4 % (0-6) 09/04/20 04:40 Baso % (Auto) 0.9 % (0-2) 09/04/20 04:40 Absolute Neuts (auto) 7.0 10^3/uL (1.7-8.2) 09/04/20 04:40 Absolute Lymphs (auto) 2.4 10^3/uL (0.5-4.7) 09/04/20 04:40 Absolute Monos (auto) 0.8 10^3/uL (0.1-1.4) 09/04/20 04:40 Absolute Eos (auto) 0.1 10^3/uL (0.0-0.6) 09/04/20 04:40 Absolute Basos (auto) 0.1 10^3/uL (0.0-0.2) 09/04/20 04:40 Seg Neutrophils % 67.5 % (42-78) 09/04/20 04:40 PT 13.6 SEC (11.4-15.4) 08/30/20 21:00 INR 1.02 08/30/20 21:00 Sodium 138.6 mmol/L (137-145) 09/04/20 04:40 Potassium 4.5 mmol/L (3.6-5.0) 09/04/20 04:40 Chloride 101 mmol/L (98-107) 09/04/20 04:40 Carbon Dioxide 29 mmol/L (22-30) 09/04/20 04:40 Anion Gap 9 (5-19) 09/04/20 04:40 BUN 5 mg/dL (7-20) L 09/04/20 04:40 Creatinine 0.63 mg/dL (0.52-1.25) 09/04/20 04:40 Est GFR ( Amer) > 60 (>60) 09/04/20 04:40 Est GFR (MDRD) Non-Af > 60 (>60) 09/04/20 04:40 Glucose 87 mg/dL (75-110) 09/04/20 04:40 Calcium 9.2 mg/dL (8.4-10.2) 09/04/20 04:40 Total Bilirubin 0.4 mg/dL (0.2-1.3) 08/30/20 11:56 Direct Bilirubin 0.3 mg/dL (0.0-0.4) 08/30/20 11:56 Neonat Total Bilirubin Not Reportable 08/30/20 11:56 Neonat Direct Bilirubin Not Reportable 08/30/20 11:56 Neonat Indirect Bili Not Reportable 08/30/20 11:56 AST 22 U/L (17-59) 08/30/20 11:56 ALT 18 U/L (<50) 08/30/20 11:56 Alkaline Phosphatase 81 U/L (38-126) 08/30/20 11:56 Total Protein 7.4 g/dL (6.3-8.2) 08/30/20 11:56 Albumin 3.9 g/dL (3.5-5.0) 08/30/20 11:56 Lipase 48.0 U/L (23-300) 08/30/20 11:56 Urine Color YELLOW 08/30/20 11:39 Urine Appearance CLEAR 08/30/20 11:39 Urine pH 5.0 (5.0-9.0) 08/30/20 11:39 Ur Specific [place] 1.013 08/30/20 11:39 Urine Protein NEGATIVE mg/dL (NEGATIVE) 08/30/20 11:39 Urine Glucose (UA) NEGATIVE mg/dL (NEGATIVE) 08/30/20 11:39 Urine Ketones NEGATIVE mg/dL (NEGATIVE) 08/30/20 11:39 Urine Blood NEGATIVE (NEGATIVE) 08/30/20 11:39 Urine Nitrite NEGATIVE (NEGATIVE) 08/30/20 11:39 Urine Bilirubin NEGATIVE (NEGATIVE) 08/30/20 11:39 Urine Urobilinogen NEGATIVE mg/dL (<2.0) 08/30/20 11:39 Ur Leukocyte Esterase NEGATIVE (NEGATIVE) 08/30/20 11:39 Urine WBC (Auto) 1 /HPF 08/30/20 11:39 Urine Mucus (Auto) RARE /LPF 08/30/20 11:39 Urine Ascorbic Acid NEGATIVE (NEGATIVE) 08/30/20 11:39 Impressions: Abdomen/Pelvis CT 08/30/20 11:13 IMPRESSION: Sigmoid diverticulitis. There is now a 3 x 5 cm abscess. No free air or fluid in the peritoneal cavity. Percutaneous Drainage 08/31/20 11:00 IMPRESSION: The focal pelvic abscess was aspirated as discussed. A guidewire could not be placed to allow percutaneous drainage placement. Continued IV antibiotics are recommended and follow-up CT as clinically indicated. Abdomen/Pelvis CT 09/02/20 09:00 IMPRESSION: There is a the residual 20.7 x 45.2 mm abscess associated with sigmoid diverticulitis. Small right pleural effusion. Abdomen/Pelvis CT 09/06/20 00:00 IMPRESSION: 1. SIGMOID DIVERTICULAR ABSCESS APPEARS LESS DISTINCT ON THE CURRENT STUDY AND IS SLIGHTLY SMALLER. 2. NO OTHER SIGNIFICANT OR ACUTE FINDING IN THE ABDOMEN OR PELVIS ON CT SCAN WITH IV CONTRAST. Stroke Is this a Stroke Patient?: No Acute Heart Failure Is this a Heart Failure Patient?: No
--- NOTE | 2020-09-09 12:45 | PDOC CONSULTATION ---
Consultation Consult Date: 09/01/20 Provider Consulted: NEYDA CHRISTIANSON Consult reason:: Diverticulitis with abscess History of Present Illness Admission Date/PCP: 08/30/20 20:10 INGRID HANSEN DO History of Present Illness: CONNIE ARAMBULA is a 59 year old male patient admitted for abdominal pain, had been seen as an outpatient and failed outpatient antibiotics admitted for ongoing abdominal pain and noted to have diverticulitis with likely limited performation and containment with abscess needs to have drain place surgery has been called he is currently on IV antibiotics patient has had a colonoscopy in the past and documentation of diverticulosis has had recent hernia repair as well Past Medical History Cardiac Medical History: Reports: Hypertension Denies: Coronary Artery Disease, Myocardial Infarction Pulmonary Medical History: Reports: Sleep Apnea Denies: Asthma, Bronchitis, Chronic Obstructive Pulmonary Disease (COPD), Pneumonia EENT Medical History: Denies: Ears, Nose, Throat Neurological Medical History: Denies: Ischemic CVA, Seizures Endocrine Medical History: Reports: Hypothyroidism Denies: Diabetes Mellitus Type 2 Renal/ Medical History: Denies: Chronic Kidney Disease Malignancy Medical History: Reports: None GI Medical History: Denies: Gastroesophageal Reflux Disease, Ulcerative Colitis Musculoskeltal Medical History: Reports: Arthritis Psychiatric Medical History: Denies: Alcohol Dependency, Substance Abuse, Tobacco Dependency Hematology: Denies: Anemia Infectious Medical History: Reports: None Past Surgical History Past Surgical History: Reports: Herniorrhaphy, Orthopedic Surgery - Right knee arthroplasty Social History Lives with: Spouse/Significant other Smoking Status: Former Smoker Electronic Cigarette use?: No Frequency of Alcohol Use: Occasional Hx Recreational Drug Use: No Drugs: None Hx Prescription Drug Abuse: No - Advance Directive Resuscitation Status: Full Code Family History Family History: Reviewed & Not Pertinent Parental Family History Reviewed: Yes Children Family History Reviewed: Unknown Sibling(s) Family History Reviewed.: Unknown Medication/Allergy Home Medications: Levothyroxine Sodium 50 mcg PO Q6AM 07/02/17 Trazodone HCl 150 mg PO HSP PRN 07/02/17 Dexlansoprazole [Dexilant 60 mg Capsule] 60 mg PO DAILY 08/30/20 Fluticasone Propionate [Flonase Nasal [place] 50 Mcg/[place] 16 gm] 2 spray NASL QHS 08/30/20 Gabapentin [Neurontin] 800 mg PO Q8 08/30/20 Hydrochlorothiazide [Hydrodiuril 12.5 mg Tablet] 12.5 mg PO DAILY 08/30/20 Ibuprofen [Motrin 800 mg Tablet] 800 mg PO Q8HP PRN 08/30/20 Lisinopril [Zestril] 10 mg PO DAILY 08/30/20 Lubiprostone [Amitiza 24 Mcg Capsule] 24 mcg PO BID 08/30/20 Tizanidine HCl [Zanaflex 4 mg Tablet] 4 mg PO Q8HP PRN 08/30/20 Allergies/Adverse Reactions: No Known Allergies Allergy (Verified 08/30/20 17:47) Review of Systems Constitutional: ABSENT: fever(s), headache(s), night sweats, weakness Eyes: ABSENT: visual disturbances Ears: ABSENT: hearing changes Nose, Mouth, and Throat: ABSENT: mouth pain, sore throat Cardiovascular: ABSENT: edema, orthropnea, palpitations Respiratory: ABSENT: dyspnea, hemoptysis Gastrointestinal: PRESENT: abdominal pain, bloating. ABSENT: hematochezia, melena Genitourinary: ABSENT: dysuria, hematuria Musculoskeletal: ABSENT: deformity, joint swelling Neurological: ABSENT: syncope, tingling, tremor(s), vertigo Endocrine: ABSENT: polydipsia, polyphagia, polyuria Physical Exam Vital Signs: Temp Pulse Resp BP Pulse Ox 98.1 F 61 16 147/67 H 96 09/05/20 08:06 09/05/20 08:06 09/05/20 08:06 09/05/20 08:06 09/05/20 08:06 Intake & Output 09/04/20 09/05/20 09/06/20 06:59 06:59 06:59 Intake Total 3210 450 Output Total 950 Balance 2260 450 Weight 80.9 kg 79.9 kg General appearance: PRESENT: mild distress Head exam: PRESENT: atraumatic, normocephalic Eye exam: PRESENT: EOMI, PERRLA. ABSENT: nystagmus, periorbital swelling, scleral icterus Mouth exam: PRESENT: moist, neck supple Throat exam: ABSENT: tonsillar exudate, tonsillogmegaly Neck exam: ABSENT: meningismus, tenderness, thyromegaly Respiratory exam: PRESENT: symmetrical, unlabored. ABSENT: tachypnea, wheezes Cardiovascular exam: PRESENT: RRR, +S1, +S2 GI/Abdominal exam: PRESENT: diminished bowel sounds, distended, firm. ABSENT: Marie's sign Extremities exam: ABSENT: joint swelling Musculoskeletal exam: PRESENT: full ROM Neurological exam: PRESENT: oriented to time, oriented to situation, CN II-XII grossly intact Focused psych exam: ABSENT: restlessness Skin exam: PRESENT: normal color. ABSENT: mottled, pallor, petechiae, urt icaria, vesicles Results Laboratory Results: 09/04/20 04:40 09/04/20 04:40 08/31/20 09:11 Blood Blood Culture - Final NO GROWTH IN 5 DAYS Impressions: Percutaneous Drainage 08/31/20 11:00 IMPRESSION: The focal pelvic abscess was aspirated as discussed. A guidewire could not be placed to allow percutaneous drainage placement. Continued IV antibiotics are recommended and follow-up CT as clinically indicated. Abdomen/Pelvis CT 09/02/20 09:00 IMPRESSION: There is a the residual 20.7 x 45.2 mm abscess associated with sigmoid diverticulitis. Small right pleural effusion. Assessment & Plan - Diagnosis (1) Diverticulitis of intestine with abscess Qualifiers: Diverticulitis site: unspecified part of intestinal tract Diverticulitis bleeding: unspecified bleeding status Qualified Code(s): K57.80 - Diverticulitis of intestine, part unspecified, with perforation and abscess without bleeding Is this a current diagnosis for this admission?: Yes Plan: admitted due to failed outpatient treatment of diverticulitis IR will be placin drainage cath surgery is following need broad spectrum antibiotics to cover for gram negative and anaerobic coverage
== END 2020-09-06 14:40 | disposition home or self-care (01) | DRG 392 ==
LOC: ER 09:55 → EH 20:10 → 5 08-31 13:01
PROVIDERS: ADMIT Hospitalist; ATTEND Hospitalist
PROC: 5A09357 Assistance with Respiratory Ventilation, Less than 24 Consecutive Hours, Continuous Positive Airway Pressure (ICD-10-PCS; 2020-08-30)
PROC: 02HV33Z Insertion of Infusion Device into Superior Vena Cava, Percutaneous Approach (ICD-10-PCS; principal; 2020-08-31)
DX: K57.80 Diverticulitis of intestine, part unspecified, with perforation and abscess without bleeding (principal); I10 Essential (primary) hypertension; E03.9 Hypothyroidism, unspecified; B96.20 Unspecified Escherichia coli [E. coli] as the cause of diseases classified elsewhere; B95.2 Enterococcus as the cause of diseases classified elsewhere; M10.9 Gout, unspecified; K59.00 Constipation, unspecified; K21.9 Gastro-esophageal reflux disease without esophagitis; G47.33 Obstructive sleep apnea (adult) (pediatric); Z77.22 Contact with and (suspected) exposure to environmental tobacco smoke (acute) (chronic); Z79.899 Other long term (current) drug therapy; Z80.9 Family history of malignant neoplasm, unspecified
CPT/HCPCS: 36415; 74177; 75989; 80048; 80053; 81001; 83690; 85025; 85610; 87040; 87070; 87075; 87077; 87186; 87205; 96361; 96365; 96368; 96375; 96376; 99285; C1729; C1769; C1894; J0131; J0295; J0744; J1644; J1885; J2250; J2270; J2405; J3010; J3490; J7030; J7050; J7120

== ENCOUNTER 2020-09-10 08:21 | Emergency (ER) | payer MEDICAID ==
[2020-09-10] MEDS ORDERED: OXYCODONE-ACETAMINOPHEN 5-325 MG TABLET PO ONE (10:39)
[2020-09-10] MEDS ORDERED: ONDANSETRON 4 MG TAB.RAPDIS PO ONE (10:39)
--- NOTE | 2020-09-10 10:44 | ER Document Report ---
ED General - General Chief Complaint: Arm Pain Stated Complaint: HEAD,ARM PAIN Time Seen by Provider: 09/10/20 09:10 Primary Care Provider: INGRID HANSEN DO [Primary Care Provider] - Follow up as needed TRAVEL OUTSIDE OF THE [place] IN LAST 30 DAYS: No - HPI Notes: Patient is a 59-year-old male, exclusively Beninese-speaking, who presents to the emergency department for evaluation of pain in his right upper extremity. The patient was recently admitted to the hospital. He was found to have diverticulitis with abscess. He had a course that was remarkable for some gout treated with colchicine. He states that since being discharged she had a follow-up CT scan. He had an IV placed in his right wrist. He said right wrist pain and swelling. Now he has pain that shoots all the way up his arm, from his wrist into his shoulder, up into his neck, and into his head. He puts his pain at a 4 out of 5. Is worsened by movement. He denies any chest pain or shortness of breath. No fevers or chills. No nausea or vomiting. He is seeing, speaking, swallowing without difficulty. The patient states he has been taking all of his medications as prescribed. - Related Data Allergies/Adverse Reactions: No Known Allergies Allergy (Verified 09/10/20 09:16) Home Medications: List reviewed from recent discharge summary Past Medical History - General Information source: Patient, [facility] Records - Social History Smoking Status: Never Smoker Chew tobacco use (# tins/day): No Frequency of alcohol use: None Drug Abuse: None Family History: Reviewed & Not Pertinent - Past Medical History Cardiac Medical History: Reports: Hx Hypertension Denies: Hx Coronary Artery Disease, Hx Heart Attack Pulmonary Medical History: Reports: Hx Sleep Apnea Denies: Hx Asthma, Hx Bronchitis, Hx COPD, Hx Pneumonia Neurological Medical History: Denies: Hx Cerebrovascular Accident, Hx Seizures Endocrine Medical History: Reports: Hx Hypothyroidism. Denies: Hx Diabetes Mellitus Type 2 Renal/ Medical History: Denies: Hx Peritoneal Dialysis GI Medical History: Denies: Hx Gastroesophageal Reflux Disease, Hx Ulcerative Colitis Musculoskeletal Medical History: Reports Hx Arthritis Past Surgical History: Reports: Hx Abdominal Surgery - hernia, drainage of diverticular abscess, Hx Herniorrhaphy, Hx Orthopedic Surgery - Right knee arthroplasty, krys shoulder - Immunizations Hx Diphtheria, Pertussis, Tetanus Vaccination: No Review of Systems - Review of Systems Constitutional: No symptoms reported EENT: No symptoms reported Cardiovascular: No symptoms reported Respiratory: No symptoms reported Gastrointestinal: No symptoms reported Genitourinary: No symptoms reported Musculoskeletal: See HPI Skin: No symptoms reported Neurological/Psychological: No symptoms reported Physical Exam - Vital signs Vitals: Temp Pulse Resp BP Pulse Ox 98.3 F 104 H 16 153/73 H 99 09/10/20 08:29 09/10/20 08:29 09/10/20 08:29 09/10/20 08:29 09/10/20 08:29 - Notes Notes: This is a very pleasant 59-year-old male who appears stated age, no acute distress. He holds his neck, shoulders, upper arms bilaterally and a very stiff and rigid motion. He moves his entire torso as 1 unit. He will not turn his head. Vital signs reviewed, please refer to chart. Head is normocephalic, atrau matic. Pupils equal round, reactive to light. Neck is supple without meningismus. Heart is regular rate and rhythm. Lungs are clear to auscultation bilaterally. Abdomen is soft, nontender, normoactive bowel sounds throughout. Examination of the right upper extremity yields a moderate amount of edema that seem to be most notable in the dorsum of the hand and extend proximally through the wrist. He has some mild calor associated with it, no erythema, no induration. Active range of motion of the shoulder and elbow, as well as wrist, is limited secondary to pain, although passive range of motion is full. He has a scar overlying the shoulder, well-healed, without signs of dehiscence. Capillary refill is brisk. Radial pulse 2+. Sensation is intact. Course - Re-evaluation Re-evalutation: 09/10/20 10:43 Patient presents to the emergency department for evaluation. [facility] interpretive services are used to communicate directly with the patient. His vital signs are largely unremarkable with exception of a very mild tachycardia, but he is not tachycardic at the time of my auscultation. He denies any chest pain or shortness of breath. Given his recent IV placement in the right upper extremity I do suspect superficial thrombophlebitis, but ultrasound is ordered to rule out anything in the deep venous system. Again treated with Percocet and Zofran here. Otherwise his abdominal exam is unremarkable. He has been taking his antibiotics as prescribed. He really does not have much in the way of edema around the elbow consistent with his recent acute gouty flare. He is currently stable, we will continue to monitor. 09/10/20 13:41 Patient's venous Doppler is negative for any signs of superficial thromboph lebitis or other venous thromboembolism. On further examination, after watching the patient move, I do suspect that it was inadequately controlled pain that is contributing to his symptoms. He started by not moving his elbow, thereby not moving his arm. This led to the edema and worsened pain. As a result he is not moving his right upper extremity at all without actually moving it passively by his left upper extremity. I suspect that this is all related. After some Percocet here he is feeling improved. I explained to him that I believe more active range of motion of the right upper extremity will be necessary. He is not showing any signs of significant infection. He is already on Augmentin and Flagyl. I will send him home with muscle relaxers and pain medication. He is to follow-up closely with his primary care provider this week. He is to return to the ED with worsening or new concerning symptoms of any sort. - Vital Signs Vital signs: Temp Pulse Resp BP Pulse Ox 97.9 F 68 18 137/67 H 99 09/10/20 12:39 09/10/20 12:39 09/10/20 12:39 09/10/20 12:39 09/10/20 12:39 Discharge - Discharge Clinical Impression: Right arm pain, Swelling of right hand, Neck and shoulder pain Condition: Stable Disposition: HOME, SELF-CARE Instructions: Myalagia (Muscle Pain) (OM), Muscle Relaxers (OM), Oral Narcotic Medication (OM) Additional Instructions: Please take medications as prescribed. Note that these can cause dizziness, drowsiness, constipation. Do not drive while taking these medications. Follow- up with your primary care provider this week. Return to the emergency department with worsening or new concerning symptoms of any sort. Referrals: INGRID HANSEN, [Primary Care Provider] - Follow up as needed
[2020-09-10 12:40] VITALS: BP 137/67
--- NOTE | 2020-09-10 13:49 | RADIOLOGY REPORT (SQ) ---
EXAM DESCRIPTION: VENOUS UNILATERAL UPPER IMAGES COMPLETED DATE/TIME: 09/10/2020 1:24 pm REASON FOR STUDY: RUE swelling, recent IV, eval for VT COMPARISON: None. TECHNIQUE: Dynamic and static sanchez scale and color images acquired of the right arm venous system. S elected spectral images acquired with additional compression and augmentation maneuvers. The contrala teral subclavian vein and internal jugular vein were also imaged. Images stored on PACS. LIMITATIONS: None. FINDINGS: INTERNAL JUGULAR VEIN: Normal phasicity, compression, augmentation. No visualized echogeni c material on sanchez scale. No defects on color images. Comparison opposite side normal. SUBCLAVIAN VEIN: Normal compression, augmentation. No visualized echogenic material on sanchez scale. No defects on color images. AXILLARY VEIN: Normal compression, augmentation. No visualized echogenic material on sanchez scale. No d efects on color images. BRACHIAL VEIN: Normal compression, augmentation. No visualized echogenic material on sanchez scale. No d efects on color images. BASILIC VEIN: Normal compression, augmentation. No visualized echogenic material on sanchez scale. No de fects on color images. CEPHALIC VEIN: Normal compression, augmentation. No visualized echogenic material on sanchez scale. No d efects on color images. OTHER: No other significant finding. CONTRALATERAL SUBCLAVIAN VEIN AND INTERNAL JUGULAR VEIN: Normal phasicity, compression and augmentation. No visualized echogenic material on sanchez scale. No de fects on color images. IMPRESSION: NO EVIDENCE DVT OR SVT IN THE RIGHT ARM. TECHNICAL DOCUMENTATION: JOB ID: [id number] 2010 [employer]- All Rights Reserved Reading location - IP/workstation name: [email or web address]
== END 2020-09-10 13:56 | disposition home or self-care (01) ==
LOC: ER 08:21
DX: M79.621 Pain in right upper arm (principal); M25.531 Pain in right wrist; M25.511 Pain in right shoulder; M79.89 Other specified soft tissue disorders; M54.2 Cervicalgia; I10 Essential (primary) hypertension; K57.80 Diverticulitis of intestine, part unspecified, with perforation and abscess without bleeding
CPT/HCPCS: 99285; 93971; S0119

== ENCOUNTER 2020-09-13 11:24 | Emergency (ER) | payer MEDICAID ==
--- NOTE | 2020-09-13 12:01 | ER Document Report ---
ED Medical Screen (RME) - General Chief Complaint: Pain All Over Stated Complaint: BODY PAIN Time Seen by Provider: 09/13/20 11:51 Primary Care Provider: INGRID HANSEN DO [Primary Care Provider] - Follow up as needed TRAVEL OUTSIDE OF THE [place] IN LAST 30 DAYS: No - HPI Notes: 09/13/20 11:57 59-year-old male Thai-speaking only who presents to the emergency room after being evaluated this past Saturday for arm pain, patient was recently seen in the emergency room for diverticulitis that developed an abscess that he needed to get drained over the last 2 weeks. Patient states he has been having issues with his right arm since he had contrast for CT scan. Patient was evaluated this past Saturday, venous Doppler was negative for DVT. He was discharged home with pain medication which he states is not helping, his pain is becoming worse, he is now complaining of bilateral arm pain that shoots up to his neck, right greater than left. denies any chest pain shortness of breath, nausea vomiting diarrhea. Patient denies any numbness or tingling down his arms he reports more he is having pain. Patient states that his pain started after he was discharged from the hospital from his abscess related to his diverticulitis. Has not followed up with a primary care provider or finish specialist for this issue. Reports he is taking Percocet for his pain. I have greeted and performed a rapid initial assessment of this patient. A comprehensive ED assessment and evaluation of the patient, analysis of test results and completion of the medical decision making process will be conducted by additional ED providers. PHYSICAL EXAMINATION: GENERAL: Well-appearing, well-nourished and in mild distress. CV: s1, s2 regular LUNGS: No respiratory distress Musculoskeletal: Normal range of motion. Psychology Assistant equal, +1. Full range of motion of bilateral upper extremities, patient grimacing with pain. No tenderness to C-spine on palpation. NEUROLOGICAL: Normal speech, normal gait. SKIN: Warm, Dry, normal turgor, no rashes or lesions noted. 09/13/20 12:00 09/13/20 12:00 - Related Data Allergies/Adverse Reactions: No Known Allergies Allergy (Verified 09/10/20 09:16) Past Medical History - Past Medical History Cardiac Medical History: Reports: Hx Hypertension Denies: Hx Coronary Artery Disease, Hx Heart Attack Pulmonary Medical History: Reports: Hx Sleep Apnea Denies: Hx Asthma, Hx Bronchitis, Hx COPD, Hx Pneumonia Neurological Medical History: Denies: Hx Cerebrovascular Accident, Hx Seizures Endocrine Medical History: Reports: Hx Hypothyroidism. Denies: Hx Diabetes Mellitus Type 2 Renal/ Medical History: Denies: Hx Peritoneal Dialysis GI Medical History: Denies: Hx Gastroesophageal Reflux Disease, Hx Ulcerative Colitis Musculoskeltal Medical History: Reports Hx Arthritis Past Surgical History: Reports: Hx Abdominal Surgery - hernia, drainage of diver ticular abscess, Hx Herniorrhaphy, Hx Orthopedic Surgery - Right knee arthroplasty, krys shoulder - Immunizations Hx Diphtheria, Pertussis, Tetanus Vaccination: No Physical Exam - Vital signs Vitals: Temp Pulse Resp BP Pulse Ox 98.3 F 86 16 148/76 H 96 09/13/20 11:38 09/13/20 11:38 09/13/20 11:38 09/13/20 11:38 09/13/20 11:38 Course - Vital Signs Vital signs: Temp Pulse Resp BP Pulse Ox 98.3 F 86 16 148/76 H 96 09/13/20 11:38 09/13/20 11:38 09/13/20 11:38 09/13/20 11:38 09/13/20 11:38 Doctor's Discharge - Discharge Referrals: INGRID HANSEN DO [Primary Care Provider] - Follow up as needed
[2020-09-13 12:33] LABS: ABSOLUTE BASOPHILS # (AUTO) 0.1 10^3/uL (0.0-0.2); ABSOLUTE EOSINOPHILS # (AUTO) 0.2 10^3/uL (0.0-0.6); ABSOLUTE LYMPHOCYTES (AUTO) 2.1 10^3/uL (0.5-4.7); ABSOLUTE MONOCYTES (AUTO) 0.6 10^3/uL (0.1-1.4); ABSOLUTE NEUT (AUTO) 7.6 10^3/uL (1.7-8.2); BASOPHILS % (AUTO) 1.1 % (0-2); EOSINOPHILS % (AUTO) 1.6 % (0-6); HEMATOCRIT 36.6 % (37.9-51.0); HEMOGLOBIN 12.6 g/dL (13.5-17.0); LYMPHOCYTES % (AUTO) 19.6 % (13-45); MEAN CORPUSCULAR HEMOGLOBIN 29.3 pg (27.0-33.4); MEAN CORPUSCULAR HGB CONC 34.5 g/dL (32.0-36.0); MEAN CORPUSCULAR VOLUME 85 fl (80-97); MONOCYTES % (AUTO) 5.9 % (3-13); PLATELET COUNT 521 10^3/uL (150-450); RED CELL DISTRIBUTION WIDTH 13.8 % (11.5-14.0); SEGMENTED NEUTROPHILS % (AUTO) 71.8 % (42-78); TOTAL CELLS COUNTED % (AUTO) 100 %; WHITE BLOOD COUNT 10.6 10^3/uL (4.0-10.5)
[2020-09-13 12:55] LABS: ALBUMIN 4.1 g/dL (3.5-5.0); ALKALINE PHOSPHATASE 70 U/L (38-126); ANION GAP 12 (5-19); ASPARTATE AMINO TRANSFERASE 22 U/L (17-59); BILIRUBIN,DIRECT 0.2 mg/dL (0.0-0.4); BILIRUBIN,TOTAL 0.5 mg/dL (0.2-1.3); BLOOD UREA NITROGEN 9 mg/dL (7-20); C-REACTIVE PROTEIN 30.3 mg/L (<10.0); CALCIUM 10.1 mg/dL (8.4-10.2); CARBON DIOXIDE 28 mmol/L (22-30); CHLORIDE 97 mmol/L (98-107); GLUCOSE 113 mg/dL (75-110); POTASSIUM 4.7 mmol/L (3.6-5.0); TOTAL PROTEIN 8.1 g/dL (6.3-8.2)
[2020-09-13 13:10] LABS: ERYTHROCYTE SEDIMENTATION RATE 97 mm/hr (0-20)
[2020-09-13] MEDS ORDERED: KETOROLAC TROMETHAMINE 60 MG/2 ML SDV IM ONE (15:15)
--- NOTE | 2020-09-13 15:20 | ER Document Report ---
ED General - General Chief Complaint: Pain All Over Stated Complaint: BODY PAIN Time Seen by Provider: 09/13/20 11:51 Primary Care Provider: INGRID HANSEN DO [Primary Care Provider] - Follow up as needed Mode of Arrival: Ambulatory Information source: Patient TRAVEL OUTSIDE OF THE [place] IN LAST 30 DAYS: No - HPI Notes: I put in the order left renal docs note I cannot remember pretty sure I did patient presents with bilateral arm pain. He states the pain is mainly about both wrists as well as his right elbow and both shoulders. His pain is moderate to severe and constant. Is worse with movement and better with rest. He states he feels similar to when he has had previous problems with gout arthritis. It is a dull and aching sensation. He denies any chest pain. No abdominal pain. No vomiting or diarrhea. No cough cold or congestion. No trauma. - Related Data Allergies/Adverse Reactions: No Known Allergies Allergy (Verified 09/10/20 09:16) Past Medical History - General Information source: Patient - Social History Smoking Status: Former Smoker Frequency of alcohol use: None Drug Abuse: None Family History: Reviewed & Not Pertinent - Past Medical History Cardiac Medical History: Reports: Hx Hypertension Denies: Hx Coronary Artery Disease, Hx Heart Attack Pulmonary Medical History: Reports: Hx Sleep Apnea Denies: Hx Asthma, Hx Bronchitis, Hx COPD, Hx Pneumonia Neurological Medical History: Denies: Hx Cerebrovascular Accident, Hx Seizures Endocrine Medical History: Reports: Hx Hypothyroidism. Denies: Hx Diabetes Mellitus Type 2 Renal/ Medical History: Denies: Hx Peritoneal Dialysis GI Medical History: Denies: Hx Gastroesophageal Reflux Disease, Hx Ulcerative Colitis Musculoskeletal Medical History: Reports Hx Arthritis Past Surgical History: Reports: Hx Abdominal Surgery - hernia, drainage of diverticular abscess, Hx Herniorrhaphy, Hx Orthopedic Surgery - Right knee arthroplasty, krys shoulder - Immunizations Hx Diphtheria, Pertussis, Tetanus Vaccination: No Review of Systems - Review of Systems Constitutional: denies: Chills, Fever Cardiovascular: denies: Chest pain, Palpitations Respiratory: denies: Cough, Short of breath -: Yes All other systems reviewed and negative Physical Exam - Vital signs Vitals: Temp Pulse Resp BP Pulse Ox 98.3 F 86 16 148/76 H 96 09/13/20 11:38 09/13/20 11:38 09/13/20 11:38 09/13/20 11:38 09/13/20 11:38 Interpretation: Normal - General General appearance: Appears well, Alert - HEENT Head: Normocephalic, Atraumatic Eyes: Normal Pupils: PERRL - Respiratory Respiratory status: No respiratory distress Chest status: Nontender Breath sounds: Normal Chest palpation: Normal - Cardiovascular Rhythm: Regular Heart sounds: Normal auscultation Murmur: No - Abdominal Inspection: Normal Distension: No distension Bowel sounds: Normal Tenderness: Nontender Organomegaly: No organomegaly - Back Back: Normal, Nontender - Extremities General upper extremity: Other - Patient has limited range of motion of both wrists. Both wrists are diffusely tender to palpation and have increased warmth. Some mild erythema of the wrist joint as well. Right elbow is also tender to palpation. Patient seems to have some diffuse hand pain bilaterally as well. Patient has limited range of motion of the wrist elbows and shoulders bilaterally. Exam appears to be consistent with a acute gout flare. General lower extremity: Normal inspection, Nontender, Normal color, Normal ROM, Normal temperature, Normal weight bearing. No: Jaciel's sign - Neurological Neuro grossly intact: Yes Cognition: Normal Orientation: AAOx4 [place] Coma Scale Eye Opening: Spontaneous [place] Coma Scale Verbal: Oriented [place] Coma Scale Motor: Obeys Commands [place] Coma Scale Total: 15 Speech: Normal Motor strength normal: LUE, RUE, LLE, RLE Sensory: Normal - Psychological Associated symptoms: Normal affect, Normal mood - Skin Skin Temperature: Warm Skin Moisture: Dry Skin Color: Normal Course - Vital Signs Vital signs: Temp Pulse Resp BP Pulse Ox 98.3 F 86 16 148/76 H 96 09/13/20 11:38 09/13/20 11:38 09/13/20 11:38 09/13/20 11:38 09/13/20 11:38 - Laboratory Result Diagrams: 09/13/20 12:13 09/13/20 12:13 Laboratory results interpreted by me: 09/13/20 09/13/20 12:13 12:13 WBC 10.6 H RBC 4.30 L Hgb 12.6 L Hct 36.6 L Plt Count 521 H ESR 97 H Chloride 97 L Glucose 113 H C-Reactive Protein 30.3 H Discharge - Discharge Clinical Impression: Gout attack Qualifiers: Gout site: multiple sites Gout etiology: unspecified cause Qualified Code(s): M10.9 - Gout, unspecified Condition: Stable Disposition: HOME, SELF-CARE Instructions: Gout ([facility]), Gout Diet ([facility]) Additional Instructions: Please call your primary care doctor as soon as possible to arrange follow-up Prescriptions: Oxycodone HCl/Acetaminophen [Percocet 5-325 mg Tablet] 1 - 2 tab PO Q4H PRN #15 tablet PRN Reason: Forms: Return to Work Referrals: INGRID HANSEN DO [Primary Care Provider] - Follow up in 3-5 days
[2020-09-13 16:13] VITALS: BP 128/74
== END 2020-09-13 16:11 | disposition home or self-care (01) ==
LOC: ER 11:24
DX: M10.9 Gout, unspecified (principal); M79.10 Myalgia, unspecified site; M25.521 Pain in right elbow; M25.511 Pain in right shoulder; M25.512 Pain in left shoulder; Z87.891 Personal history of nicotine dependence; I10 Essential (primary) hypertension
CPT/HCPCS: 99284; 96372; 36415; 85025; 85652; 86140; 80053; J1885

== ENCOUNTER → 2020-09-23 | Outpatient (CLI) | payer MEDICAID ==
[2020-09-23 15:13] LABS: C-REACTIVE PROTEIN 5.2 mg/L (<10.0); URIC ACID 5.7 mg/dL (3.5-8.5)
== END ==
LOC: OD 13:17
PROVIDERS: ATTEND Nurse Practitioner Acute Care
DX: M79.641 Pain in right hand (principal)
CPT/HCPCS: 36415; 84550; 85652; 86140

== ENCOUNTER → 2020-11-08 | Outpatient (CLI) | payer MEDICAID ==
--- NOTE | 2020-11-08 13:50 | RADIOLOGY REPORT (SQ) ---
EXAM DESCRIPTION: CT ABD/PELVIS WITH IV ORAL IMAGES COMPLETED DATE/TIME: 11/08/2020 1:21 pm REASON FOR STUDY: (K57.20)DVTRCLI OF LG INT W PERFORATION AND ABSCESS W/O BLEEDING K57.20 DVTRCLI O F LG INT W PERFORATION AND ABSCESS W/O BLEED COMPARISON: 08/22/2020 TECHNIQUE: CT scan of the abdomen and pelvis performed using helical scanning technique with dynamic intravenous contrast injection. Oral contrast. Images reviewed with lung, soft tissue, and bone win dows. Reconstructed coronal and sagittal MPR images reviewed. Delayed images for evaluation of the ur inary system also acquired. All images stored on PACS. All CT scanners at this facility use dose modulation, iterative reconstruction, and/or weight based d osing when appropriate to reduce radiation dose to as low as reasonably achievable (ALARA). [facility]: Dose Right [facility]: CareDose [facility]: Dose Right [facility]: Teradose 4D [facility]: [employer] CONTRAST TYPE AND DOSE: contrast/concentration: Isovue 350.00 mmol/ml; Total Contrast Delivered: 90. 0 ml; Total Saline Delivered: 70.0 ml RENAL FUNCTION: Creatinine 0.8 RADIATION DOSE: CT Rad equipment meets quality standard of care and radiation dose reduction techniq ues were employed. CTDIvol: 6.7 - 6.7 mGy. DLP: 716 mGy-cm.. LIMITATIONS: None. FINDINGS: LOWER CHEST: No significant findings. No nodules or infiltrates. LIVER: Normal size. No masses. SPLEEN: Normal size. No focal lesions. PANCREAS: No masses. No significant calcifications. No adjacent inflammation or peripancreatic fluid collections. Pancreatic duct not dilated. GALLBLADDER: No identified stones by CT criteria. No inflammatory changes to suggest cholecystitis. ADRENAL GLANDS: No significant masses or asymmetry. RIGHT KIDNEY AND URETER: No solid masses. No significant calcifications. No hydronephrosis or hyd roureter. LEFT KIDNEY AND URETER: No solid masses. No significant calcifications. No hydronephrosis or hydr oureter. AORTA AND VESSELS: No aneurysm. No dissection. Renal arteries, SMA, celiac without stenosis. RETROPERITONEUM: No retroperitoneal adenopathy, hemorrhage or masses. BOWEL AND PERITONEAL CAVITY: Diverticulitis has resolved. There is a 15 x 18 mm area containing a bu bble of air. This has a thick wall measuring about 7 mm. This is seen on image 64. As this is foll owed cephalad the air tracks posteriorly to a loop of bowel. It is possible that this represents the residual abscess. APPENDIX: Normal. PELVIS: No mass. No free fluid. Normal bladder. ABDOMINAL WALL: No masses. No hernias. BONES: No significant or acute findings. OTHER: No other significant finding. IMPRESSION: The diverticulitis appears to have resolved. There is a small residual area that may re present the prior abscess that is connected by a small fistulous track to a loop of bowel. TECHNICAL DOCUMENTATION: JOB ID: [id number] Quality ID # [id number]: Final reports with documentation of one or more dose reduction techniques (e.g., Au tomated exposure control, adjustment of the mA and/or kV according to patient size, use of iterative reconstruction technique) 2010 [employer]- All Rights Reserved Reading location - IP/workstation name: [email or web address]
== END ==
LOC: RAD 12:35
PROVIDERS: ATTEND Surgery
DX: K57.20 Diverticulitis of large intestine with perforation and abscess without bleeding (principal)
CPT/HCPCS: 74177; 82565